=== PATIENT | male | born 1930 | race Caucasian/White ===

== ENCOUNTER 2017-09-09 09:40 | Inpatient (IN) | payer OTHER ==
[2017-09-09 10:47] VITALS: BMI 17.2
[2017-09-09] MEDS ORDERED: SODIUM CHLORIDE 500 ML IV STA ×2 (11:18→12:37)
--- NOTE | 2017-09-09 11:39 | PDOC ---
History of Present Illness - General Chief Complaint: Altered Mental Status Stated Complaint: Altered Mental Status Time Seen by Provider: 09/09/17 10:00 History Source: Patient, Spouse - History of Present Illness Timing/Duration: other (last night) Associated Symptoms: reports: chest pain, cough, fever/chills. denies: headaches, nausea/vomiting, shortness of breath, syncope Past History - Past Medical History Allergies/Adverse Reactions: Allergies Allergy/AdvReac Type Severity Reaction Status Date / Time No Known Allergies Allergy Verified 09/09/17 10:47 COPD: No HTN: Yes - Surgical History Cardiac Surgery: Yes (quadruple bypass) - Suicide/Smoking/Psychosocial Hx Smoking History: Never smoked Have you smoked in the past 12 months: No Information on smoking cessation initiated: No Drug/Substance Use Hx: No Substance Use Type: None Review of Systems - Review of Systems Constitutional: Yes: Fever Respiratory: Yes: Cough. No: Shortness of Breath, Wheezing Cardiac (ROS): Yes: Chest Pain *Physical Exam - Vital Signs Last Vital Signs Temp Pulse Resp BP Pulse Ox 97.7 F 90 18 138/76 97 09/09/17 09:40 09/09/17 09:40 09/09/17 09:40 09/09/17 09:40 09/09/17 09:40 - Physical Exam General Appearance: Yes: Appropriately Dressed. No: Apparent Distress HEENT: positive: EOMI, Other (dry MM). negative: Scleral Icterus (R), Scleral Icterus (L) Neck: positive: Supple. negative: Lymphadenopathy (R), Lymphadenopathy (L) Respiratory/Chest: positive: Lungs Clear, Normal Breath Sounds. negative: Respiratory Distress Cardiovascular: positive: Regular Rate, S1, S2 Gastrointestinal/Abdominal: positive: Soft. negative: Tender Extremity: positive: Normal Inspection Integumentary: positive: Dry, Warm Neurologic: positive: Alert, Normal Mood/Affect (oriented x1 (baseline per , hx of dementia)) ED Treatment Course - LABORATORY CBC & Chemistry Diagram: 09/09/17 11:50 09/09/17 12:28 - RADIOLOGY Radiology Studies Ordered: Category Date Time Status CHEST X-RAY PORTABLE* [RAD] Stat Radiology 09/09/17 10:59 Taken Medical Decision Making - Medical Decision Making 09/09/17 11:36 87-year-old male history of jxr-zpgvfhq-tpaocteix diabetic, hypertension, dementia per , here with productive cough with pleuritic chest pain and possibly confusion since last night. Had a low-grade fever for 100.9 this a.m. as per . Able to give some history and only states he has cough with chest pain. Denies sob, body aches, nausea, vomiting, headache, neck pain, abd pain, change to BM or dysuria See exam Fever w/ cough R/o PNA vs influenza Stable w/ dry MM, exam otherwise unremarkable -IVF -CXR -ekg -labs and flu -dispo pending 09/09/17 12:41 Patient flu positive. Will give IV fluids and Tamiflu. Also has a troponin of 0.1 with T-wave inversions in 11, 111 and aVF, no old to compare. Patient does report chest pain but only in setting of cough. 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 Patient placed on monitor. Will contact Dr. Lee and get cards rec 09/09/17 12:[address] Lee wants patient admitted to . States patient currently does not have any drilling plant operator. Will discuss case with covering cards 09/09/17 13:[address] Lange who is covering for Dr. Fritz, states no cardiac recommendations at this time. Will see patient in house *DC/Admit/Observation/Transfer Diagnosis at time of Disposition: Influenza A, Elevated troponin - Discharge Dispostion Condition at time of disposition: Fair Admit: Yes - Referrals Referrals: Wyatt Lee MD [Primary Care Provider] - - Patient Instructions - Post Discharge Activity
[2017-09-09 12:30] LABS: N-TERMINAL BNP 8765.45 pg/ml (5-450)
[2017-09-09] MEDS ORDERED: OSELTAMIVIR PHOSPHATE 75 MG CAPSULE PO ONE (12:37)
[2017-09-09 12:40] LABS: BASO % 0.3 % (0-2.0); HEMATOCRIT 43.2 % (35.4-49); MCH 29.5 pg (25.7-33.7); MCHC 32.5 g/dl (32.0-35.9); MEAN PLT VOLUME 8.7 fl (7.5-11.1); MONO % 5.8 % (3.8-10.2); NEUT % 90.9 % (42.8-82.8); PLATELET COUNT 206 K/MM3 (134-434); RBC 4.75 M/mm3 (4.00-5.60); RDW 13.7 % (11.9-15.9); WHITE BLOOD COUNT 18.5 K/mm3 (4.0-10.0)
[2017-09-09 13:00] LABS: ALBUMIN 3.5 g/dl (3.4-5.0); ALK PHOS 139 U/L (45-117); ANION GAP 13 (8-16); BILIRUBIN,TOTAL 1.7 mg/dL (0.2-1.0); BLOOD UREA NITROGEN 24 mg/dL (7-18); CALCIUM 8.9 mg/dL (8.5-10.1); CHLORIDE 101 mmol/L (98-107); CO2 24 mmol/L (21-32); GLUCOSE,RANDOM 191 mg/dL (74-106); SODIUM 138 mmol/L (136-145); TOT PROT 7.6 g/dl (6.4-8.2)
[2017-09-09] MEDS ORDERED: OSELTAMIVIR PHOSPHATE 75 MG CAPSULE ONE (13:20)
[2017-09-09 14:36] LABS: URINE APPEARANCE CLEAR; URINE BILIRUBIN NEGATIVE (NEGATIVE); URINE BLOOD 1+ (NEGATIVE); URINE COLOR DKYELLOW; URINE GLUCOSE (UA) NEGATIVE (NEGATIVE); URINE KETONE 1+ (NEGATIVE); URINE LEUK ESTERASE NEGATIVE (NEGATIVE); URINE NITRITE NEGATIVE (NEGATIVE); URINE UROBILINOGEN 4.0 E.U/dl mg/dL (0.2-1.0)
[2017-09-09 15:11] LABS: URINE PROTEIN 2+ (NEGATIVE)
[2017-09-09 15:17] LABS: CREATININE 1.4 mg/dL (0.7-1.3)
[2017-09-09 15:18] LABS: POTASSIUM 4.1 mmol/L (3.5-5.1); SGOT/AST 36 U/L (15-37)
[2017-09-09 15:29] LABS: SGPT/ALT 26 U/L (12-78)
[2017-09-09 15:31] LABS: EPI CELLS RARE /HPF (FEW); URINE MUCUS RARE
[2017-09-09] MEDS: ATORVASTATIN CA 10 MG TABLET (FP) PO SCH (23:00)
--- NOTE | 2017-09-10 01:48 | CON.CARD ---
Consult Consult Specialty:: cardiology Reason for Consultation:: shorrness of breath; hx CABG - History of Present Illness History of Present Illness: 87-year-old male (b. [place]), with PMhistory of dlk-poeevpy-sxllcvtlj diabetes, CABG ( reports pt having the procedure ?1998; hx multiple MIs), s/ p coronary angiogram 2016 ([place]; per , was told he might need "a pacemaker"), hypertension, dementia (hx primarily given by ), now presents with productive cough with pleuritic chest pain and possibly confusion since last night. Had a low-grade fever for 100.9 this a.m. as per . Able to give some history and only states he has cough with chest pain. 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 Cardio/Vascular: Yes: CAD, HTN, [place] Psych: Yes: Other - Past Surgical History Past Surgical History: Yes: CABG Additional Surgical History: coronary angiogram 2016; reportedly did not require stent or other PCI - Smoking History Smoking history: Never smoked Have you smoked in the past 12 months: No - Social History Usual Living Arrangement: With Spouse Home Medications - Allergies Allergies/Adverse Reactions: Allergies Allergy/AdvReac Type Severity Reaction Status Date / Time No Known Allergies Allergy Verified 09/09/17 10:47 - Home Medications Home Medications: Ambulatory Orders Amlodipine Besylate [Norvasc -] 2.5 mg PO DAILY 09/09/17 Clopidogrel Bisulfate [Clopidogrel] 75 mg PO DAILY 09/09/17 Digoxin [Lanoxin -] 0.125 mg PO DAILY 09/09/17 Isosorbide Mononitrate [Imdur -] 30 mg PO DAILY 09/09/17 Metformin HCl 500 mg PO BID 09/09/17 Metoprolol Tartrate 25 mg PO DAILY 09/09/17 Spironolactone 25 mg PO DAILY 09/09/17 Family Disease History - Family Disease History Family History: Denies Review of Systems - Review of Systems Constitutional: reports: Weakness Eyes: reports: Blurred Vision HENT: reports: Hearing Loss Neck: reports: No Symptoms Cardiovascular: reports: Shortness of Breath Respiratory: reports: Cough, SOB Gastrointestinal: reports: No Symptoms Genitourinary: reports: No Symptoms Musculoskeletal: reports: Muscle Weakness Neurological: reports: Weakness Psychiatric: reports: Other - Risk Factors Known Risk Factors: Yes: Age, Gender, Hypertension, Physical Inactivity, Prior [place] /Emb Stroke, Other (CABG; CHF) Vital Signs: Vital Signs Temperature 97.7 F 09/09/17 09:40 Pulse Rate 90 09/09/17 09:40 Respiratory Rate 18 09/09/17 09:40 Blood Pressure 138/76 09/09/17 09:40 O2 Sat by Pulse Oximetry (%) 97 09/09/17 09:40 Constitutional: Yes: Thin, Other (says a few words, then lapses back into sleep) Eyes: Yes: Conjunctiva Clear HENT: Yes: WNL Neck: Yes: Decreased ROM Respiratory: Yes: Diminished, SOB, Tachypnea Gastrointestinal: Yes: Soft Renal/: No: Anuria Cardiovascular: Yes: Regular Rate and Rhythm JVD: No Carotid Bruit: No Heart Sounds: Yes: S1, S2, S4 Murmur: Yes: Systolic Murmur, Grade 2 Musculoskeletal: Yes: Muscle Weakness Extremities: Yes: Cool Edema: No Peripheral Pulses WNL: No Peripheral Pulses: 1+ Left Doralis Pedis, 1+ Right Dorsalis Pedis Integumentary: Yes: WNL Neurological: Yes: Weakness Psychiatric: Yes: Other - Other Data Labs, Other Data: CBC, BMP 09/09/17 11:50 09/09/17 12:28 Troponin, BNP 09/09/17 09/09/17 09/09/17 11:24 11:50 20:30 Troponin I 0.17 H 0.34 H D B-Natriuretic Peptide 8765.45 H Troponin, BNP 09/09/17 09/09/17 09/09/17 11:24 11:50 20:30 Troponin I 0.17 H 0.34 H D B-Natriuretic Peptide 8765.45 H Echo: Pending Imaging - Results Chest X-ray: Image Reviewed (no acute infiltrate) EKG: Image Reviewed (NSR) Problem List - Problems (1) Congestive heart disease Assessment/Plan: F/u ECHO. BUN/Cr, electrolytes, daily weight, Is ans Os. Code(s): I50.9 - HEART FAILURE, UNSPECIFIED (2) Coronary artery disease Assessment/Plan: s/p CABG ?1998. s/p coronary angiogram 2017 F/u [facility]NI serially. Code(s): I25.10 - ATHSCL HEART DISEASE OF [place] CORONARY ARTERY W/O ANG PCTRS (3) Influenza A Assessment/Plan: f/u with ID. Code(s): J10.1 - FLU DUE TO OTH IDENT INFLUENZA VIRUS W OTH RESP MANIFEST (4) Sepsis Code(s): A41.9 - SEPSIS, UNSPECIFIED ORGANISM (5) Renal insufficiency Code(s): N28.9 - DISORDER OF KIDNEY AND URETER, UNSPECIFIED (6) Leukocytosis Code(s): D72.829 - ELEVATED WHITE BLOOD CELL COUNT, UNSPECIFIED (7) Hypercholesteremia Assessment/Plan: on atorvastatin. Code(s): E78.00 - PURE HYPERCHOLESTEROLEMIA, UNSPECIFIED (8) Shortness of breath Code(s): R06.02 - SHORTNESS OF BREATH (9) Dementia Code(s): F03.90 - UNSPECIFIED DEMENTIA WITHOUT BEHAVIORAL DISTURBANCE
[2017-09-10] MEDS ORDERED: ACETAMINOPHEN 325 MG TABLET (FP) ONE (07:01)
[2017-09-10] MEDS: ACETAMINOPHEN 325 MG TABLET (FP) PO PRN ×2 (07:04→18:13)
[2017-09-10 07:28] LABS: ALBUMIN 3.3 g/dl (3.4-5.0); BLOOD UREA NITROGEN 25 mg/dL (7-18); CHLORIDE 102 mmol/L (98-107); POTASSIUM 3.9 mmol/L (3.5-5.1); SODIUM 139 mmol/L (136-145)
[2017-09-10 07:33] LABS: ALK PHOS 136 U/L (45-117); ANION GAP 12 (8-16); BILIRUBIN,TOTAL 1.8 mg/dL (0.2-1.0); CHOLESTEROL 161 mg/dL (50-200); CO2 25 mmol/L (21-32); GLUCOSE,RANDOM 149 mg/dL (74-106); SGOT/AST 42 U/L (15-37); SGPT/ALT 26 U/L (12-78); TOT PROT 7.2 g/dl (6.4-8.2); TRIGLYCERIDES 75 mg/dL (35-160)
[2017-09-10 07:44] LABS: HEMATOCRIT 45.4 % (35.4-49); HEMOGLOBIN 14.9 GM/dL (11.7-16.9); MCHC 32.8 g/dl (32.0-35.9); MEAN CELL VOLUME 91.6 fl (80-96); MEAN PLT VOLUME 8.9 fl (7.5-11.1); PLATELET COUNT 176 K/MM3 (134-434); RBC 4.96 M/mm3 (4.00-5.60); RDW 13.7 % (11.9-15.9); WHITE BLOOD COUNT 17.3 K/mm3 (4.0-10.0)
--- NOTE | 2017-09-10 08:04 | EKG ---
Test Reason : Blood Pressure : / mmHG Vent. Rate : 092 BPM Atrial Rate : 092 BPM P-R Int : 234 ms QRS Dur : 136 ms QT Int : 392 ms P-R-T Axes : 000 100 -67 degrees QTc Int : 484 ms SINUS RHYTHM WITH 1ST DEGREE A-V BLOCK RIGHTWARD AXIS NON-SPECIFIC INTRA-VENTRICULAR CONDUCTION BLOCK CANNOT RULE OUT SEPTAL INFARCT , AGE UNDETERMINED T WAVE ABNORMALITY, CONSIDER INFERIOR ISCHEMIA ABNORMAL ECG NO PREVIOUS ECGS AVAILABLE Confirmed by BECK BRADY MD ([id number]) on 09/10/2017 8:04:27 AM Referred By: Confirmed By:BECK BRADY MD
[2017-09-10 08:11] LABS: HDL CHOLESTEROL 64 mg/dL (40-60); LDL CHOLESTEROL (ONLY SJRH) 92 mg/dL (5-100)
[2017-09-10] MEDS ORDERED: METOPROLOL TARTRATE 25 MG TABLET (FP) PO SCH (10:00)
--- NOTE | 2017-09-10 10:04 | PN ---
Progress Note, Physician History of Present Illness: 87-year-old male (b. [place]), with PMhistory of tsz-fotrwhi-hzzmdxpdw diabetes, CABG ( reports pt having the procedure ?1998; hx multiple MIs), s/ p coronary angiogram 2016 ([place]; per , was told he might need "a pacemaker"), hypertension, dementia (hx primarily given by ), now presents with productive cough with pleuritic chest pain and possibly confusion since last night. Had a low-grade fever for 100.9 this a.m. as per . Able to give some history and only states he has cough with chest pain. Denies sob, body aches, nausea, vomiting, headache, neck pain, abd pain, change to BM or dysuria - Current Medication List Current Medications: Active Medications Acetaminophen (Tylenol -) 650 mg PO Q6H PRN PRN Reason: PAIN OR FEVER Last Admin: 09/10/17 07:04 Dose: 650 mg Amlodipine Besylate (Norvasc -) 2.5 mg PO DAILY [facility] Aspirin (Ecotrin -) 81 mg PO DAILY [facility] Atorvastatin Calcium (Lipitor -) 10 mg PO HS [facility] Last Admin: 09/09/17 23:00 Dose: 10 mg Clopidogrel Bisulfate (Plavix -) 75 mg PO DAILY [facility] Digoxin (Lanoxin -) 0.125 mg PO DAILY [facility] Isosorbide Mononitrate (Imdur -) 30 mg PO DAILY [facility] Metformin HCl (Glucophage -) 500 mg PO BID [facility] Metoprolol Tartrate (Lopressor -) 25 mg PO DAILY [facility] Oseltamivir Phosphate (Tamiflu -) 75 mg PO BID [facility] Stop: 09/15/17 09:59 - Objective Vital Signs: Vital Signs Temperature 97.7 F 09/09/17 09:40 Pulse Rate 103 H 09/10/17 09:45 Respiratory Rate 18 09/10/17 09:45 Blood Pressure 130/87 09/10/17 09:45 O2 Sat by Pulse Oximetry (%) 95 09/10/17 09:45 Eyes: Yes: WNL, Conjunctiva Clear, EOM Intact HENT: Yes: WNL, Atraumatic, Normocephalic Neck: Yes: WNL, Supple, Trachea Midline Cardiovascular: Yes: WNL, Regular Rate and Rhythm Respiratory: Yes: WNL, Regular, CTA Bilaterally Gastrointestinal: Yes: WNL, Normal Bowel Sounds Genitourinary: Yes: WNL Musculoskeletal: Yes: WNL Extremities: Yes: WNL Edema: No Integumentary: Yes: WNL Neurological: Yes: WNL, Alert, Oriented ...Motor Strength: WNL Psychiatric: Yes: WNL Labs: CBC, BMP 09/10/17 06:06 09/10/17 06:06 Assessment/Plan - Problems (1) Congestive heart disease Assessment/Plan: F/u ECHO. BUN/Cr, electrolytes, daily weight, Is ans Os. Code(s): I50.9 - HEART FAILURE, UNSPECIFIED (2) Coronary artery disease Assessment/Plan: s/p CABG ?1998. s/p coronary angiogram 2017 F/u [facility] serially. Code(s): I25.10 - ATHSCL HEART DISEASE OF [place] CORONARY ARTERY W/O ANG PCTRS (3) Influenza A Assessment/Plan: f/u with ID. Code(s): J10.1 - FLU DUE TO OTH IDENT INFLUENZA VIRUS W OTH RESP MANIFEST (4) Sepsis Code(s): A41.9 - SEPSIS, UNSPECIFIED ORGANISM (5) Renal insufficiency Code(s): N28.9 - DISORDER OF KIDNEY AND URETER, UNSPECIFIED (6) Leukocytosis Code(s): D72.829 - ELEVATED WHITE BLOOD CELL COUNT, UNSPECIFIED (7) Hypercholesteremia Assessment/Plan: on atorvastatin. Code(s): E78.00 - PURE HYPERCHOLESTEROLEMIA, UNSPECIFIED (8) Shortness of breath Code(s): R06.02 - SHORTNESS OF BREATH (9) Dementia Code(s): F03.90 - UNSPECIFIED DEMENTIA WITHOUT BEHAVIORAL DISTURBANCE
[2017-09-10] MEDS: ASPIRIN COATED 81 MG TABLET.EC PO SCH (10:35)
[2017-09-10] MEDS: ISOSORBIDE MONONITRATE 30 MG TAB.SR.24H (FP) PO SCH (10:41)
[2017-09-10] MEDS: DIGOXIN 0.125 MG TABLET (FP) PO SCH (10:41)
[2017-09-10] MEDS: amLODIPine BESYLATE 2.5 MG TABLET (FP) PO SCH (10:41)
[2017-09-10] MEDS: metFORMIN HCL 500 MG TABLET (FP) PO SCH ×2 (10:41→16:14)
[2017-09-10] MEDS: OSELTAMIVIR PHOSPHATE 75 MG CAPSULE PO SCH ×2 (10:42→21:14)
[2017-09-10] MEDS: CLOPIDOGREL BISULFATE 75 MG TABLET (FP) PO SCH (10:42)
--- NOTE | 2017-09-10 16:09 | CON.ID ---
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 Cardio/Vascular: Yes: CAD, HTN, [place] Psych: Yes: Other - Past Surgical History Past Surgical History: Yes: CABG Additional Surgical History: coronary angiogram 2016; reportedly did not require stent or other PCI - Smoking History Smoking history: Never smoked Have you smoked in the past 12 months: No - Social History Usual Living Arrangement: With Spouse ADL: Family Assistance Home Medications - Allergies Allergies/Adverse Reactions: Allergies Allergy/AdvReac Type Severity Reaction Status Date / Time No Known Allergies Allergy Verified 09/09/17 10:47 - Home Medications Home Medications: Ambulatory Orders Amlodipine Besylate [Norvasc -] 2.5 mg PO DAILY 09/09/17 Clopidogrel Bisulfate [Clopidogrel] 75 mg PO DAILY 09/09/17 Digoxin [Lanoxin -] 0.125 mg PO DAILY 09/09/17 Isosorbide Mononitrate [Imdur -] 30 mg PO DAILY 09/09/17 Metformin HCl 500 mg PO BID 09/09/17 Metoprolol Tartrate 25 mg PO DAILY 09/09/17 Spironolactone 25 mg PO DAILY 09/09/17 Family Disease History - Family Disease History Family History: Unable to Obtain Review of Systems - Review of Systems Constitutional: reports: Other (confusion). denies: Fever, Lethargy Eyes: reports: No Symptoms HENT: reports: No Symptoms Neck: reports: No Symptoms Cardiovascular: reports: No Symptoms (with cough), Chest Pain Respiratory: reports: Cough Gastrointestinal: reports: No Symptoms. denies: Abdominal Pain, Diarrhea, Nausea, Vomiting Genitourinary: reports: No Symptoms Musculoskeletal: reports: No Symptoms Physical Exam Vital Signs: Vital Signs Temperature 97.5 F L 09/10/17 14:10 Pulse Rate 84 09/10/17 14:10 Respiratory Rate 18 09/10/17 14:10 Blood Pressure 108/69 09/10/17 14:10 O2 Sat by Pulse Oximetry (%) 99 09/10/17 10:15 Constitutional: Yes: Thin, Other (agitated , does not wish to talk to me, permitted limited exam) Eyes: Yes: Conjunctiva Clear HENT: Yes: Atraumatic, Normocephalic Neck: Yes: Supple Cardiovascular: Yes: Regular Rate and Rhythm Respiratory: Yes: Rhonchi Gastrointestinal: Yes: Other (would not permit exam) Musculoskeletal: Yes: WNL Extremities: Yes: WNL Edema: No Psychiatric: Yes: Alert, Agitated Labs: CBC, BMP 09/10/17 06:06 09/10/17 06:06 UA negative Imaging - Results Chest X-ray: Report Reviewed, Image Reviewed Problem List - Problems (1) Influenza A Code(s): J10.1 - FLU DUE TO OTH IDENT INFLUENZA VIRUS W OTH RESP MANIFEST (2) Leukocytosis Code(s): D72.829 - ELEVATED WHITE BLOOD CELL COUNT, UNSPECIFIED (3) Elevated troponin Code(s): R74.8 - ABNORMAL LEVELS OF OTHER SERUM ENZYMES Assessment/Plan influenza A- continue tamiflu leukocytosis - blood cultures, rocephin, consider RUQ ultrasound CAD with positive troponins
[2017-09-10] MEDS ORDERED: cefTRIAXone 1 GM/50 ML BAG (PRE-DOCKED) IVPB SCH (16:45)
[2017-09-10] MEDS ORDERED: CEFTRIAXONE 1 G/50 ML PREMIX 50 ML IVPB SCH (16:45)
[2017-09-10] MEDS ORDERED: diphenhydrAMINE HCL 25 MG CAPSULE (FP) PO ONE (17:50)
[2017-09-10] MEDS: SODIUM CHLORIDE 1,000 ML IV SCH (18:21)
[2017-09-10] MEDS: CEFTRIAXONE 1 G/50 ML PREMIX 50 ML IVPB SCH (20:50)
[2017-09-10] MEDS ORDERED: PT OWN MED DRAWER 7, Y5N ONE (21:11)
[2017-09-10] MEDS: ATORVASTATIN CA 10 MG TABLET (FP) PO SCH (21:14)
--- NOTE | 2017-09-10 21:41 | HP ---
Admitting History and Physical - Primary Care Physician PCP: Ra Dodge - Admission Chief Complaint: chest pain, influenza History of Present Illness: 87-year-old male history of hei-ljypogb-vdspyvvso diabetic, hypertension, dementia per , here with productive cough with pleuritic chest pain and possibly confusion since last night. Had a low-grade fever for 100.9 this a.m. as per . Able to give some history and only states he has cough with chest pain. Denies sob, body aches, nausea, vomiting, headache, neck pain, abd pain, change to BM or dysuria Upon questioning ,she mentions that patient never takes influenza vaccine because he got flu like symptoms when he last took it years ago. 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 Cardiovascular: Yes: CAD, HTN, [place] Psych: Yes: Other - Past Surgical History Past Surgical History: Yes: CABG - Smoking History Smoking history: Never smoked Have you smoked in the past 12 months: No - Social History ADL: Family Assistance Home Medications - Allergies Allergies/Adverse Reactions: Allergies Allergy/AdvReac Type Severity Reaction Status Date / Time No Known Allergies Allergy Verified 09/09/17 10:47 - Home Medications Home Medications: Ambulatory Orders Amlodipine Besylate [Norvasc -] 2.5 mg PO DAILY 09/09/17 Clopidogrel Bisulfate [Clopidogrel] 75 mg PO DAILY 09/09/17 Digoxin [Lanoxin -] 0.125 mg PO DAILY 09/09/17 Isosorbide Mononitrate [Imdur -] 30 mg PO DAILY 09/09/17 Metformin HCl 500 mg PO BID 09/09/17 Metoprolol Tartrate 25 mg PO DAILY 09/09/17 Spironolactone 25 mg PO DAILY 09/09/17 Review of Systems - Review of Systems Constitutional: reports: Chills, Malaise, Weakness Eyes: reports: No Symptoms HENT: reports: No Symptoms Neck: reports: No Symptoms Cardiovascular: reports: Chest Pain Respiratory: reports: Cough Gastrointestinal: reports: No Symptoms Genitourinary: reports: No Symptoms Breasts: reports: No Symptoms Reported Musculoskeletal: reports: No Symptoms Integumentary: reports: No Symptoms Neurological: reports: No Symptoms Endocrine: reports: No Symptoms Hematology/Lymphatic: reports: No Symptoms Psychiatric: reports: No Symptoms Physical Examination Vital Signs: Vital Signs Temperature 97.3 F L 09/10/17 16:15 Pulse Rate 102 H 09/10/17 16:15 Respiratory Rate 20 09/10/17 16:15 Blood Pressure 147/75 09/10/17 16:15 O2 Sat by Pulse Oximetry (%) 96 09/10/17 15:00 Constitutional: Yes: Well Nourished, No Distress, Calm Cardiovascular: Yes: Regular Rate and Rhythm Respiratory: Yes: Regular Gastrointestinal: Yes: Normal Bowel Sounds, Soft Edema: No Peripheral Pulses WNL: Yes Neurological: Yes: Alert, Oriented Psychiatric: Yes: Alert, Oriented Labs: CBC, BMP 09/10/17 06:06 09/10/17 06:06 Imaging - Results Chest X-ray: Report Reviewed Problem List - Problems (1) Coronary artery disease Assessment/Plan: -seen by cardiology -statin -asa -plavix Code(s): I25.10 - ATHSCL HEART DISEASE OF [place] CORONARY ARTERY W/O ANG PCTRS (2) Dementia Assessment/Plan: -Psychiatry consult -behavioral disturbance at [place] Code(s): F03.90 - UNSPECIFIED DEMENTIA WITHOUT BEHAVIORAL DISTURBANCE (3) Elevated troponin Assessment/Plan: -increasing trend -repeat EKG -seen by Cardiology -tele monitor -Echo reviewed Code(s): R74.8 - ABNORMAL LEVELS OF OTHER SERUM ENZYMES (4) Influenza A Assessment/Plan: -droplet precaution -ID consult -Tamiflu -IVF Code(s): J10.1 - FLU DUE TO OTH IDENT INFLUENZA VIRUS W OTH RESP MANIFEST (5) Leukocytosis Assessment/Plan: -seen by ID -BCUC -IVF -IV abx Code(s): D72.829 - ELEVATED WHITE BLOOD CELL COUNT, UNSPECIFIED (6) Sepsis Assessment/Plan: -seen by ID -BC -IV abx -tylenol for fever >100.0F Code(s): A41.9 - SEPSIS, UNSPECIFIED ORGANISM Assessment/Plan see problem list
[2017-09-10] MEDS ORDERED: LORazepam 2 MG/ML SDV VIAL IVPUSH ONE (23:24)
[2017-09-11] MEDS: INSULIN SLIDING SCALE (NOVOLOG) 1 VIAL SQ SCH ×3 (06:08→17:02)
[2017-09-11] MEDS: SODIUM CHLORIDE 1,000 ML IV SCH (06:59)
--- NOTE | 2017-09-11 10:29 | PN ---
Progress Note, Physician Chief Complaint: Pt opens eyes ; moves limbs spontaneously; confused. History of Present Illness: 87-year-old male (b. [place]), with PM history of zuw-jlxjfcv-pghuwhifv diabetes, CABG ( reports pt having the procedure ?1998; hx multiple MIs), s/ p coronary angiogram 2016 ([place]; per , was told he might need "a pacemaker"), hypertension, dementia (hx primarily given by ), now presents with productive cough with pleuritic chest pain and possibly confusion since last night. Had a low-grade fever for 100.9 this a.m. as per . Able to give some history and only states he has cough with chest pain. Denies sob, body aches, nausea, vomiting, headache, neck pain, abd pain, change to BM or dysuria - Current Medication List Current Medications: Active Medications Acetaminophen (Tylenol -) 650 mg PO Q6H PRN PRN Reason: PAIN OR FEVER Last Admin: 09/10/17 18:13 Dose: 650 mg Amlodipine Besylate (Norvasc -) 2.5 mg PO DAILY [facility] Last Admin: 09/10/17 10:41 Dose: 2.5 mg Aspirin (Ecotrin -) 81 mg PO DAILY [facility] Last Admin: 09/10/17 10:35 Dose: 81 mg Atorvastatin Calcium (Lipitor -) 10 mg PO HS [facility] Last Admin: 09/10/17 21:14 Dose: 10 mg Clopidogrel Bisulfate (Plavix -) 75 mg PO DAILY [facility] Last Admin: 09/10/17 10:42 Dose: 75 mg Digoxin (Lanoxin -) 0.125 mg PO DAILY [facility] Last Admin: 09/10/17 10:41 Dose: 0.125 mg CEFTRIAXONE 1 G/50 ML PREMIX (Ceftriaxone 1 Gm-D5w Bag) 50 mls @ 100 mls/hr IVPB DAILY [facility] Last Admin: 09/10/17 20:50 Dose: 100 mls/hr Sodium Chloride (Normal Saline -) 1,000 mls @ 75 mls/hr IV ASDIR [facility] Last Admin: 09/11/17 06:59 Dose: 75 mls/hr Insulin Aspart (Novolog Vial Sliding Scale -) 1 vial SQ TIDAC [facility] PRN Reason: Protocol Last Admin: 09/11/17 06:08 Dose: Not Given Isosorbide Mononitrate (Imdur -) 30 mg PO DAILY [facility] Last Admin: 09/10/17 10:41 Dose: 30 mg Metoprolol Succinate (Toprol Xl -) 25 mg PO DAILY [facility] Oseltamivir Phosphate (Tamiflu -) 75 mg PO BID [facility] Stop: 09/15/17 09:59 Last Admin: 09/10/17 21:14 Dose: 75 mg - Objective Vital Signs: Vital Signs Temperature 97.9 F 09/11/17 05:53 Pulse Rate 97 H 09/11/17 05:53 Respiratory Rate 20 09/11/17 05:53 Blood Pressure 130/65 09/11/17 05:53 O2 Sat by Pulse Oximetry (%) 96 09/10/17 21:00 Constitutional: Yes: Anxious, Thin Eyes: Yes: WNL HENT: Yes: WNL Neck: Yes: WNL Cardiovascular: Yes: S1 (split), S2 Respiratory: Yes: Regular Gastrointestinal: Yes: Soft ...Rectal Exam: Yes: Deferred Genitourinary: No: Anuria Breast(s): Yes: WNL Musculoskeletal: Yes: Muscle Weakness Extremities: Yes: Cool Edema: No Peripheral Pulses WNL: Yes Integumentary: Yes: WNL Neurological: Yes: Confusion, Weakness Psychiatric: Yes: Other (dementia) Labs: CBC, BMP 09/10/17 06:06 09/10/17 06:06 Abnormal Lab Results 09/10/17 06:06 BUN 25 H Random Glucose 149 H D Total Bilirubin 1.8 H AST 42 H Alkaline Phosphatase 136 H Troponin I 0.33 H Albumin 3.3 L HDL Cholesterol 64 H Digoxin 0.7046 L - ....Imaging Ultrasound: Report Reviewed (gallstones; no signs of acute cholecystitis) Other: Image Reviewed (telemetry: NSR) Problem List - Problems (1) Congestive heart disease Assessment/Plan: ECHO: normal LVEF BUN/Cr, electrolytes, daily weight, Is ands Os. Code(s): I50.9 - HEART FAILURE, UNSPECIFIED (2) Coronary artery disease Assessment/Plan: s/p CABG ?1998. s/p coronary angiogram 2016 TNI 0.17-->0.33; CKBM relative index is low. Likely elevated from demand stress from sepsis. No acute STT changes on EKG ECHO: normal LVEF. Code(s): I25.10 - ATHSCL HEART DISEASE OF [place] CORONARY ARTERY W/O ANG PCTRS (3) Influenza A Assessment/Plan: f/u with ID. Code(s): J10.1 - FLU DUE TO OTH IDENT INFLUENZA VIRUS W OTH RESP MANIFEST (4) Sepsis Code(s): A41.9 - SEPSIS, UNSPECIFIED ORGANISM (5) Renal insufficiency Code(s): N28.9 - DISORDER OF KIDNEY AND URETER, UNSPECIFIED (6) Leukocytosis Code(s): D72.829 - ELEVATED WHITE BLOOD CELL COUNT, UNSPECIFIED (7) Hypercholesteremia Assessment/Plan: on atorvastatin; increase to 20 mg daily (LDL 92 mg/dL). Code(s): E78.00 - PURE HYPERCHOLESTEROLEMIA, UNSPECIFIED (8) Shortness of breath Code(s): R06.02 - SHORTNESS OF BREATH (9) Dementia Code(s): F03.90 - UNSPECIFIED DEMENTIA WITHOUT BEHAVIORAL DISTURBANCE
--- NOTE | 2017-09-11 10:32 | EKG ---
Test Reason : Blood Pressure : / mmHG Vent. Rate : 092 BPM Atrial Rate : 092 BPM P-R Int : 000 ms QRS Dur : 132 ms QT Int : 388 ms P-R-T Axes : 000 101 167 degrees QTc Int : 479 ms SINUS RHYTHM WITH PREMATURE ATRIAL COMPLEXES IN A PATTERN OF BIGEMINY RIGHT BUNDLE BRANCH BLOCK T WAVE ABNORMALITY, CONSIDER INFERIOR ISCHEMIA ABNORMAL ECG WHEN COMPARED WITH ECG OF 09-SEP-2017 10:08, PREMATURE ATRIAL COMPLEXES ARE NOW PRESENT AK INTERVAL HAS DECREASED RIGHT BUNDLE BRANCH BLOCK HAS REPLACED NON-SPECIFIC INTRA-VENTRICULAR CONDUCTION BLOCK MINIMAL CRITERIA FOR SEPTAL INFARCT ARE NO LONGER PRESENT Confirmed by FIOR SEGUNDO MD ([id number]) on 09/11/2017 10:31:46 AM Referred By: Confirmed By:FIOR SEGUNDO MD
[2017-09-11] MEDS ORDERED: PT OWN MED DRAWER 7, Y5N ONE (10:43)
[2017-09-11] MEDS: CEFTRIAXONE 1 G/50 ML PREMIX 50 ML IVPB SCH (10:48)
[2017-09-11] MEDS: OSELTAMIVIR PHOSPHATE 75 MG CAPSULE PO SCH ×2 (10:53→21:29)
[2017-09-11] MEDS: amLODIPine BESYLATE 2.5 MG TABLET (FP) PO SCH (10:53)
[2017-09-11] MEDS: DIGOXIN 0.125 MG TABLET (FP) PO SCH (10:53)
[2017-09-11] MEDS: CLOPIDOGREL BISULFATE 75 MG TABLET (FP) PO SCH (10:53)
[2017-09-11] MEDS: metoPROLOL SUCCINATE 25 MG TAB.SR.24H (FP) PO SCH (10:53)
[2017-09-11] MEDS: ISOSORBIDE MONONITRATE 30 MG TAB.SR.24H (FP) PO SCH (10:53)
[2017-09-11] MEDS: ASPIRIN COATED 81 MG TABLET.EC PO SCH (10:53)
--- NOTE | 2017-09-11 11:57 | CON.PSY ---
Psychiatry Consult Chief Complaint: Patient seen for Psych eval. Spoke to patients daughterr and . 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 Symptoms: reports: Inability to Control Temper - Previous Psychiatric Treatment Outpatient: None Inpatient: None - Previous Substance Abuse Treatment Outpatient: None Inpatient: None - Current Medications Current Medications: Active Medications Acetaminophen (Tylenol -) 650 mg PO Q6H PRN PRN Reason: PAIN OR FEVER Last Admin: 09/10/17 18:13 Dose: 650 mg Amlodipine Besylate (Norvasc -) 2.5 mg PO DAILY [facility] Last Admin: 09/11/17 10:53 Dose: Not Given Aspirin (Ecotrin -) 81 mg PO DAILY [facility] Last Admin: 09/11/17 10:53 Dose: Not Given Atorvastatin Calcium (Lipitor -) 20 mg PO HS [facility] Clopidogrel Bisulfate (Plavix -) 75 mg PO DAILY [facility] Last Admin: 09/11/17 10:53 Dose: Not Given Digoxin (Lanoxin -) 0.125 mg PO DAILY [facility] Last Admin: 09/11/17 10:53 Dose: Not Given CEFTRIAXONE 1 G/50 ML PREMIX (Ceftriaxone 1 Gm-D5w Bag) 50 mls @ 100 mls/hr IVPB DAILY [facility] Last Admin: 09/11/17 10:48 Dose: 100 mls/hr Sodium Chloride (Normal Saline -) 1,000 mls @ 75 mls/hr IV ASDIR [facility] Last Admin: 09/11/17 06:59 Dose: 75 mls/hr Insulin Aspart (Novolog Vial Sliding Scale -) 1 vial SQ TIDAC [facility] PRN Reason: Protocol Last Admin: 09/11/17 10:53 Dose: Not Given Isosorbide Mononitrate (Imdur -) 30 mg PO DAILY [facility] Last Admin: 09/11/17 10:53 Dose: Not Given Metoprolol Succinate (Toprol Xl -) 25 mg PO DAILY [facility] Last Admin: 09/11/17 10:53 Dose: Not Given Oseltamivir Phosphate (Tamiflu -) 75 mg PO BID [facility] Stop: 09/15/17 09:59 Last Admin: 09/11/17 10:53 Dose: Not Given - Allergies Allergies: Allergies Allergy/AdvReac Type Severity Reaction Status Date / Time No Known Allergies Allergy Verified 09/09/17 10:47 - Current Living Status Usual Living Arrangement: With Spouse - Current Mental Status Evaluation Appearance: Disheveled Attitude: Guarded - Affect Affect: Constrictive Appropriateness: Not Appropriate - Mood Mood: Irritable - Speech/Language Expressive: Delayed - Psychomotor Activity Psychomotor Activity: Hyperactive - Thought Process Thought Process: [place] - Thought Content Hallucinations: Absent Delusions: Absent - Self Perception Self Perception: Depersonalization - Cognition Attention: Diminished Memory, Immediate Recall: Impaired Memory, Short Term: 0/3 Memory, Remote with Promptin/3 - Concentration Serial Sevens Intact: No Simple Calculations Intact: No - Abstraction Proverb Interpretation: [place] Judgement: Severely Impaired - Insight Insight: Impaired - Impulse Control Impulse Control: Moderately Impaired - Suicidal Ideation Suicidal Ideation: No - Homicidal Ideation Homicidal Ideation: No Assessment/Plan 1) Staret Zyprexa 5mg po hs.
[2017-09-11] MEDS: METOPROLOL TARTRATE 5 MG/5 ML VIAL IVPUSH SCH ×3 (12:38→21:22)
--- NOTE | 2017-09-11 13:29 | PN ---
Progress Note, Physician Chief Complaint: agitated last night was anxious got ativan and benadryl today in morning when i saw him he was sleepy not able to take oral meds, tried to feed him egg but was still in his mouth isolation bc of flu - Current Medication List Current Medications: Active Medications Acetaminophen (Tylenol -) 650 mg PO Q6H PRN PRN Reason: PAIN OR FEVER Last Admin: 09/10/17 18:13 Dose: 650 mg Amlodipine Besylate (Norvasc -) 2.5 mg PO DAILY [facility] Last Admin: 09/11/17 10:53 Dose: Not Given Aspirin (Ecotrin -) 81 mg PO DAILY [facility] Last Admin: 09/11/17 10:53 Dose: Not Given Atorvastatin Calcium (Lipitor -) 20 mg PO HS [facility] Clopidogrel Bisulfate (Plavix -) 75 mg PO DAILY [facility] Last Admin: 09/11/17 10:53 Dose: Not Given Digoxin (Lanoxin -) 0.125 mg PO DAILY [facility] Last Admin: 09/11/17 10:53 Dose: Not Given CEFTRIAXONE 1 G/50 ML PREMIX (Ceftriaxone 1 Gm-D5w Bag) 50 mls @ 100 mls/hr IVPB DAILY [facility] Last Admin: 09/11/17 10:48 Dose: 100 mls/hr Sodium Chloride (Normal Saline -) 1,000 mls @ 75 mls/hr IV ASDIR [facility] Last Admin: 09/11/17 06:59 Dose: 75 mls/hr Insulin Aspart (Novolog Vial Sliding Scale -) 1 vial SQ TIDAC [facility] PRN Reason: Protocol Last Admin: 09/11/17 10:53 Dose: Not Given Isosorbide Mononitrate (Imdur -) 30 mg PO DAILY [facility] Last Admin: 09/11/17 10:53 Dose: Not Given Metoprolol Succinate (Toprol Xl -) 25 mg PO DAILY [facility] Last Admin: 09/11/17 10:53 Dose: Not Given Metoprolol Tartrate (Lopressor Injection -) 2.5 mg IVPUSH Q6H-IV [facility] Last Admin: 09/11/17 12:38 Dose: 2.5 mg Olanzapine (Zyprexa -) 5 mg PO HS [facility] Oseltamivir Phosphate (Tamiflu -) 75 mg PO BID [facility] Stop: 09/15/17 09:59 Last Admin: 09/11/17 10:53 Dose: Not Given - Objective Vital Signs: Vital Signs Temperature 98.6 F 09/11/17 10:00 Pulse Rate 101 H 09/11/17 12:38 Respiratory Rate 20 09/11/17 10:00 Blood Pressure 136/79 09/11/17 12:38 O2 Sat by Pulse Oximetry (%) 96 09/10/17 21:00 Constitutional: Yes: Calm Cardiovascular: Yes: Regular Rate and Rhythm, S1, S2 Respiratory: Yes: CTA Bilaterally Gastrointestinal: Yes: Normal Bowel Sounds, Soft Edema: No Neurological: Yes: Other (patient does wake up when call his name and asked if he is ok then closes his eye) Labs: CBC, BMP 09/10/17 06:06 09/10/17 06:06 Problem List - Problems (1) Dementia Assessment/Plan: seen by psych started on zyprexa Code(s): F03.90 - UNSPECIFIED DEMENTIA WITHOUT BEHAVIORAL DISTURBANCE (2) Influenza A Assessment/Plan: isolation tamiflu Code(s): J10.1 - FLU DUE TO OTH IDENT INFLUENZA VIRUS W OTH RESP MANIFEST (3) Congestive heart disease Assessment/Plan: echo normal LVEF Code(s): I50.9 - HEART FAILURE, UNSPECIFIED (4) Coronary artery disease Assessment/Plan: asa,lipitor and BB iv BB prn if cannot take oral meds bc he is tired and sleepy Code(s): I25.10 - ATHSCL HEART DISEASE OF [place] CORONARY ARTERY W/O ANG PCTRS (5) Leukocytosis Assessment/Plan: iv rocephin blood cultures pending RUQ sono shows contracted GB with multiple gall stones Code(s): D72.829 - ELEVATED WHITE BLOOD CELL COUNT, UNSPECIFIED (6) Elevated troponin Assessment/Plan: trend troponins cardio on board echo done BB ,statin and aspirn Code(s): R74.8 - ABNORMAL LEVELS OF OTHER SERUM ENZYMES Assessment/Plan avoid benzodiazepines
[2017-09-11] MEDS: ACETAMINOPHEN 325 MG TABLET (FP) PO PRN (14:15)
--- NOTE | 2017-09-11 19:18 | PN ---
Progress Note, Physician History of Present Illness: Confused No acute distress Temp spike noted WBC elevated - Current Medication List Current Medications: Active Medications Acetaminophen (Tylenol -) 650 mg PO Q6H PRN PRN Reason: PAIN OR FEVER Last Admin: 09/11/17 14:15 Dose: 650 mg Amlodipine Besylate (Norvasc -) 2.5 mg PO DAILY [facility] Last Admin: 09/11/17 10:53 Dose: Not Given Aspirin (Ecotrin -) 81 mg PO DAILY [facility] Last Admin: 09/11/17 10:53 Dose: Not Given Atorvastatin Calcium (Lipitor -) 20 mg PO HS [facility] Clopidogrel Bisulfate (Plavix -) 75 mg PO DAILY [facility] Last Admin: 09/11/17 10:53 Dose: Not Given Digoxin (Lanoxin -) 0.125 mg PO DAILY [facility] Last Admin: 09/11/17 10:53 Dose: Not Given CEFTRIAXONE 1 G/50 ML PREMIX (Ceftriaxone 1 Gm-D5w Bag) 50 mls @ 100 mls/hr IVPB DAILY [facility] Last Admin: 09/11/17 10:48 Dose: 100 mls/hr Sodium Chloride (Normal Saline -) 1,000 mls @ 75 mls/hr IV ASDIR [facility] Last Admin: 09/11/17 06:59 Dose: 75 mls/hr Insulin Aspart (Novolog Vial Sliding Scale -) 1 vial SQ TIDAC [facility] PRN Reason: Protocol Last Admin: 09/11/17 17:02 Dose: Not Given Isosorbide Mononitrate (Imdur -) 30 mg PO DAILY [facility] Last Admin: 09/11/17 10:53 Dose: Not Given Metoprolol Succinate (Toprol Xl -) 25 mg PO DAILY [facility] Last Admin: 09/11/17 10:53 Dose: Not Given Metoprolol Tartrate (Lopressor Injection -) 2.5 mg IVPUSH Q6H-IV [facility] Last Admin: 09/11/17 14:45 Dose: 2.5 mg Olanzapine (Zyprexa -) 5 mg PO HS [facility] Oseltamivir Phosphate (Tamiflu -) 75 mg PO BID [facility] Stop: 09/15/17 09:59 Last Admin: 09/11/17 10:53 Dose: Not Given - Objective Vital Signs: Vital Signs Temperature 98.4 F 09/11/17 18:07 Pulse Rate 78 09/11/17 18:07 Respiratory Rate 18 09/11/17 18:07 Blood Pressure 106/71 09/11/17 18:07 O2 Sat by Pulse Oximetry (%) 97 09/11/17 09:00 Constitutional: Yes: No Distress, Cachectic Eyes: Yes: Conjunctiva Clear Cardiovascular: Yes: Regular Rate and Rhythm, S1, S2 Respiratory: Yes: Rhonchi Gastrointestinal: Yes: Normal Bowel Sounds, Soft Labs: CBC, BMP 09/10/17 06:06 09/10/17 06:06 Assessment/Plan Acute influenza Fever/ leukocytosis OBS Continue Tamiflu/ ceftriaxone Await c/s
[2017-09-11] MEDS: ATORVASTATIN CA 20 MG TABLET (FP) PO SCH (21:29)
[2017-09-11] MEDS: OLANZapine 5 MG TABLET PO SCH (21:29)
[2017-09-11] MEDS ORDERED: LORazepam 2 MG/ML SDV VIAL IVPUSH ONE (23:15)
[2017-09-12] MEDS: METOPROLOL TARTRATE 5 MG/5 ML VIAL IVPUSH SCH ×4 (02:20→21:18)
[2017-09-12] MEDS: INSULIN SLIDING SCALE (NOVOLOG) 1 VIAL SQ SCH ×3 (06:17→18:17)
[2017-09-12] MEDS: amLODIPine BESYLATE 2.5 MG TABLET (FP) PO SCH (11:53)
[2017-09-12] MEDS: metoPROLOL SUCCINATE 25 MG TAB.SR.24H (FP) PO SCH (11:53)
[2017-09-12] MEDS: ASPIRIN COATED 81 MG TABLET.EC PO SCH (11:53)
[2017-09-12] MEDS: DIGOXIN 0.125 MG TABLET (FP) PO SCH (11:53)
[2017-09-12] MEDS: ISOSORBIDE MONONITRATE 30 MG TAB.SR.24H (FP) PO SCH (11:53)
[2017-09-12] MEDS: CLOPIDOGREL BISULFATE 75 MG TABLET (FP) PO SCH (11:53)
[2017-09-12] MEDS: CEFTRIAXONE 1 G/50 ML PREMIX 50 ML IVPB SCH (11:54)
[2017-09-12] MEDS: SODIUM CHLORIDE 1,000 ML IV SCH ×2 (11:54→18:17)
[2017-09-12] MEDS: OSELTAMIVIR PHOSPHATE 75 MG CAPSULE PO SCH ×2 (11:56→21:19)
--- NOTE | 2017-09-12 14:17 | PN ---
Progress Note, Physician - Current Medication List Current Medications: Active Medications Acetaminophen (Tylenol -) 650 mg PO Q6H PRN PRN Reason: PAIN OR FEVER Last Admin: 09/11/17 14:15 Dose: 650 mg Amlodipine Besylate (Norvasc -) 2.5 mg PO DAILY [facility] Last Admin: 09/12/17 11:53 Dose: 2.5 mg Aspirin (Ecotrin -) 81 mg PO DAILY [facility] Last Admin: 09/12/17 11:53 Dose: 81 mg Atorvastatin Calcium (Lipitor -) 20 mg PO HS [facility] Last Admin: 09/11/17 21:29 Dose: 20 mg Clopidogrel Bisulfate (Plavix -) 75 mg PO DAILY [facility] Last Admin: 09/12/17 11:53 Dose: 75 mg Digoxin (Lanoxin -) 0.125 mg PO DAILY [facility] Last Admin: 09/12/17 11:53 Dose: 0.125 mg CEFTRIAXONE 1 G/50 ML PREMIX (Ceftriaxone 1 Gm-D5w Bag) 50 mls @ 100 mls/hr IVPB DAILY [facility] Last Admin: 09/12/17 11:54 Dose: 100 mls/hr Sodium Chloride (Normal Saline -) 1,000 mls @ 75 mls/hr IV ASDIR [facility] Last Admin: 09/12/17 11:54 Dose: 75 mls/hr Insulin Aspart (Novolog Vial Sliding Scale -) 1 vial SQ TIDAC [facility] PRN Reason: Protocol Last Admin: 09/12/17 11:59 Dose: Not Given Isosorbide Mononitrate (Imdur -) 30 mg PO DAILY [facility] Last Admin: 09/12/17 11:53 Dose: 30 mg Metoprolol Succinate (Toprol Xl -) 25 mg PO DAILY [facility] Last Admin: 09/12/17 11:53 Dose: 25 mg Metoprolol Tartrate (Lopressor Injection -) 2.5 mg IVPUSH Q6H-IV [facility] Last Admin: 09/12/17 09:00 Dose: 2.5 mg Olanzapine (Zyprexa -) 5 mg PO HS [facility] Last Admin: 09/11/17 21:29 Dose: 5 mg Oseltamivir Phosphate (Tamiflu -) 75 mg PO BID [facility] Stop: 09/15/17 09:59 Last Admin: 09/12/17 11:56 Dose: 75 mg - Objective Vital Signs: Vital Signs Temperature 98 F 09/12/17 10:00 Pulse Rate 99 H 09/12/17 11:53 Respiratory Rate 20 09/12/17 10:00 Blood Pressure 130/79 09/12/17 10:00 O2 Sat by Pulse Oximetry (%) 96 09/11/17 21:00 Labs: CBC, BMP 09/10/17 06:06 09/10/17 06:06 Problem List - Problems (1) Dementia Code(s): F03.90 - UNSPECIFIED DEMENTIA WITHOUT BEHAVIORAL DISTURBANCE (2) Influenza A Code(s): J10.1 - FLU DUE TO OTH IDENT INFLUENZA VIRUS W OTH RESP MANIFEST (3) Congestive heart disease Code(s): I50.9 - HEART FAILURE, UNSPECIFIED (4) Coronary artery disease Code(s): I25.10 - ATHSCL HEART DISEASE OF [place] CORONARY ARTERY W/O ANG PCTRS (5) Leukocytosis Code(s): D72.829 - ELEVATED WHITE BLOOD CELL COUNT, UNSPECIFIED (6) Elevated troponin Code(s): R74.8 - ABNORMAL LEVELS OF OTHER SERUM ENZYMES
--- NOTE | 2017-09-12 14:23 | PN ---
Progress Note, Physician Chief Complaint: patient is not talking much is sleepy fever spike noted cultures sent out as well on iv abx spoke to grand daughter and explained her detail - Current Medication List Current Medications: Active Medications Acetaminophen (Tylenol -) 650 mg PO Q6H PRN PRN Reason: PAIN OR FEVER Last Admin: 09/11/17 14:15 Dose: 650 mg Amlodipine Besylate (Norvasc -) 2.5 mg PO DAILY [facility] Last Admin: 09/12/17 11:53 Dose: 2.5 mg Aspirin (Ecotrin -) 81 mg PO DAILY [facility] Last Admin: 09/12/17 11:53 Dose: 81 mg Atorvastatin Calcium (Lipitor -) 20 mg PO HS [facility] Last Admin: 09/11/17 21:29 Dose: 20 mg Clopidogrel Bisulfate (Plavix -) 75 mg PO DAILY [facility] Last Admin: 09/12/17 11:53 Dose: 75 mg Digoxin (Lanoxin -) 0.125 mg PO DAILY [facility] Last Admin: 09/12/17 11:53 Dose: 0.125 mg CEFTRIAXONE 1 G/50 ML PREMIX (Ceftriaxone 1 Gm-D5w Bag) 50 mls @ 100 mls/hr IVPB DAILY [facility] Last Admin: 09/12/17 11:54 Dose: 100 mls/hr Sodium Chloride (Normal Saline -) 1,000 mls @ 75 mls/hr IV ASDIR [facility] Last Admin: 09/12/17 11:54 Dose: 75 mls/hr Insulin Aspart (Novolog Vial Sliding Scale -) 1 vial SQ TIDAC [facility] PRN Reason: Protocol Last Admin: 09/12/17 11:59 Dose: Not Given Isosorbide Mononitrate (Imdur -) 30 mg PO DAILY [facility] Last Admin: 09/12/17 11:53 Dose: 30 mg Metoprolol Succinate (Toprol Xl -) 25 mg PO DAILY [facility] Last Admin: 09/12/17 11:53 Dose: 25 mg Metoprolol Tartrate (Lopressor Injection -) 2.5 mg IVPUSH Q6H-IV [facility] Last Admin: 09/12/17 09:00 Dose: 2.5 mg Olanzapine (Zyprexa -) 5 mg PO HS [facility] Last Admin: 09/11/17 21:29 Dose: 5 mg Oseltamivir Phosphate (Tamiflu -) 75 mg PO BID [facility] Stop: 09/15/17 09:59 Last Admin: 01/26/18 11:56 Dose: 75 mg - Objective Vital Signs: Vital Signs Temperature 98 F 09/12/17 10:00 Pulse Rate 99 H 09/12/17 11:53 Respiratory Rate 20 09/12/17 10:00 Blood Pressure 130/79 09/12/17 10:00 O2 Sat by Pulse Oximetry (%) 96 09/11/17 21:00 Constitutional: Yes: Calm Cardiovascular: Yes: Regular Rate and Rhythm, S1, S2 Respiratory: Yes: Diminished Gastrointestinal: Yes: Soft Neurological: Yes: Lethargy (sleepy) Labs: CBC, BMP 09/10/17 06:06 09/10/17 06:06 Problem List - Problems (1) Leukocytosis Assessment/Plan: iv rocephin blood cultures pending RUQ sono shows contracted GB with multiple gall stones] Microbiology 09/11/17 06:15 Urine - Urine Clean Catch Urine Culture - Final NO GROWTH OBTAINED Code(s): D72.829 - ELEVATED WHITE BLOOD CELL COUNT, UNSPECIFIED (2) Dementia Assessment/Plan: seen by psych started on zyprexa Code(s): F03.90 - UNSPECIFIED DEMENTIA WITHOUT BEHAVIORAL DISTURBANCE (3) Influenza A Assessment/Plan: isolation tamiflu Code(s): J10.1 - FLU DUE TO OTH IDENT INFLUENZA VIRUS W OTH RESP MANIFEST (4) Congestive heart disease Assessment/Plan: echo normal LVEF Code(s): I50.9 - HEART FAILURE, UNSPECIFIED (5) Coronary artery disease Assessment/Plan: asa,lipitor and BB iv BB prn if cannot take oral meds bc he is tired and sleepy Code(s): I25.10 - ATHSCL HEART DISEASE OF [place] CORONARY ARTERY W/O ANG PCTRS (6) Elevated troponin Assessment/Plan: trend troponins cardio on board echo done BB ,statin and aspirn Code(s): R74.8 - ABNORMAL LEVELS OF OTHER SERUM ENZYMES (7) Poor fluid intake Assessment/Plan: jennifer rodriguez to see patient ent to examine back of mouth and asess his tongue ivf Code(s): R63.8 - OTHER SYMPTOMS AND SIGNS CONCERNING FOOD AND FLUID INTAKE
--- NOTE | 2017-09-12 16:08 | PN ---
Progress Note, Physician Chief Complaint: Pt opens eyes; talks nonsensically. His is at bedside, and worries his throat may be painful; she says his mouth has remained open much more in hospital than previously. History of Present Illness: Pt is an 87-year-old male (b. 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 Had a low-grade fever for 100.9 this a.m. as per . Able to give some history and only states he has cough with chest pain. Denies sob, body aches, nausea, vomiting, headache, neck pain, abd pain, change to BM or dysuria - Current Medication List Current Medications: Active Medications Acetaminophen (Tylenol -) 650 mg PO Q6H PRN PRN Reason: PAIN OR FEVER Last Admin: 09/11/17 14:15 Dose: 650 mg Amlodipine Besylate (Norvasc -) 2.5 mg PO DAILY [facility] Last Admin: 09/12/17 11:53 Dose: 2.5 mg Aspirin (Ecotrin -) 81 mg PO DAILY [facility] Last Admin: 09/12/17 11:53 Dose: 81 mg Atorvastatin Calcium (Lipitor -) 20 mg PO HS [facility] Last Admin: 09/11/17 21:29 Dose: 20 mg Clopidogrel Bisulfate (Plavix -) 75 mg PO DAILY [facility] Last Admin: 09/12/17 11:53 Dose: 75 mg Digoxin (Lanoxin -) 0.125 mg PO DAILY [facility] Last Admin: 09/12/17 11:53 Dose: 0.125 mg CEFTRIAXONE 1 G/50 ML PREMIX (Ceftriaxone 1 Gm-D5w Bag) 50 mls @ 100 mls/hr IVPB DAILY [facility] Last Admin: 09/12/17 11:54 Dose: 100 mls/hr Sodium Chloride (Normal Saline -) 1,000 mls @ 75 mls/hr IV ASDIR [facility] Last Admin: 09/12/17 11:54 Dose: 75 mls/hr Insulin Aspart (Novolog Vial Sliding Scale -) 1 vial SQ TIDAC [facility] PRN Reason: Protocol Last Admin: 09/12/17 11:59 Dose: Not Given Isosorbide Mononitrate (Imdur -) 30 mg PO DAILY [facility] Last Admin: 09/12/17 11:53 Dose: 30 mg Metoprolol Succinate (Toprol Xl -) 25 mg PO DAILY [facility] Last Admin: 09/12/17 11:53 Dose: 25 mg Metoprolol Tartrate (Lopressor Injection -) 2.5 mg IVPUSH Q6H-IV [facility] Last Admin: 09/12/17 09:00 Dose: 2.5 mg Olanzapine (Zyprexa -) 5 mg PO HS [facility] Last Admin: 09/11/17 21:29 Dose: 5 mg Oseltamivir Phosphate (Tamiflu -) 75 mg PO BID [facility] Stop: 09/15/17 09:59 Last Admin: 09/12/17 11:56 Dose: 75 mg - Objective Vital Signs: Vital Signs Temperature 98 F 09/12/17 10:00 Pulse Rate 93 H 09/12/17 15:26 Respiratory Rate 20 09/12/17 15:26 Blood Pressure 120/70 09/12/17 15:26 O2 Sat by Pulse Oximetry (%) 96 09/11/17 21:00 Constitutional: Yes: Anxious Eyes: Yes: WNL HENT: Yes: WNL Neck: Yes: WNL Cardiovascular: Yes: Regular Rate and Rhythm, S1, S2 (split) Respiratory: Yes: Regular Gastrointestinal: Yes: Soft Genitourinary: Yes: Anuria Musculoskeletal: Yes: Muscle Weakness Extremities: Yes: Cool Edema: No Peripheral Pulses WNL: Yes Integumentary: Yes: WNL Neurological: Yes: Confusion Psychiatric: Yes: Other (dementia) Labs: CBC, BMP 09/10/17 06:06 09/10/17 06:06 Abnormal Lab Results 09/12/17 06:53 CK-MB (CK-2) 5.812 H Troponin I 0.15 H D - ....Imaging Other: Image Reviewed Problem List - Problems (1) Congestive heart disease Assessment/Plan: BNP 8,765 initially. No JVD. ECHO: normal LVEF CXR: no acute pathology. BUN/Cr, electrolytes, daily weight, Is ands Os. Consider starting ACEI (improving renal function; HTN; DM; diastolic CHF). May not require digoxin (normal sinus rhythm; ?no hx AF; systolic LVEF is normal ). If need to continue, keep level 0.5-1.0 (presently 0.7). Unless pt has bronchial asthma, may use beta blockers if need for rate control; pt has CAD. Code(s): I50.9 - HEART FAILURE, UNSPECIFIED (2) Coronary artery disease Assessment/Plan: s/p CABG ?1998. s/p coronary angiogram 2016 (f/u results of study: ? coronary stent). TNI 0.17-->0.33-->0.15; CKBM relative index is low. TNI ikely elevated from demand stress from sepsis. No acute STT changes on EKG ECHO: normal LVEF. On ASA and clopidogrel. Code(s): I25.10 - ATHSCL HEART DISEASE OF [place] CORONARY ARTERY W/O ANG PCTRS (3) Influenza A Assessment/Plan: On Tamiflu. f/u with ID. Code(s): J10.1 - FLU DUE TO OTH IDENT INFLUENZA VIRUS W OTH RESP MANIFEST (4) Sepsis Assessment/Plan: Finishing course of IV antibiotics. Code(s): A41.9 - SEPSIS, UNSPECIFIED ORGANISM (5) Renal insufficiency Assessment/Plan: improving renal values. F/u Is and Os, BUn/Cr. Code(s): N28.9 - DISORDER OF KIDNEY AND URETER, UNSPECIFIED (6) Leukocytosis Code(s): D72.829 - ELEVATED WHITE BLOOD CELL COUNT, UNSPECIFIED (7) Hypercholesteremia Assessment/Plan: on atorvastatin; increased to 20 mg daily (LDL 92 mg/dL). Code(s): E78.00 - PURE HYPERCHOLESTEROLEMIA, UNSPECIFIED (8) Dementia Code(s): F03.90 - UNSPECIFIED DEMENTIA WITHOUT BEHAVIORAL DISTURBANCE
--- NOTE | 2017-09-12 17:22 | PN ---
Progress Note (short form) - Note Progress Note: remains confused but alert Vital Signs Period Temp Pulse Resp BP Sys/Moise Pulse Ox Last 24 Hr 98 F-98.5 F 78-99 18-20 106-145/68-85 96 cor-rrr lungs decreased bases at bases abd soft,nt ext no edema CBC, BMP 09/10/17 06:06 09/10/17 06:06 Microbiology 09/11/17 16:00 Blood - Peripheral Venous Blood Culture - Preliminary NO GROWTH OBTAINED AFTER 24 HOURS, INCUBATION TO CONTINUE FOR 4 DAYS. 09/11/17 16:00 Blood - Peripheral Venous Blood Culture - Preliminary NO GROWTH OBTAINED AFTER 24 HOURS, INCUBATION TO CONTINUE FOR 4 DAYS. 09/11/17 06:15 Urine - Urine Clean Catch Urine Culture - Final NO GROWTH OBTAINED 09/10/17 19:45 Blood - Peripheral Venous Blood Culture - Preliminary NO GROWTH OBTAINED AFTER 24 HOURS, INCUBATION TO CONTINUE FOR 4 DAYS. 09/10/17 19:55 Blood - Peripheral Venous Blood Culture - Preliminary NO GROWTH OBTAINED AFTER 24 HOURS, INCUBATION TO CONTINUE FOR 4 DAYS. 09/09/17 11:25 Nasopharyngeal Swab Influenza Types A,B Antigen (RUSSELL) - Final 09/09/17 11:25 Nasopharyngeal Swab - Final sonogram-contracted gb with stones a/p influenza a leukocytosis repeat cbc if cultures negative in am consider d/c ceftriaxone Problem List - Problems (1) Influenza A Code(s): J10.1 - FLU DUE TO OTH IDENT INFLUENZA VIRUS W OTH RESP MANIFEST (2) Leukocytosis Code(s): D72.829 - ELEVATED WHITE BLOOD CELL COUNT, UNSPECIFIED (3) Elevated troponin Code(s): R74.8 - ABNORMAL LEVELS OF OTHER SERUM ENZYMES
--- NOTE | 2017-09-12 18:30 | CON.ENT ---
Consult Consult Specialty:: ENT Reason for Consultation:: swelling of tongue - History of Present Illness Chief Complaint: none offered by pt History of Present Illness: 87-year-old male history of lxw-rxmycne-pvcenamiu diabetic, hypertension, dementia per , here with productive cough with pleuritic chest pain and possibly confusion since last night. Had a low-grade fever for 100.9 this a.m. as per . Able to give some history and only states he has cough with chest pain. Denies sob, body aches, nausea, vomiting, headache, neck pain, abd pain, change to BM or dysuria Upon questioning ,she mentions that patient never takes influenza vaccine because he got flu like symptoms when he last took it years ago. consultation requested for swelling of tongue pt unable to offer much history - History Source History Provided By: Medical Record Limitations to Obtaining History: Clinical Condition - Past Medical History [employer]: Yes: Dementia Cardio/Vascular: Yes: CAD, HTN, [place] Psych: Yes: Other - Past Surgical History Past Surgical History: Yes: CABG Additional Surgical History: coronary angiogram 2016; reportedly did not require stent or other PCI - Smoking History Smoking history: Never smoked Have you smoked in the past 12 months: No - Social History Usual Living Arrangement: With Spouse ADL: Family Assistance Home Medications - Allergies Allergies/Adverse Reactions: Allergies Allergy/AdvReac Type Severity Reaction Status Date / Time No Known Allergies Allergy Verified 09/09/17 10:47 - Home Medications Home Medications: Ambulatory Orders Amlodipine Besylate [Norvasc -] 2.5 mg PO DAILY 09/09/17 Clopidogrel Bisulfate [Clopidogrel] 75 mg PO DAILY 09/09/17 Digoxin [Lanoxin -] 0.125 mg PO DAILY 09/09/17 Isosorbide Mononitrate [Imdur -] 30 mg PO DAILY 09/09/17 Metformin HCl 500 mg PO BID 09/09/17 Metoprolol Tartrate 25 mg PO DAILY 09/09/17 Spironolactone 25 mg PO DAILY 09/09/17 Physical Exam-ENT Vital Signs: Vital Signs Temperature 98.9 F 09/12/17 18:11 Pulse Rate 117 H 09/12/17 18:18 Respiratory Rate 20 09/12/17 18:11 Blood Pressure 158/101 09/12/17 18:18 O2 Sat by Pulse Oximetry (%) 96 09/11/17 21:00 Constitutional: Yes: No Distress Head: Yes: WNL Face: Yes: WNL Eyes: Yes: WNL Nose: Yes: WNL Oral/Pharynx: Yes: Other Outer Ear: Yes: WNL Neck: Yes: WNL (lips normal, partial dentures. tongue mildly swollen, dry, mild erythema rigiht, no lesions mobile, thick mucus on palate (hard and soft), uvula unremarkable, oropharyngeal airway normal, voice clear, no stridor or respiratory distress, handling secretions well, no drooling) Imaging - Results Chest X-ray: Report Reviewed, Image Reviewed (no obvious infiltrate) Problem List - Problems (1) Influenza A Assessment/Plan: care as per medical team Code(s): J10.1 - FLU DUE TO OTH IDENT INFLUENZA VIRUS W OTH RESP MANIFEST (2) Mild tongue swelling Assessment/Plan: nonspecific, no lesion, handling secretions, airway is normal, no obstruction oral mucosa is dry, thick saliva on palate continue observation oral care including moisture and fluids as tolerated. Code(s): R22.0 - LOCALIZED SWELLING, MASS AND LUMP, HEAD
[2017-09-12] MEDS: OLANZapine 5 MG TABLET PO SCH (21:19)
[2017-09-12] MEDS: ATORVASTATIN CA 20 MG TABLET (FP) PO SCH (21:19)
[2017-09-13] MEDS: METOPROLOL TARTRATE 5 MG/5 ML VIAL IVPUSH SCH ×4 (02:43→22:04)
[2017-09-13] MEDS: INSULIN SLIDING SCALE (NOVOLOG) 1 VIAL SQ SCH ×3 (06:06→16:44)
[2017-09-13 07:44] LABS: BASO % 0.1 % (0-2.0); EOS % 0.1 % (0-4.5); HEMATOCRIT 39.9 % (35.4-49); HEMOGLOBIN 13.1 GM/dL (11.7-16.9); LYMPH % 8.2 % (8-40); MCHC 32.8 g/dl (32.0-35.9); MEAN CELL VOLUME 91.2 fl (80-96); MEAN PLT VOLUME 8.2 fl (7.5-11.1); MONO % 7.9 % (3.8-10.2); NEUT % 83.7 % (42.8-82.8); PLATELET COUNT 247 K/MM3 (134-434); RBC 4.38 M/mm3 (4.00-5.60); RDW 13.8 % (11.9-15.9); WHITE BLOOD COUNT 13.3 K/mm3 (4.0-10.0)
[2017-09-13 08:19] LABS: ALBUMIN 2.6 g/dl (3.4-5.0); ANION GAP 11 (8-16); BLOOD UREA NITROGEN 22 mg/dL (7-18); CALCIUM 8.1 mg/dL (8.5-10.1); CHLORIDE 107 mmol/L (98-107); CO2 24 mmol/L (21-32); GLUCOSE,RANDOM 132 mg/dL (74-106); POTASSIUM 3.5 mmol/L (3.5-5.1); SODIUM 142 mmol/L (136-145)
[2017-09-13 08:23] LABS: ALK PHOS 120 U/L (45-117); BILIRUBIN,TOTAL 1.4 mg/dL (0.2-1.0); CREATININE 0.8 mg/dL (0.7-1.3); SGOT/AST 35 U/L (15-37); SGPT/ALT 23 U/L (12-78); TOT PROT 5.9 g/dl (6.4-8.2)
[2017-09-13] MEDS: amLODIPine BESYLATE 2.5 MG TABLET (FP) PO SCH (08:59)
[2017-09-13] MEDS: metoPROLOL SUCCINATE 25 MG TAB.SR.24H (FP) PO SCH (08:59)
[2017-09-13] MEDS: CLOPIDOGREL BISULFATE 75 MG TABLET (FP) PO SCH (08:59)
[2017-09-13] MEDS: ISOSORBIDE MONONITRATE 30 MG TAB.SR.24H (FP) PO SCH (08:59)
[2017-09-13] MEDS: ASPIRIN COATED 81 MG TABLET.EC PO SCH (08:59)
[2017-09-13] MEDS: DIGOXIN 0.125 MG TABLET (FP) PO SCH (08:59)
[2017-09-13] MEDS: CEFTRIAXONE 1 G/50 ML PREMIX 50 ML IVPB SCH (08:59)
[2017-09-13] MEDS: OSELTAMIVIR PHOSPHATE 75 MG CAPSULE PO SCH ×2 (08:59→21:50)
--- NOTE | 2017-09-13 10:00 | PN ---
Progress Note, Physician - Current Medication List Current Medications: Active Medications Acetaminophen (Tylenol -) 650 mg PO Q6H PRN PRN Reason: PAIN OR FEVER Last Admin: 09/11/17 14:15 Dose: 650 mg Amlodipine Besylate (Norvasc -) 2.5 mg PO DAILY [facility] Last Admin: 09/13/17 08:59 Dose: 2.5 mg Aspirin (Ecotrin -) 81 mg PO DAILY [facility] Last Admin: 09/13/17 08:59 Dose: 81 mg Atorvastatin Calcium (Lipitor -) 20 mg PO HS [facility] Last Admin: 09/12/17 21:19 Dose: 20 mg Clopidogrel Bisulfate (Plavix -) 75 mg PO DAILY [facility] Last Admin: 09/13/17 08:59 Dose: 75 mg Digoxin (Lanoxin -) 0.125 mg PO DAILY [facility] Last Admin: 09/13/17 08:59 Dose: 0.125 mg CEFTRIAXONE 1 G/50 ML PREMIX (Ceftriaxone 1 Gm-D5w Bag) 50 mls @ 100 mls/hr IVPB DAILY [facility] Last Admin: 09/13/17 08:59 Dose: 100 mls/hr Sodium Chloride (Normal Saline -) 1,000 mls @ 75 mls/hr IV ASDIR [facility] Last Admin: 09/12/17 18:17 Dose: Not Given Insulin Aspart (Novolog Vial Sliding Scale -) 1 vial SQ TIDAC [facility] PRN Reason: Protocol Last Admin: 09/13/17 06:06 Dose: Not Given Isosorbide Mononitrate (Imdur -) 30 mg PO DAILY [facility] Last Admin: 09/13/17 08:59 Dose: 30 mg Metoprolol Succinate (Toprol Xl -) 25 mg PO DAILY [facility] Last Admin: 09/13/17 08:59 Dose: 25 mg Metoprolol Tartrate (Lopressor Injection -) 2.5 mg IVPUSH Q6H-IV [facility] Last Admin: 09/13/17 08:58 Dose: Not Given Olanzapine (Zyprexa -) 5 mg PO HS [facility] Last Admin: 09/12/17 21:19 Dose: 5 mg Oseltamivir Phosphate (Tamiflu -) 75 mg PO BID [facility] Stop: 09/15/17 09:59 Last Admin: 09/13/17 08:59 Dose: 75 mg - Objective Vital Signs: Vital Signs Temperature 97.7 F 09/13/17 05:27 Pulse Rate 102 H 01/27/18 08:59 Respiratory Rate 20 09/13/17 05:27 Blood Pressure 134/72 09/13/17 05:27 O2 Sat by Pulse Oximetry (%) 96 09/12/17 21:00 Labs: CBC, BMP 09/13/17 06:00 09/13/17 06:00 Assessment/Plan - Problems (1) Leukocytosis Assessment/Plan: improving iv rocephin blood cultures pending RUQ sono shows contracted GB with multiple gall stones] Microbiology 09/11/17 06:15 Urine - Urine Clean Catch Urine Culture - Final NO GROWTH OBTAINED Code(s): D72.829 - ELEVATED WHITE BLOOD CELL COUNT, UNSPECIFIED (2) Dementia Assessment/Plan: seen by psych started on zyprexa Code(s): F03.90 - UNSPECIFIED DEMENTIA WITHOUT BEHAVIORAL DISTURBANCE (3) Influenza A Assessment/Plan: isolation tamiflu Code(s): J10.1 - FLU DUE TO OTH IDENT INFLUENZA VIRUS W OTH RESP MANIFEST (4) Congestive heart disease Assessment/Plan: echo normal LVEF Code(s): I50.9 - HEART FAILURE, UNSPECIFIED (5) Coronary artery disease Assessment/Plan: asa,lipitor and BB iv BB prn if cannot take oral meds bc he is tired and sleepy Code(s): I25.10 - ATHSCL HEART DISEASE OF [place] CORONARY ARTERY W/O ANG PCTRS (6) Elevated troponin Assessment/Plan: trend troponins cardio on board echo done BB ,statin and aspirn Code(s): R74.8 - ABNORMAL LEVELS OF OTHER SERUM ENZYMES (7) Poor fluid intake Assessment/Plan: jennifer rodriguez to see patient ent to examine back of mouth and asess his tongue ivf Code(s): R63.8 - OTHER SYMPTOMS AND SIGNS CONCERNING FOOD AND FLUID INTAKE
--- NOTE | 2017-09-13 10:52 | PN ---
Progress Note, Physician History of Present Illness: seen and examined today in nad. awake and alert. no new complaints. - Current Medication List Current Medications: Active Medications Acetaminophen (Tylenol -) 650 mg PO Q6H PRN PRN Reason: PAIN OR FEVER Last Admin: 09/11/17 14:15 Dose: 650 mg Amlodipine Besylate (Norvasc -) 2.5 mg PO DAILY [facility] Last Admin: 09/13/17 08:59 Dose: 2.5 mg Aspirin (Ecotrin -) 81 mg PO DAILY [facility] Last Admin: 09/13/17 08:59 Dose: 81 mg Atorvastatin Calcium (Lipitor -) 20 mg PO HS [facility] Last Admin: 09/12/17 21:19 Dose: 20 mg Clopidogrel Bisulfate (Plavix -) 75 mg PO DAILY [facility] Last Admin: 09/13/17 08:59 Dose: 75 mg Digoxin (Lanoxin -) 0.125 mg PO DAILY [facility] Last Admin: 09/13/17 08:59 Dose: 0.125 mg CEFTRIAXONE 1 G/50 ML PREMIX (Ceftriaxone 1 Gm-D5w Bag) 50 mls @ 100 mls/hr IVPB DAILY [facility] Last Admin: 09/13/17 08:59 Dose: 100 mls/hr Sodium Chloride (Normal Saline -) 1,000 mls @ 75 mls/hr IV ASDIR [facility] Last Admin: 09/12/17 18:17 Dose: Not Given Insulin Aspart (Novolog Vial Sliding Scale -) 1 vial SQ TIDAC [facility] PRN Reason: Protocol Last Admin: 09/13/17 06:06 Dose: Not Given Isosorbide Mononitrate (Imdur -) 30 mg PO DAILY [facility] Last Admin: 09/13/17 08:59 Dose: 30 mg Metoprolol Succinate (Toprol Xl -) 25 mg PO DAILY [facility] Last Admin: 09/13/17 08:59 Dose: 25 mg Metoprolol Tartrate (Lopressor Injection -) 2.5 mg IVPUSH Q6H-IV [facility] Last Admin: 09/13/17 08:58 Dose: Not Given Olanzapine (Zyprexa -) 5 mg PO HS [facility] Last Admin: 09/12/17 21:19 Dose: 5 mg Oseltamivir Phosphate (Tamiflu -) 75 mg PO BID [facility] Stop: 09/15/17 09:59 Last Admin: 09/13/17 08:59 Dose: 75 mg - Objective Vital Signs: Vital Signs Temperature 97.7 F 09/13/17 05:27 Pulse Rate 102 H 09/13/17 08:59 Respiratory Rate 20 09/13/17 05:27 Blood Pressure 134/72 09/13/17 05:27 O2 Sat by Pulse Oximetry (%) 96 09/12/17 21:00 Constitutional: Yes: No Distress, Calm Eyes: Yes: Conjunctiva Clear, EOM Intact, PERRL HENT: Yes: Atraumatic, Normocephalic Neck: Yes: Supple, Trachea Midline Cardiovascular: Yes: Pulse Irregular, S1, S2. No: Regular Rate and Rhythm, Bradycardia, Tachycardia, Bruit, JVD, Gallop, Murmur, Rub, S3, S4, Varicosities Respiratory: Yes: Regular, Diminished. No: Rales, Rhonchi, Wheezes Gastrointestinal: Yes: Normal Bowel Sounds, Soft. No: Distention, Tenderness Edema: No Peripheral Pulses WNL: Yes Peripheral Pulses: Left Doralis Pedis: 2+, Right Dorsalis Pedis: 2+ Neurological: Yes: Alert, Oriented Psychiatric: Yes: Alert, Oriented Labs: CBC, BMP 09/13/17 06:00 09/13/17 06:00 - ....Imaging Chest X-ray: Report Reviewed, Image Reviewed EKG: Report Reviewed, Image Reviewed Other: Report Reviewed, Image Reviewed (tele-nsr 1st AVB, PVCs, Possible Pafib) Assessment/Plan Influenza -cont tamiflu Arrhythmia-possible Pafib on tele, VS NSR with 1st deg AVB and APCs -cont tele monitoring to further clarify -hold off on full AC for now, Unclear if AFib or not and pt is on ASA and Plavix , advanced age, dementia/confusion thus significant bleeding risk Congestive heart disease -clinically euvolemic/intravascularly depleted ECHO: normal LVEF BUN/Cr, electrolytes, daily weight, Is ands Os. Hold off on diuresis at this point Consider starting ACEI (improving renal function; HTN; DM; diastolic CHF). May not require digoxin (normal sinus rhythm; ?no hx AF; systolic LVEF is normal ). If need to continue, keep level 0.5-1.0 (presently 0.7). Cont metoprolol Coronary artery disease s/p CABG ?1998. s/p coronary angiogram 2016 (f/u results of study: ? coronary stent). TNI 0.17-->0.33-->0.15; CKBM relative index is low. TNI ikely elevated from demand stress from sepsis. No acute STT changes on EKG ECHO: normal LVEF. On ASA and clopidogrel.
--- NOTE | 2017-09-13 12:03 | EKG ---
Test Reason : Blood Pressure : / mmHG Vent. Rate : 097 BPM Atrial Rate : 097 BPM P-R Int : 178 ms QRS Dur : 150 ms QT Int : 408 ms P-R-T Axes : 060 100 -74 degrees QTc Int : 518 ms SINUS RHYTHM WITH PREMATURE ATRIAL COMPLEXES WITH ABERRANT CONDUCTION RIGHTWARD AXIS NON-SPECIFIC INTRA-VENTRICULAR CONDUCTION BLOCK ABNORMAL ECG Confirmed by MD GILDARDO, PILAR ([id number]) on 09/13/2017 12:03:23 PM Referred By: Silva JIMÉNEZ Confirmed By:PILAR EWING MD
--- NOTE | 2017-09-13 14:49 | PN ---
Progress Note, Physician History of Present Illness: Confused No acute distress Low grade temps WBC improved - Current Medication List Current Medications: Active Medications Acetaminophen (Tylenol -) 650 mg PO Q6H PRN PRN Reason: PAIN OR FEVER Last Admin: 09/11/17 14:15 Dose: 650 mg Amlodipine Besylate (Norvasc -) 2.5 mg PO DAILY [facility] Last Admin: 09/13/17 08:59 Dose: 2.5 mg Aspirin (Ecotrin -) 81 mg PO DAILY [facility] Last Admin: 09/13/17 08:59 Dose: 81 mg Atorvastatin Calcium (Lipitor -) 20 mg PO HS [facility] Last Admin: 09/12/17 21:19 Dose: 20 mg Clopidogrel Bisulfate (Plavix -) 75 mg PO DAILY [facility] Last Admin: 09/13/17 08:59 Dose: 75 mg Digoxin (Lanoxin -) 0.125 mg PO DAILY [facility] Last Admin: 09/13/17 08:59 Dose: 0.125 mg CEFTRIAXONE 1 G/50 ML PREMIX (Ceftriaxone 1 Gm-D5w Bag) 50 mls @ 100 mls/hr IVPB DAILY [facility] Last Admin: 09/13/17 08:59 Dose: 100 mls/hr Sodium Chloride (Normal Saline -) 1,000 mls @ 75 mls/hr IV ASDIR [facility] Last Admin: 09/12/17 18:17 Dose: Not Given Insulin Aspart (Novolog Vial Sliding Scale -) 1 vial SQ TIDAC [facility] PRN Reason: Protocol Last Admin: 09/13/17 11:40 Dose: Not Given Isosorbide Mononitrate (Imdur -) 30 mg PO DAILY [facility] Last Admin: 09/13/17 08:59 Dose: 30 mg Metoprolol Succinate (Toprol Xl -) 25 mg PO DAILY [facility] Last Admin: 09/13/17 08:59 Dose: 25 mg Metoprolol Tartrate (Lopressor Injection -) 2.5 mg IVPUSH Q6H-IV [facility] Last Admin: 09/13/17 14:13 Dose: Not Given Olanzapine (Zyprexa -) 5 mg PO HS [facility] Last Admin: 09/12/17 21:19 Dose: 5 mg Oseltamivir Phosphate (Tamiflu -) 75 mg PO BID [facility] Stop: 09/15/17 09:59 Last Admin: 09/13/17 08:59 Dose: 75 mg - Objective Vital Signs: Vital Signs Temperature 99.8 F H 09/13/17 13:00 Pulse Rate 102 H 09/13/17 13:00 Respiratory Rate 18 09/13/17 13:00 Blood Pressure 108/71 09/13/17 13:00 O2 Sat by Pulse Oximetry (%) 94 L 09/13/17 09:00 Constitutional: Yes: No Distress Cardiovascular: Yes: Regular Rate and Rhythm, S1, S2 Respiratory: Yes: Diminished Gastrointestinal: Yes: Normal Bowel Sounds, Soft Edema: No Labs: CBC, BMP 09/13/17 06:00 09/13/17 06:00 Assessment/Plan Acute influenza Fever/ leukocytosis - improved OBS Continue Tamiflu/ ceftriaxone
[2017-09-13] MEDS: SODIUM CHLORIDE 1,000 ML IV SCH (18:00)
[2017-09-13] MEDS ORDERED: LORazepam 2 MG/ML SDV VIAL IVPUSH ONE (21:31)
[2017-09-13] MEDS ORDERED: PT OWN MED DRAWER 7, Y5N ONE (21:48)
[2017-09-13] MEDS: OLANZapine 5 MG TABLET PO SCH (21:50)
[2017-09-13] MEDS: ATORVASTATIN CA 20 MG TABLET (FP) PO SCH (21:50)
[2017-09-14] MEDS: SODIUM CHLORIDE 1,000 ML IV SCH ×2 (03:34→22:24)
[2017-09-14] MEDS: METOPROLOL TARTRATE 5 MG/5 ML VIAL IVPUSH SCH ×4 (03:36→22:23)
[2017-09-14] MEDS: INSULIN SLIDING SCALE (NOVOLOG) 1 VIAL SQ SCH ×3 (06:19→16:39)
[2017-09-14] MEDS: CEFTRIAXONE 1 G/50 ML PREMIX 50 ML IVPB SCH (09:43)
--- NOTE | 2017-09-14 10:16 | PN ---
Progress Note, Physician History of Present Illness: seen and examined today in nad. confused in barbara vest. no reported new complaints. - Current Medication List Current Medications: Active Medications Acetaminophen (Tylenol -) 650 mg PO Q6H PRN PRN Reason: PAIN OR FEVER Last Admin: 09/11/17 14:15 Dose: 650 mg Amlodipine Besylate (Norvasc -) 2.5 mg PO DAILY [facility] Last Admin: 09/13/17 08:59 Dose: 2.5 mg Aspirin (Ecotrin -) 81 mg PO DAILY [facility] Last Admin: 09/13/17 08:59 Dose: 81 mg Atorvastatin Calcium (Lipitor -) 20 mg PO HS [facility] Last Admin: 09/13/17 21:50 Dose: 20 mg Clopidogrel Bisulfate (Plavix -) 75 mg PO DAILY [facility] Last Admin: 09/13/17 08:59 Dose: 75 mg Digoxin (Lanoxin -) 0.125 mg PO DAILY [facility] Last Admin: 09/13/17 08:59 Dose: 0.125 mg CEFTRIAXONE 1 G/50 ML PREMIX (Ceftriaxone 1 Gm-D5w Bag) 50 mls @ 100 mls/hr IVPB DAILY [facility] Last Admin: 09/14/17 09:43 Dose: 100 mls/hr Sodium Chloride (Normal Saline -) 1,000 mls @ 75 mls/hr IV ASDIR [facility] Last Admin: 09/14/17 03:34 Dose: 75 mls/hr Insulin Aspart (Novolog Vial Sliding Scale -) 1 vial SQ TIDAC [facility] PRN Reason: Protocol Last Admin: 09/14/17 06:19 Dose: Not Given Isosorbide Mononitrate (Imdur -) 30 mg PO DAILY [facility] Last Admin: 09/13/17 08:59 Dose: 30 mg Metoprolol Succinate (Toprol Xl -) 25 mg PO DAILY [facility] Last Admin: 09/13/17 08:59 Dose: 25 mg Metoprolol Tartrate (Lopressor Injection -) 2.5 mg IVPUSH Q6H-IV [facility] Last Admin: 09/14/17 09:43 Dose: 2.5 mg Olanzapine (Zyprexa -) 5 mg PO HS [facility] Last Admin: 09/13/17 21:50 Dose: 5 mg Oseltamivir Phosphate (Tamiflu -) 75 mg PO BID [facility] Stop: 09/15/17 09:59 Last Admin: 09/13/17 21:50 Dose: 75 mg - Objective Vital Signs: Vital Signs Temperature 98.9 F 09/14/17 06:22 Pulse Rate 99 H 09/14/17 09:43 Respiratory Rate 16 09/14/17 06:22 Blood Pressure 128/69 09/14/17 09:43 O2 Sat by Pulse Oximetry (%) 88 L 09/13/17 21:00 Constitutional: Yes: No Distress, Calm Eyes: Yes: Conjunctiva Clear HENT: Yes: Atraumatic, Normocephalic Cardiovascular: Yes: Pulse Irregular, S1, S2. No: Bradycardia, Tachycardia, Bruit, JVD, Gallop, Murmur, Rub, S3, S4, Varicosities Respiratory: Yes: Regular. No: Diminished, Rales, Rhonchi, Wheezes Gastrointestinal: Yes: Normal Bowel Sounds, Soft. No: Distention, Tenderness Edema: No Peripheral Pulses WNL: Yes Neurological: Yes: Alert Psychiatric: Yes: Alert Labs: CBC, BMP 09/13/17 06:00 09/13/17 06:00 - ....Imaging Chest X-ray: Report Reviewed, Image Reviewed EKG: Report Reviewed, Image Reviewed Other: Report Reviewed, Image Reviewed (tele-NSR, possible PAFib, PVCs, NSVT 6 beats) Assessment/Plan Influenza -cont tamiflu Arrhythmia-possible Pafib on tele, VS NSR with 1st deg AVB and APCs -EKG yesterday showed NSR -tele again appears to be Pafib with controlled HR -will repeat EKG today and daily to confirm -cont tele monitoring -hold off on full AC for now, Uncertain if actually PAFib or not and pt is on ASA and Plavix, advanced age, dementia/confusion thus significant bleeding risk Congestive heart disease -clinically euvolemic/intravascularly depleted ECHO: normal LVEF BUN/Cr, electrolytes, daily weight, Is ands Os. Hold off on diuresis at this point Consider starting ACEI (improving renal function; HTN; DM; diastolic CHF). May not require digoxin (normal sinus rhythm; ?no hx AF; systolic LVEF is normal ). If need to continue, keep level 0.5-1.0 (presently 0.7). Cont metoprolol Coronary artery disease s/p CABG ?1998. s/p coronary angiogram 2016 (f/u results of study: ? coronary stent). TNI 0.17-->0.33-->0.15; CKBM relative index is low. TNI ikely elevated from demand stress from sepsis. No acute STT changes on EKG ECHO: normal LVEF. On ASA and clopidogrel.
--- NOTE | 2017-09-14 10:19 | PN ---
Progress Note, Physician - Current Medication List Current Medications: Active Medications Acetaminophen (Tylenol -) 650 mg PO Q6H PRN PRN Reason: PAIN OR FEVER Last Admin: 09/11/17 14:15 Dose: 650 mg Amlodipine Besylate (Norvasc -) 2.5 mg PO DAILY [facility] Last Admin: 09/13/17 08:59 Dose: 2.5 mg Aspirin (Ecotrin -) 81 mg PO DAILY [facility] Last Admin: 09/13/17 08:59 Dose: 81 mg Atorvastatin Calcium (Lipitor -) 20 mg PO HS [facility] Last Admin: 09/13/17 21:50 Dose: 20 mg Clopidogrel Bisulfate (Plavix -) 75 mg PO DAILY [facility] Last Admin: 09/13/17 08:59 Dose: 75 mg Digoxin (Lanoxin -) 0.125 mg PO DAILY [facility] Last Admin: 09/13/17 08:59 Dose: 0.125 mg CEFTRIAXONE 1 G/50 ML PREMIX (Ceftriaxone 1 Gm-D5w Bag) 50 mls @ 100 mls/hr IVPB DAILY [facility] Last Admin: 09/14/17 09:43 Dose: 100 mls/hr Sodium Chloride (Normal Saline -) 1,000 mls @ 75 mls/hr IV ASDIR [facility] Last Admin: 09/14/17 03:34 Dose: 75 mls/hr Insulin Aspart (Novolog Vial Sliding Scale -) 1 vial SQ TIDAC [facility] PRN Reason: Protocol Last Admin: 09/14/17 06:19 Dose: Not Given Isosorbide Mononitrate (Imdur -) 30 mg PO DAILY [facility] Last Admin: 09/13/17 08:59 Dose: 30 mg Metoprolol Succinate (Toprol Xl -) 25 mg PO DAILY [facility] Last Admin: 09/13/17 08:59 Dose: 25 mg Metoprolol Tartrate (Lopressor Injection -) 2.5 mg IVPUSH Q6H-IV [facility] Last Admin: 09/14/17 09:43 Dose: 2.5 mg Olanzapine (Zyprexa -) 5 mg PO HS [facility] Last Admin: 09/13/17 21:50 Dose: 5 mg Oseltamivir Phosphate (Tamiflu -) 75 mg PO BID [facility] Stop: 09/15/17 09:59 Last Admin: 09/13/17 21:50 Dose: 75 mg - Objective Vital Signs: Vital Signs Temperature 98.9 F 09/14/17 06:22 Pulse Rate 99 H 09/14/17 09:43 Respiratory Rate 16 09/14/17 06:22 Blood Pressure 128/69 09/14/17 09:43 O2 Sat by Pulse Oximetry (%) 88 L 09/13/17 21:00 Cardiovascular: Yes: S1, S2 Respiratory: Yes: Regular, CTA Bilaterally Gastrointestinal: Yes: Normal Bowel Sounds, Soft Neurological: Yes: Lethargy, Weakness Labs: CBC, BMP 09/13/17 06:00 09/13/17 06:00 Assessment/Plan - Problems (1) Leukocytosis Assessment/Plan: improving iv rocephin blood cultures pending RUQ sono shows contracted GB with multiple gall stones] Microbiology 09/11/17 06:15 Urine - Urine Clean Catch Urine Culture - Final NO GROWTH OBTAINED Code(s): D72.829 - ELEVATED WHITE BLOOD CELL COUNT, UNSPECIFIED (2) Dementia Assessment/Plan: seen by psych started on zyprexa ct of head nad Code(s): F03.90 - UNSPECIFIED DEMENTIA WITHOUT BEHAVIORAL DISTURBANCE (3) Influenza A Assessment/Plan: isolation tamiflu Code(s): J10.1 - FLU DUE TO OTH IDENT INFLUENZA VIRUS W OTH RESP MANIFEST (4) Congestive heart disease Assessment/Plan: echo normal LVEF Code(s): I50.9 - HEART FAILURE, UNSPECIFIED (5) Coronary artery disease Assessment/Plan: asa,lipitor and BB iv BB prn if cannot take oral meds bc he is tired and sleepy Code(s): I25.10 - ATHSCL HEART DISEASE OF [place] CORONARY ARTERY W/O ANG PCTRS (6) Elevated troponin Assessment/Plan: trend troponins cardio on board echo done BB ,statin and aspirn Code(s): R74.8 - ABNORMAL LEVELS OF OTHER SERUM ENZYMES (7) Poor fluid intake Assessment/Plan: jennifer rodriguez to see patient ent to examine back of mouth and asess his tongue ivf Code(s): R63.8 - OTHER SYMPTOMS AND SIGNS CONCERNING FOOD AND FLUID INTAKE
[2017-09-14] MEDS: metoPROLOL SUCCINATE 25 MG TAB.SR.24H (FP) PO SCH (10:32)
[2017-09-14] MEDS: ASPIRIN COATED 81 MG TABLET.EC PO SCH (11:00)
[2017-09-14] MEDS: DIGOXIN 0.125 MG TABLET (FP) PO SCH (11:00)
[2017-09-14] MEDS: ISOSORBIDE MONONITRATE 30 MG TAB.SR.24H (FP) PO SCH (11:00)
--- NOTE | 2017-09-14 11:36 | EKG ---
Test Reason : Blood Pressure : / mmHG Vent. Rate : 103 BPM Atrial Rate : 300 BPM P-R Int : 000 ms QRS Dur : 138 ms QT Int : 384 ms P-R-T Axes : -85 102 -67 degrees QTc Int : 503 ms NORMAL SINUS RHYTHM WITH 1ST DEGREE A-V BLOCK RIGHTWARD AXIS NON-SPECIFIC INTRA-VENTRICULAR CONDUCTION BLOCK T WAVE ABNORMALITY, CONSIDER INFERIOR ISCHEMIA ABNORMAL ECG Confirmed by MD GILDARDO, PILAR ([id number]) on 09/14/2017 11:35:47 AM Referred By: Confirmed By:PILAR EWING MD
[2017-09-14] MEDS: CLOPIDOGREL BISULFATE 75 MG TABLET (FP) PO SCH (11:59)
[2017-09-14] MEDS: amLODIPine BESYLATE 2.5 MG TABLET (FP) PO SCH (11:59)
[2017-09-14] MEDS: OSELTAMIVIR PHOSPHATE 75 MG CAPSULE PO SCH ×2 (12:00→22:25)
[2017-09-14] MEDS ORDERED: PT OWN MED DRAWER 7, Y5N ONE (22:07)
[2017-09-14] MEDS: OLANZapine 5 MG TABLET PO SCH (22:25)
[2017-09-14] MEDS: ATORVASTATIN CA 20 MG TABLET (FP) PO SCH (22:25)
[2017-09-15] MEDS: METOPROLOL TARTRATE 5 MG/5 ML VIAL IVPUSH SCH ×4 (02:44→21:22)
[2017-09-15] MEDS: INSULIN SLIDING SCALE (NOVOLOG) 1 VIAL SQ SCH ×3 (07:01→16:24)
[2017-09-15 07:09] LABS: HEMATOCRIT 41.8 % (35.4-49); MCH 30.2 pg (25.7-33.7); MCHC 33.5 g/dl (32.0-35.9); MEAN CELL VOLUME 90.2 fl (80-96); MEAN PLT VOLUME 8.1 fl (7.5-11.1); PLATELET COUNT 347 K/MM3 (134-434); RBC 4.64 M/mm3 (4.00-5.60); RDW 13.8 % (11.9-15.9); WHITE BLOOD COUNT 11.1 K/mm3 (4.0-10.0)
[2017-09-15 07:44] LABS: ALBUMIN 2.6 g/dl (3.4-5.0); ANION GAP 13 (8-16); BILIRUBIN,TOTAL 1.3 mg/dL (0.2-1.0); BLOOD UREA NITROGEN 18 mg/dL (7-18); CALCIUM 8.8 mg/dL (8.5-10.1); CHLORIDE 108 mmol/L (98-107); CO2 24 mmol/L (21-32); CREATININE 0.8 mg/dL (0.7-1.3); GLUCOSE,RANDOM 108 mg/dL (74-106); POTASSIUM 3.3 mmol/L (3.5-5.1); SGOT/AST 41 U/L (15-37); SGPT/ALT 27 U/L (12-78); SODIUM 145 mmol/L (136-145); TOT PROT 6.5 g/dl (6.4-8.2)
[2017-09-15 07:45] LABS: ALK PHOS 121 U/L (45-117)
--- NOTE | 2017-09-15 08:04 | PN ---
Progress Note, Physician - Current Medication List Current Medications: Active Medications Acetaminophen (Tylenol -) 650 mg PO Q6H PRN PRN Reason: PAIN OR FEVER Last Admin: 09/11/17 14:15 Dose: 650 mg Amlodipine Besylate (Norvasc -) 2.5 mg PO DAILY [facility] Last Admin: 09/14/17 11:59 Dose: Not Given Aspirin (Ecotrin -) 81 mg PO DAILY [facility] Last Admin: 09/14/17 11:00 Dose: Not Given Atorvastatin Calcium (Lipitor -) 20 mg PO HS [facility] Last Admin: 09/14/17 22:25 Dose: 20 mg Clopidogrel Bisulfate (Plavix -) 75 mg PO DAILY [facility] Last Admin: 09/14/17 11:59 Dose: Not Given Digoxin (Lanoxin -) 0.125 mg PO DAILY [facility] Last Admin: 09/14/17 11:00 Dose: Not Given CEFTRIAXONE 1 G/50 ML PREMIX (Ceftriaxone 1 Gm-D5w Bag) 50 mls @ 100 mls/hr IVPB DAILY [facility] Last Admin: 09/14/17 09:43 Dose: 100 mls/hr Sodium Chloride (Normal Saline -) 1,000 mls @ 75 mls/hr IV ASDIR [facility] Last Admin: 09/14/17 22:24 Dose: 75 mls/hr Insulin Aspart (Novolog Vial Sliding Scale -) 1 vial SQ TIDAC [facility] PRN Reason: Protocol Last Admin: 09/15/17 07:01 Dose: Not Given Isosorbide Mononitrate (Imdur -) 30 mg PO DAILY [facility] Last Admin: 09/14/17 11:00 Dose: Not Given Metoprolol Succinate (Toprol Xl -) 25 mg PO DAILY [facility] Last Admin: 09/14/17 10:32 Dose: Not Given Metoprolol Tartrate (Lopressor Injection -) 2.5 mg IVPUSH Q6H-IV [facility] Last Admin: 09/15/17 02:44 Dose: 2.5 mg Olanzapine (Zyprexa -) 5 mg PO HS [facility] Last Admin: 09/14/17 22:25 Dose: 5 mg Oseltamivir Phosphate (Tamiflu -) 75 mg PO BID [facility] Stop: 09/15/17 09:59 Last Admin: 09/14/17 22:25 Dose: 75 mg - Objective Vital Signs: Vital Signs Temperature 97.3 F L 09/15/17 06:00 Pulse Rate 93 H 09/15/17 06:00 Respiratory Rate 18 09/15/17 06:00 Blood Pressure 129/80 09/15/17 06:00 O2 Sat by Pulse Oximetry (%) 92 L 09/14/17 21:00 Cardiovascular: Yes: S1, S2 Respiratory: Yes: Regular, CTA Bilaterally Gastrointestinal: Yes: Normal Bowel Sounds, Soft Edema: No Neurological: Yes: Alert, Confusion Labs: CBC, BMP 09/15/17 05:59 Assessment/Plan - Problems (1) Leukocytosis Assessment/Plan: improving iv rocephin blood cultures pending RUQ sono shows contracted GB with multiple gall stones] Microbiology 09/11/17 06:15 Urine - Urine Clean Catch Urine Culture - Final NO GROWTH OBTAINED Code(s): D72.829 - ELEVATED WHITE BLOOD CELL COUNT, UNSPECIFIED (2) Dementia Assessment/Plan: seen by psych started on zyprexa ct of head nad Code(s): F03.90 - UNSPECIFIED DEMENTIA WITHOUT BEHAVIORAL DISTURBANCE (3) Influenza A Assessment/Plan: isolation tamiflu Code(s): J10.1 - FLU DUE TO OTH IDENT INFLUENZA VIRUS W OTH RESP MANIFEST (4) Congestive heart disease Assessment/Plan: echo normal LVEF Code(s): I50.9 - HEART FAILURE, UNSPECIFIED (5) Coronary artery disease Assessment/Plan: asa,lipitor and BB iv BB prn if cannot take oral meds bc he is tired and sleepy Code(s): I25.10 - ATHSCL HEART DISEASE OF [place] CORONARY ARTERY W/O ANG PCTRS (6) Elevated troponin Assessment/Plan: trend troponins cardio on board echo done BB ,statin and aspirn Code(s): R74.8 - ABNORMAL LEVELS OF OTHER SERUM ENZYMES (7) Poor fluid intake Assessment/Plan: jennifer rodriguez to see patient ent noted dc ivf Code(s): R63.8 - OTHER SYMPTOMS AND SIGNS CONCERNING FOOD AND FLUID INTAKE PHYSICAL THERAPY
[2017-09-15 08:56] LABS: ANISOCYTOSIS 0; MACROCYTOSIS 0; PLATELET ESTIMATE NORMAL
[2017-09-15] MEDS: CEFTRIAXONE 1 G/50 ML PREMIX 50 ML IVPB SCH (10:49)
[2017-09-15] MEDS: amLODIPine BESYLATE 2.5 MG TABLET (FP) PO SCH (10:51)
[2017-09-15] MEDS: DIGOXIN 0.125 MG TABLET (FP) PO SCH (10:51)
[2017-09-15] MEDS: POTASSIUM CHLORIDE TABS 20 MEQ TABLET.ER (FP) PO SCH (10:51)
[2017-09-15] MEDS: ISOSORBIDE MONONITRATE 30 MG TAB.SR.24H (FP) PO SCH (10:51)
[2017-09-15] MEDS: ASPIRIN COATED 81 MG TABLET.EC PO SCH (10:52)
[2017-09-15] MEDS: metoPROLOL SUCCINATE 25 MG TAB.SR.24H (FP) PO SCH (10:52)
[2017-09-15] MEDS: CLOPIDOGREL BISULFATE 75 MG TABLET (FP) PO SCH (10:54)
--- NOTE | 2017-09-15 11:54 | PN ---
Progress Note, Physician History of Present Illness: 87-year-old male (b. [place]), with PMhistory of [id number] diabetes, CABG ( reports pt having the procedure ?1998; hx multiple MIs), s/ p coronary angiogram 2016 ([place]; per , was told he might need "a pacemaker"), hypertension, dementia (hx primarily given by ), now presents with productive cough with pleuritic chest pain and possibly confusion since last night. Had a low-grade fever for 100.9 this a.m. as per . Able to give some history and only states he has cough with chest pain. Denies sob, body aches, nausea, vomiting, headache, neck pain, abd pain, change to BM or dysuria - Current Medication List Current Medications: Active Medications Acetaminophen (Tylenol -) 650 mg PO Q6H PRN PRN Reason: PAIN OR FEVER Last Admin: 09/11/17 14:15 Dose: 650 mg Amlodipine Besylate (Norvasc -) 2.5 mg PO DAILY [facility] Last Admin: 09/15/17 10:51 Dose: 2.5 mg Aspirin (Ecotrin -) 81 mg PO DAILY [facility] Last Admin: 09/15/17 10:52 Dose: 81 mg Atorvastatin Calcium (Lipitor -) 20 mg PO HS [facility] Last Admin: 09/14/17 22:25 Dose: 20 mg Clopidogrel Bisulfate (Plavix -) 75 mg PO DAILY [facility] Last Admin: 09/14/17 11:59 Dose: Not Given Digoxin (Lanoxin -) 0.125 mg PO DAILY [facility] Last Admin: 09/15/17 10:51 Dose: 0.125 mg CEFTRIAXONE 1 G/50 ML PREMIX (Ceftriaxone 1 Gm-D5w Bag) 50 mls @ 100 mls/hr IVPB DAILY [facility] Last Admin: 09/15/17 10:49 Dose: 100 mls/hr Insulin Aspart (Novolog Vial Sliding Scale -) 1 vial SQ TIDAC [facility] PRN Reason: Protocol Last Admin: 09/15/17 07:01 Dose: Not Given Isosorbide Mononitrate (Imdur -) 30 mg PO DAILY [facility] Last Admin: 09/15/17 10:51 Dose: 30 mg Metoprolol Succinate (Toprol Xl -) 25 mg PO DAILY [facility] Last Admin: 09/15/17 10:52 Dose: 25 mg Metoprolol Tartrate (Lopressor Injection -) 2.5 mg IVPUSH Q6H-IV [facility] Last Admin: 09/15/17 09:30 Dose: 2.5 mg Olanzapine (Zyprexa -) 5 mg PO HS [facility] Last Admin: 09/14/17 22:25 Dose: 5 mg Potassium Chloride (K-Dur -) 20 meq PO DAILY [facility] Last Admin: 09/15/17 10:51 Dose: 20 meq - Objective Vital Signs: Vital Signs Temperature 98.5 F 09/15/17 10:00 Pulse Rate 10 L 09/15/17 10:51 Respiratory Rate 18 09/15/17 10:00 Blood Pressure 156/79 09/15/17 10:00 O2 Sat by Pulse Oximetry (%) 95 09/15/17 09:00 Eyes: Yes: WNL, Conjunctiva Clear, EOM Intact HENT: Yes: WNL, Atraumatic, Normocephalic Neck: Yes: WNL, Supple, Trachea Midline Cardiovascular: Yes: WNL, Regular Rate and Rhythm Respiratory: Yes: WNL, Regular, CTA Bilaterally Gastrointestinal: Yes: WNL, Normal Bowel Sounds Genitourinary: Yes: WNL Musculoskeletal: Yes: WNL Extremities: Yes: WNL Edema: No Integumentary: Yes: WNL Neurological: Yes: WNL, Alert, Oriented ...Motor Strength: WNL Psychiatric: Yes: WNL Labs: CBC, BMP 09/15/17 05:59 09/15/17 05:59 Assessment/Plan Influenza -cont tamiflu Arrhythmia-possible Pafib on tele, VS NSR with 1st deg AVB and APCs -EKG yesterday showed NSR -tele again appears to be Pafib with controlled HR -will repeat EKG today and daily to confirm -cont tele monitoring -hold off on full AC for now, Uncertain if actually PAFib or not and pt is on ASA and Plavix, advanced age, dementia/confusion thus significant bleeding risk Congestive heart disease -clinically euvolemic/intravascularly depleted ECHO: normal LVEF BUN/Cr, electrolytes, daily weight, Is ands Os. Hold off on diuresis at this point Consider starting ACEI (improving renal function; HTN; DM; diastolic CHF). May not require digoxin (normal sinus rhythm; ?no hx AF; systolic LVEF is normal ). If need to continue, keep level 0.5-1.0 (presently 0.7). Cont metoprolol Coronary artery disease s/p CABG ?1998. s/p coronary angiogram 2016 (f/u results of study: ? coronary stent). TNI 0.17-->0.33-->0.15; CKBM relative index is low. TNI ikely elevated from demand stress from sepsis. No acute STT changes on EKG ECHO: normal LVEF. On ASA and clopidogrel.
--- NOTE | 2017-09-15 14:11 | PN ---
Progress Note (short form) - Note Progress Note: remains confused but alert afebrile wearing a barbara vest ate better today Vital Signs Period Temp Pulse Resp BP Sys/Moise Pulse Ox Last 24 Hr 97.3 F-98.5 F 10-100 120-156/65-85 92-95 cor-rrr lungs clear abd soft,nt ext no edema CBC, BMP 09/15/17 05:59 09/15/17 05:59 Microbiology 09/10/17 19:45 Blood - Peripheral Venous Blood Culture - Preliminary NO GROWTH OBTAINED AFTER 96 HOURS, INCUBATION TO CONTINUE FOR 1 DAYS. 09/10/17 19:55 Blood - Peripheral Venous Blood Culture - Preliminary NO GROWTH OBTAINED AFTER 96 HOURS, INCUBATION TO CONTINUE FOR 1 DAYS. 09/11/17 16:00 Blood - Peripheral Venous Blood Culture - Preliminary NO GROWTH OBTAINED AFTER 72 HOURS, INCUBATION TO CONTINUE FOR 2 DAYS. 09/11/17 16:00 Blood - Peripheral Venous Blood Culture - Preliminary NO GROWTH OBTAINED AFTER 72 HOURS, INCUBATION TO CONTINUE FOR 2 DAYS. 09/11/17 06:15 Urine - Urine Clean Catch Urine Culture - Final NO GROWTH OBTAINED 09/09/17 11:25 Nasopharyngeal Swab Influenza Types A,B Antigen (RUSSELL) - Final 09/09/17 11:25 Nasopharyngeal Swab - Final a/p influenza a- s/p tamiflu leukocytosis resolved positive troponins PAF dementia d/c rocephin Problem List - Problems (1) Influenza A Code(s): J10.1 - FLU DUE TO OTH IDENT INFLUENZA VIRUS W OTH RESP MANIFEST (2) Leukocytosis Code(s): D72.829 - ELEVATED WHITE BLOOD CELL COUNT, UNSPECIFIED (3) Elevated troponin Code(s): R74.8 - ABNORMAL LEVELS OF OTHER SERUM ENZYMES
--- NOTE | 2017-09-15 16:17 | CONSULT ---
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 Cardiovascular: Yes: CAD, HTN, MA Psych: Yes: Other - Past Surgical History Past Surgical History: Yes: CABG - Smoking History Smoking history: Never smoked Have you smoked in the past 12 months: No - Social History ADL: Family Assistance History - Admission Reason For Visit: ELEVATED TROPONIN LEVELS - Hearing Hearing: Normal Speech Evaluation - Communication Primary Language: SERBIAN Communication: Yes: Simple Responses, Language Barrier Oral Expression Ability: Yes: Moderate Impairment - Speech Production Apraxia: No Able to Make Needs Known: Yes: Moderately Impaired Intelligibility: Yes: Moderately Impaired - Speech Characteristics Voice Loudness: Limited Variation Voice Pitch: Yes: Limited Variation Voice Phonatory-based Quality: Yes: Strident Speech Pattern: Impaired Speech Clarity: < 75% Voice, Other Observations: Yes: Mouth Breathing Voice Comment: No true speech. Vocalizations observed with speech-like intonation - Language/Auditory Comprehension Observation: Able to respond to yes/no queries: No, Yes/No Confusion: No, Comprehends Conversational Speech: No, Benefits from Slow Speech: No, Benefits from Repetiton: No, Benefits from Increased Volume of Speech: No - Language/Verbal Expression Able to Respond to Simple Queries: Yes: Moderately Impaired Able to Communicate Wants and Needs: Yes: Moderately Impaired Functional Communication Status: Yes: Moderately Impaired Aware of Errors: No Attempts to Correct Errors: No Use of Gestures: No Written Expression: Not examined Oral Expression: No speech sample Reading Comprehension: Not examined Calculations: Not examined Attention: Yes: Moderate Impairment - Memory/Perception intermission coordinator Memory: Yes: Moderately Impaired Short Term Memory: Yes: Moderately Impaired - Swallow Evaluation/Bedside Assessment Current Nutritional Intake: Dysphagia Pureed, Thin Liquids Oral Secretions: Yes: Dryness, Tongue Coated Tracheostomy Present: No Patient on Ventilator: No Dentition: Yes: Adequate, Missing Teeth Facial Symmetry at Rest: Symmetrical Facial Symmetry on Retraction: Symmetrical Facial Movement: Involuntary Facial Comment: WFL for sppech and swallowing purposes. Against Resistance Opening: Normal Against Resistance Closing: Normal Lips, Comment: WFL for sppech and swallowing purposes. Limited unable to follow Lingual Movement: Unable to Perform Lingual Comment: Imformal observation WFL for sppech and swallowing purposes. Soft Palate Description: Normal Color Hard Palate Description: Normal Color Gag Reflex: Weak Bite Reflex: Present Velopharyngeal Movement: Reduced Elevation Laryngeal Elevation: WFL Laryngeal Movement: Able to Palpate, Labored,delay initiation Needs Assistance: Yes Rate of Intake: Slow/Holding Bolus Size: Small Labial Seal: WFL Chewing: Impaired Oral Prep Time: Increased A-P Transit: Impaired Timing of Swallow: Delayed Odynophagia: Oral, Pharyngeal Coughing/Throat Clear: Yes Change in Voice: No Other Findings/Remarks: 87 yo male seen by IRRIGATION DISTRICT MANAGER for swallow eval to r/o dysphagia. Pt is vocal (not verbal), A&Ox1 understands primary language ([place]). MHX includes non- insulin dependent diabetic, HTN dementia. Admitted to [facility] for AMS, shest pain , possible influenza. Current diet: pureed, thin, currently taking less than 25% of meal. Pt family member present for this session. Pt has a productive cough with audible breath sounds. Pt given po trials of puree with total assistance revealed reduced acceptance, poor bolus formation and transport, delayed pharyngeal swallows (2-4 seconds). Occasional cough observed when vocalizing with bolus in his mouth. Pt given po trials of thin and thicken liquids with total assistance via cup and by spoon revealed reduced acceptance, poor bolus formation and transport, delayed pharyngeal swallows (2-4 seconds). Occasional cough observed when vocalizing with thin liquids in his mouth. No aspiration-like behaviors with thicken liquids. Recommendations - Speech Evaluation, Impression/Plan Impression: Pt presents with moderate kiara-pharyngeal dysphagia for pureed solids and positive s/s of aspiration with thin liquids. Woods Laborer Goals: tolerate the least restrictive diet without s/s of aspiration Short Term Goals: tolerate pureed/nectar w/o s/s of aspiration - Dysphagia Impressions/Plan Swallowing Skills: Impaired Dysphagia Impressions: Moderate Impairment, Risk of Aspiration, Suspect Aspiration *Silent aspiration: cannot be R/O at bedside Dysphagia Treatment Plan: Small Bites, Safe Rate, 1/2 tsp. at a time, Elevate HOB during feed Dysphagia Evaluation Summary: Downgrade diet diabetic pureed solids and honey thicken liquids as tolerated. Offer small meals throughout the day instead of 3 large meals. Observed standard aspiration precautions. IRRIGATION DISTRICT MANAGER to follow up for intake and aspiration-behaviors. Recommendations: Modified Barium Swallow (Consider if pt is richard.) - Recommendations Diet Consistency: Dysphagia Pureed Medication Administration: Crushed with applesauce Liquids: Honey Thick (may be given by spoon.) Supplement: Glucerna (consider if intake does not improve.)
[2017-09-15] MEDS: OLANZapine 5 MG TABLET PO SCH (21:22)
[2017-09-15] MEDS: ATORVASTATIN CA 20 MG TABLET (FP) PO SCH (21:23)
[2017-09-16] MEDS: METOPROLOL TARTRATE 5 MG/5 ML VIAL IVPUSH SCH ×3 (03:10→16:35)
[2017-09-16] MEDS: INSULIN SLIDING SCALE (NOVOLOG) 1 VIAL SQ SCH ×3 (06:25→18:49)
--- NOTE | 2017-09-16 06:30 | PN ---
Progress Note (short form) - Note Progress Note: addendum diagnosis: Severe Malnutrition with intermediate illness, consuming < 75% of meals, weight loss, temporal wasting over 1 month
[2017-09-16 08:19] LABS: CHLORIDE 108 mmol/L (98-107); POTASSIUM 3.5 mmol/L (3.5-5.1); SODIUM 146 mmol/L (136-145)
[2017-09-16 08:27] LABS: ANION GAP 13 (8-16); BLOOD UREA NITROGEN 17 mg/dL (7-18); CALCIUM 8.4 mg/dL (8.5-10.1); CO2 25 mmol/L (21-32); CREATININE 0.7 mg/dL (0.7-1.3); GLUCOSE,RANDOM 149 mg/dL (74-106)
--- NOTE | 2017-09-16 09:14 | CONS ---
DATE OF CONSULTATION: 09/16/2017 PHYSICAL MEDICINE REHABILITATION CONSULTATION REFERRING PHYSICIAN: Ra Valadez MD HISTORY OF PRESENT ILLNESS: The patient is an 87-year-old male with a past medical history of dementia, coronary artery disease, coronary artery bypass graft, hypertension, who was admitted with chest pain, confusion. Patient was found to have elevated troponin and was tested positive for influenza. Patients admitting chest x-ray was normal, but he had leukocytosis with WBCs of 18.5, hemoglobin was normal at 14.0, and platelet count 206. He had slight elevation BUN at 24 and creatinine at 1.4, elevated BNP 8765, albumin was borderline low at 3.5 and has decreased on last blood work to 2.6. Otherwise, most recent chemistries showed improvement in WBCs, although they are still elevated at 11.1, hemoglobin 14.0, platelet count 347. Chemistries showed a low sodium of 3.3, but improvement of BUN to 18, creatinine 0.8. Patient remains confused. He did undergo ultrasound which showed multiple gallstones in the abdomen, but no acute cholecystitis. CT of the head showed moderate atrophy, but no acute intracranial pathology. The patient himself was not able to give any real history at this point and remains confused. He has not been able to get any therapy. He has lost a lot of weight and is eating less than 75% apparently of his meals. Patient again is now seen in rehabilitation evaluation. REVIEW OF PAST MEDICAL AND SURGICAL HISTORY: Dementia, hypertension, coronary artery disease, NC, coronary artery bypass graft. SOCIAL HISTORY: Is unavailable. He apparently presented with family, has a and daughter. Apparently his dementia is affecting his ability to relate with family at times. Premorbid status is not available, and there are no prior admissions. REVIEW OF SYSTEMS: Impossible due to patients mental status. PHYSICAL EXAMINATION: General: On examination, patient does mumble, but he is very hard to understand. He will follow some visual commands, but generally is very confused. HEENT: He is normocephalic and atraumatic. His extraocular muscles appear intact. He blinks to threat. No facial weakness. Poor dentition. Neck: Supple. Extremities: Without any pitting edema or calf tenderness. He has his left wrist wrapped with gauze, possibly over his IV site. Skin: Without any areas of breakdown or rash noted. Neuromuscular: He is awake, but very difficult to understand. Again, following some visual commands and tactile commands. Cranial nerves 3 through 12 are grossly intact. Difficult to test vision, but he does track and blink to threat. He has what appears to be at least antigravity movement in all 4 limbs, but difficult to track resistance. He withdraws to pinprick in the upper and lower extremities. Symmetric reflexes, downgoing toes. Unable to stand or ambulate him. OVERALL IMPRESSION: 1. Deficits mobility and activities of daily living. 2. Altered mental status, dementia with apparent aggressive behavior. 3. Congestive heart failure. 4. Influenza A. 5. Acute kidney injury, prerenal azotemia, improved. 6. Hypoalbuminemia with weight loss. 7. History of coronary artery disease. 8. Elevated troponin levels. 9. Poor oral fluid intake. 10. Multiple gallstones without evidence of acute cholecystitis. 11. Elevated risk for deep venous thrombosis due to immobility. 12. Elevated risk for pressure ulcers due to immobility. PLANS AND SUGGESTIONS: 1. When patients mental status improves, physical therapy. 2. Daily range of motion by nursing. 3. Patient is on Plavix. No further DVT prophylaxis needed. 4. Skin precautions, monitor healed sacrum for breakdown or erythema. Turn frequently. 5. Bowel regimen, monitor for constipation. 6. Monitor potassium level. 7. Nutritional support. Will need inpatient rehabilitation versus long-term care. Thank you for this referral. NOEL HUDSON M.D. [id number]
--- NOTE | 2017-09-16 10:16 | PN ---
Progress Note, Physician - Current Medication List Current Medications: Active Medications Acetaminophen (Tylenol -) 650 mg PO Q6H PRN PRN Reason: PAIN OR FEVER Last Admin: 09/11/17 14:15 Dose: 650 mg Amlodipine Besylate (Norvasc -) 2.5 mg PO DAILY [facility] Last Admin: 09/15/17 10:51 Dose: 2.5 mg Aspirin (Ecotrin -) 81 mg PO DAILY [facility] Last Admin: 09/15/17 10:52 Dose: 81 mg Atorvastatin Calcium (Lipitor -) 20 mg PO HS [facility] Last Admin: 09/15/17 21:23 Dose: 20 mg Clopidogrel Bisulfate (Plavix -) 75 mg PO DAILY [facility] Last Admin: 09/15/17 10:54 Dose: 75 mg Digoxin (Lanoxin -) 0.125 mg PO DAILY [facility] Last Admin: 09/15/17 10:51 Dose: 0.125 mg Insulin Aspart (Novolog Vial Sliding Scale -) 1 vial SQ TIDAC [facility] PRN Reason: Protocol Last Admin: 09/16/17 06:25 Dose: Not Given Isosorbide Mononitrate (Imdur -) 30 mg PO DAILY [facility] Last Admin: 09/15/17 10:51 Dose: 30 mg Metoprolol Succinate (Toprol Xl -) 25 mg PO DAILY [facility] Last Admin: 09/15/17 10:52 Dose: 25 mg Metoprolol Tartrate (Lopressor Injection -) 2.5 mg IVPUSH Q6H-IV [facility] Last Admin: 09/16/17 03:10 Dose: 2.5 mg Olanzapine (Zyprexa -) 5 mg PO HS [facility] Last Admin: 09/15/17 21:22 Dose: 5 mg Potassium Chloride (K-Dur -) 20 meq PO DAILY [facility] Last Admin: 09/15/17 10:51 Dose: 20 meq - Objective Vital Signs: Vital Signs Temperature 97.7 F 09/16/17 06:23 Pulse Rate 97 H 09/16/17 06:23 Respiratory Rate 18 09/16/17 06:23 Blood Pressure 148/80 09/16/17 06:23 O2 Sat by Pulse Oximetry (%) 96 09/15/17 21:00 Cardiovascular: Yes: S1, S2 Respiratory: Yes: Regular, CTA Bilaterally Gastrointestinal: Yes: Normal Bowel Sounds, Soft Labs: CBC, BMP 09/15/17 05:59 09/16/17 06:30 Assessment/Plan - Problems (1) Leukocytosis Assessment/Plan: improving off iv rocephin blood cultures neg RUQ sono shows contracted GB with multiple gall stones] Microbiology 09/11/17 06:15 Urine - Urine Clean Catch Urine Culture - Final NO GROWTH OBTAINED Code(s): D72.829 - ELEVATED WHITE BLOOD CELL COUNT, UNSPECIFIED (2) Dementia Assessment/Plan: seen by psych started on zyprexa ct of head nad Code(s): F03.90 - UNSPECIFIED DEMENTIA WITHOUT BEHAVIORAL DISTURBANCE (3) Influenza A Assessment/Plan: isolation tamiflu Code(s): J10.1 - FLU DUE TO OTH IDENT INFLUENZA VIRUS W OTH RESP MANIFEST (4) Congestive heart disease Assessment/Plan: echo normal LVEF Code(s): I50.9 - HEART FAILURE, UNSPECIFIED (5) Coronary artery disease Assessment/Plan: asa,lipitor and BB Code(s): I25.10 - ATHSCL HEART DISEASE OF [place] CORONARY ARTERY W/O ANG PCTRS (6) Elevated troponin Assessment/Plan: Laboratory Tests 09/12/17 09/13/17 06:53 06:00 Troponin I 0.15 H D 0.09 H D trend troponins cardio on board echo nl lv BB ,statin and aspirn Code(s): R74.8 - ABNORMAL LEVELS OF OTHER SERUM ENZYMES (7) Poor fluid intake Assessment/Plan: jennifer rodriguez to see patient ent noted dc ivf Code(s): R63.8 - OTHER SYMPTOMS AND SIGNS CONCERNING FOOD AND FLUID INTAKE PHYSICAL THERAPY--NF
[2017-09-16] MEDS: ISOSORBIDE MONONITRATE 30 MG TAB.SR.24H (FP) PO SCH (10:24)
[2017-09-16] MEDS: CLOPIDOGREL BISULFATE 75 MG TABLET (FP) PO SCH (10:24)
[2017-09-16] MEDS: amLODIPine BESYLATE 2.5 MG TABLET (FP) PO SCH (10:24)
[2017-09-16] MEDS: POTASSIUM CHLORIDE TABS 20 MEQ TABLET.ER (FP) PO SCH (10:24)
[2017-09-16] MEDS: ASPIRIN COATED 81 MG TABLET.EC PO SCH (10:24)
[2017-09-16] MEDS: DIGOXIN 0.125 MG TABLET (FP) PO SCH (10:24)
--- NOTE | 2017-09-16 12:44 | PN ---
Progress Note, RESIDENT PHYSICIAN - Note Progress Note: Alert today, speaking in [place]. Dysarthria with open mouth posture and oral dryness. Impaired bilabial close,oral holding, speaking with food in oral cavity. Pt needs repeat verbal cues to close his mouth and swallow. Swallow is infrequent, quite delayed, with weak rate of elevation and excursion. Risk of aspiration, Suspected intermittently. Selected Entries 09/15/17 09/15/17 09/15/17 02:00 06:00 10:00 Breakfast Supper Temperature 97.4 F L 97.3 F L 98.5 F 09/15/17 09/15/17 09/15/17 14:39 18:00 22:49 Breakfast Supper 25% Temperature 97.8 F 97.7 F 97.9 F 09/16/17 09/16/17 09/16/17 02:18 06:23 09:48 Breakfast 0 Supper Temperature 98.2 F 97.7 F 09/16/17 10:19 Breakfast Supper Temperature 97.6 F Laboratory Tests 09/13/17 09/15/17 06:00 05:59 WBC 13.3 H 11.1 H REC: Dys puree/honey thick liquid on tsp only with chin tuck. TELL pt to not talk and to swallow with each bite. Monitor PO tolerance. d/c Glucerna, Trial Magic cup/Ensure Pudding. MBS, as indicated.
[2017-09-16] MEDS ORDERED: METOPROLOL TARTRATE 25 MG TABLET (FP) PO ONE (16:03)
[2017-09-16] MEDS ORDERED: METOPROLOL TARTRATE 5 MG/5 ML VIAL IVPUSH PRN (16:06)
--- NOTE | 2017-09-16 16:11 | PN ---
Progress Note, Physician Chief Complaint: Pt remains confused, agitated; dod not follow verbal requests. History of Present Illness: Pt is an 87-year-old male (b. [place]), with PM history of non-insulin- dependent diabetes, CABG ( reports pt having the procedure ?1998; hx multiple MIs), s/p coronary angiogram 2016 ([place]; per , was told he might need "a pacemaker"), hypertension, dementia (hx primarily given by ), now presents with productive cough with pleuritic chest pain and possibly confusion since last night. Had a low-grade fever for 100.9 this a.m. as per . Able to give some history and only states he has cough with chest pain. Denies sob, body aches, nausea, vomiting, headache, neck pain, abd pain, change to BM or dysuria - Current Medication List Current Medications: Active Medications Acetaminophen (Tylenol -) 650 mg PO Q6H PRN PRN Reason: PAIN OR FEVER Last Admin: 09/11/17 14:15 Dose: 650 mg Amlodipine Besylate (Norvasc -) 2.5 mg PO DAILY [facility] Last Admin: 09/16/17 10:24 Dose: 2.5 mg Aspirin (Ecotrin -) 81 mg PO DAILY [facility] Last Admin: 09/16/17 10:24 Dose: 81 mg Atorvastatin Calcium (Lipitor -) 20 mg PO HS [facility] Last Admin: 09/15/17 21:23 Dose: 20 mg Clopidogrel Bisulfate (Plavix -) 75 mg PO DAILY [facility] Last Admin: 09/16/17 10:24 Dose: 75 mg Digoxin (Lanoxin -) 0.125 mg PO DAILY [facility] Last Admin: 09/16/17 10:24 Dose: 0.125 mg Insulin Aspart (Novolog Vial Sliding Scale -) 1 vial SQ TIDAC [facility] PRN Reason: Protocol Last Admin: 09/16/17 13:10 Dose: Not Given Isosorbide Mononitrate (Imdur -) 30 mg PO DAILY [facility] Last Admin: 09/16/17 10:24 Dose: 30 mg Metoprolol Succinate (Toprol Xl -) 25 mg PO DAILY [facility] Last Admin: 09/15/17 10:52 Dose: 25 mg Metoprolol Tartrate (Lopressor Injection -) 2.5 mg IVPUSH Q6H-IV [facility] Last Admin: 09/16/17 09:00 Dose: 2.5 mg Olanzapine (Zyprexa -) 5 mg PO HS [facility] Last Admin: 09/15/17 21:22 Dose: 5 mg Potassium Chloride (K-Dur -) 20 meq PO DAILY [facility] Last Admin: 09/16/17 10:24 Dose: 20 meq - Objective Vital Signs: Vital Signs Temperature 98.0 F 09/16/17 14:00 Pulse Rate 102 H 09/16/17 14:00 Respiratory Rate 18 09/16/17 14:00 Blood Pressure 138/80 09/16/17 14:00 O2 Sat by Pulse Oximetry (%) 96 09/16/17 09:00 Constitutional: Yes: Anxious Eyes: Yes: WNL HENT: Yes: WNL Neck: Yes: WNL Cardiovascular: Yes: Tachycardia, S1 (split), S2, S4 Respiratory: Yes: Regular Gastrointestinal: Yes: Soft Genitourinary: No: Anuria Musculoskeletal: Yes: Muscle Weakness Extremities: Yes: Cool Edema: No Peripheral Pulses WNL: Yes Integumentary: Yes: WNL Neurological: Yes: Confusion, Weakness Psychiatric: Yes: Other (dementia) Labs: CBC, BMP 09/15/17 05:59 09/16/17 06:30 - ....Imaging Other: Image Reviewed (telemetryi: NSR; several brief runs of PSVT) Problem List - Problems (1) Congestive heart disease Assessment/Plan: BNP 8,765 initially. No JVD. ECHO: normal LVEF CXR: no acute pathology. BUN/Cr, electrolytes, daily weight, Is ands Os. Consider starting ACEI (improving renal function; HTN; DM; diastolic CHF). Change metoprolol succinate to tartrate for ability to crushl; use IV if pt refuses PO. May not require digoxin (normal sinus rhythm; ?no hx AF; systolic LVEF is normal ). If need to continue, keep level 0.5-1.0 (presently 0.5). Code(s): I50.9 - HEART FAILURE, UNSPECIFIED (2) Coronary artery disease Assessment/Plan: s/p CABG ?1998. s/p coronary angiogram 2016 (f/u results of study: ? coronary stent). TNI 0.17-->0.33-->0.15; CKBM relative index is low. TNI ikely elevated from demand stress from sepsis. No acute STT changes on EKG ECHO: normal LVEF. On ASA and clopidogrel. On metoprolol for BP and HR control; CAD. Code(s): I25.10 - ATHSCL HEART DISEASE OF [place] CORONARY ARTERY W/O ANG PCTRS (3) Influenza A Assessment/Plan: s/p Tamiflu. Code(s): J10.1 - FLU DUE TO OTH IDENT INFLUENZA VIRUS W OTH RESP MANIFEST (4) Sepsis Assessment/Plan: s/p antibiotics.. Code(s): A41.9 - SEPSIS, UNSPECIFIED ORGANISM (5) Renal insufficiency Assessment/Plan: improved; maintain hydration. Code(s): N28.9 - DISORDER OF KIDNEY AND URETER, UNSPECIFIED (6) Leukocytosis Assessment/Plan: improving; off antibioitics. Code(s): D72.829 - ELEVATED WHITE BLOOD CELL COUNT, UNSPECIFIED (7) Hypercholesteremia Assessment/Plan: on atorvastatin; increased to 20 mg daily (LDL 92 mg/dL). Code(s): E78.00 - PURE HYPERCHOLESTEROLEMIA, UNSPECIFIED (8) Dementia Code(s): F03.90 - UNSPECIFIED DEMENTIA WITHOUT BEHAVIORAL DISTURBANCE (9) PSVT (paroxysmal supraventricular tachycardia) Assessment/Plan: change to metoprolol tartrate (to be able to crush medication) 12.5 mg bid. IV metoprolol prn. Keep K 4-4.5, Mg 2-2.3. Code(s): I47.1 - SUPRAVENTRICULAR TACHYCARDIA (10) Hypomagnesemia Assessment/Plan: replete; keep level 2-2.3; keep K+ 4-4.5. Code(s): E83.42 - HYPOMAGNESEMIA
[2017-09-16] MEDS: metoPROLOL SUCCINATE 25 MG TAB.SR.24H (FP) PO SCH (16:34)
[2017-09-16 17:13] LABS: MAGNESIUM 1.7 mg/dL (1.8-2.4)
[2017-09-16] MEDS ORDERED: MAGNESIUM SULFATE IN WATER 2 GM/50 ML IVPB IVPB ONE (19:00)
[2017-09-16 21:30] LABS: MAGNESIUM 1.8 mg/dL (1.8-2.4)
[2017-09-16] MEDS: ATORVASTATIN CA 20 MG TABLET (FP) PO SCH (23:22)
[2017-09-16] MEDS: METOPROLOL TARTRATE 25 MG TABLET (FP) PO SCH (23:22)
[2017-09-16] MEDS: OLANZapine 5 MG TABLET PO SCH (23:23)
[2017-09-17] MEDS: INSULIN SLIDING SCALE (NOVOLOG) 1 VIAL SQ SCH ×3 (06:19→16:55)
--- NOTE | 2017-09-17 07:34 | DS ---
Physical Examination Vital Signs: Vital Signs Temperature 97.7 F 09/17/17 06:00 Pulse Rate 97 H 09/17/17 06:00 Respiratory Rate 20 09/17/17 06:00 Blood Pressure 140/70 09/17/17 06:00 O2 Sat by Pulse Oximetry (%) 94 L 09/16/17 21:00 Labs: CBC, BMP 09/15/17 05:59 09/16/17 06:30 Discharge Summary Reason For Visit: ELEVATED TROPONIN LEVELS Current Active Problems Congestive heart disease (Acute) Coronary artery disease (Acute) Dementia (Acute) Elevated troponin (Acute) Hypercholesteremia (Acute) Hypomagnesemia (Acute) Influenza A (Acute) Leukocytosis (Acute) Mild tongue swelling (Acute) PSVT (paroxysmal supraventricular tachycardia) (Acute) Poor fluid intake (Acute) Renal insufficiency (Acute) Sepsis (Acute) Condition: Fair - Instructions Referrals: Wyatt Lee MD [Primary Care Provider] - Disposition: [facility]ACILITY - Home Medications Comprehensive Discharge Medication List: Ambulatory Orders Amlodipine Besylate [Norvasc -] 2.5 mg PO DAILY 09/09/17 Clopidogrel Bisulfate [Clopidogrel] 75 mg PO DAILY 09/09/17 Digoxin [Lanoxin -] 0.125 mg PO DAILY 09/09/17 Isosorbide Mononitrate [Imdur -] 30 mg PO DAILY 09/09/17 Acetaminophen [Tylenol .Regular Strength -] 650 mg PO Q6H PRN tablet 09/17/17 Aspirin Coated [Ecotrin -] 81 mg PO DAILY tablet.ec 09/17/17 Insulin Sliding Scale [Novolog Vial Sliding Scale -] 1 vial SQ TIDAC units Metoprolol Tartrate [Lopressor -] 12.5 mg PO BID tablet 09/17/17 Olanzapine [Zyprexa -] 5 mg PO HS tablet 09/17/17 Potassium Chloride [K-Dur -] 20 meq PO DAILY tablet.er 09/17/17
--- NOTE | 2017-09-17 08:48 | PN ---
Progress Note, Physician History of Present Illness: not eating well holding food in his mouth - Current Medication List Current Medications: Active Medications Acetaminophen (Tylenol -) 650 mg PO Q6H PRN PRN Reason: PAIN OR FEVER Last Admin: 09/11/17 14:15 Dose: 650 mg Amlodipine Besylate (Norvasc -) 2.5 mg PO DAILY [facility] Last Admin: 09/16/17 10:24 Dose: 2.5 mg Aspirin (Ecotrin -) 81 mg PO DAILY [facility] Last Admin: 09/16/17 10:24 Dose: 81 mg Atorvastatin Calcium (Lipitor -) 20 mg PO HS [facility] Last Admin: 09/16/17 23:22 Dose: Not Given Clopidogrel Bisulfate (Plavix -) 75 mg PO DAILY [facility] Last Admin: 09/16/17 10:24 Dose: 75 mg Digoxin (Lanoxin -) 0.125 mg PO DAILY [facility] Last Admin: 09/16/17 10:24 Dose: 0.125 mg Insulin Aspart (Novolog Vial Sliding Scale -) 1 vial SQ TIDAC [facility] PRN Reason: Protocol Last Admin: 09/17/17 06:19 Dose: Not Given Isosorbide Mononitrate (Imdur -) 30 mg PO DAILY [facility] Last Admin: 09/16/17 10:24 Dose: 30 mg Metoprolol Tartrate (Lopressor -) 12.5 mg PO BID [facility] Last Admin: 09/16/17 23:22 Dose: Not Given Metoprolol Tartrate (Lopressor Injection -) 2.5 mg IVPUSH Q6H PRN PRN Reason: HYPERTENSION Olanzapine (Zyprexa -) 5 mg PO [facility] Last Admin: 09/16/17 23:23 Dose: Not Given Potassium Chloride (K-Dur -) 20 meq PO DAILY [facility] Last Admin: 09/16/17 10:24 Dose: 20 meq - Objective Vital Signs: Vital Signs Temperature 97.7 F 09/17/17 06:00 Pulse Rate 97 H 09/17/17 06:00 Respiratory Rate 20 09/17/17 06:00 Blood Pressure 140/70 09/17/17 06:00 O2 Sat by Pulse Oximetry (%) 94 L 09/16/17 21:00 Cardiovascular: Yes: S1, S2 Respiratory: Yes: Regular, CTA Bilaterally Gastrointestinal: Yes: Normal Bowel Sounds, Soft. No: Tenderness Labs: CBC, BMP 09/15/17 05:59 09/16/17 06:30 Assessment/Plan - Problems (1) Leukocytosis Assessment/Plan: improving off iv rocephin blood cultures neg RUQ sono shows contracted GB with multiple gall stones] Microbiology 09/11/17 06:15 Urine - Urine Clean Catch Urine Culture - Final NO GROWTH OBTAINED Code(s): D72.829 - ELEVATED WHITE BLOOD CELL COUNT, UNSPECIFIED (2) Dementia Assessment/Plan: seen by psych started on zyprexa ct of head nad Code(s): F03.90 - UNSPECIFIED DEMENTIA WITHOUT BEHAVIORAL DISTURBANCE (3) Influenza A Assessment/Plan: isolation tamiflu Code(s): J10.1 - FLU DUE TO OTH IDENT INFLUENZA VIRUS W OTH RESP MANIFEST (4) Congestive heart disease Assessment/Plan: echo normal LVEF Code(s): I50.9 - HEART FAILURE, UNSPECIFIED (5) Coronary artery disease Assessment/Plan: asa,lipitor and BB Code(s): I25.10 - ATHSCL HEART DISEASE OF [place] CORONARY ARTERY W/O ANG PCTRS (6) Elevated troponin Assessment/Plan: Laboratory Tests 09/12/17 09/13/17 06:53 06:00 Troponin I 0.15 H D 0.09 H D trend troponins cardio on board echo nl lv BB ,statin and aspirn Code(s): R74.8 - ABNORMAL LEVELS OF OTHER SERUM ENZYMES (7) Poor fluid intake Assessment/Plan: jennifer rodriguez to see patient ent noted dc ivf gi consult for peg Code(s): R63.8 - OTHER SYMPTOMS AND SIGNS CONCERNING FOOD AND FLUID INTAKE PHYSICAL THERAPY--NF
--- NOTE | 2017-09-17 09:31 | CON.GI ---
Consult Consult Specialty:: GI Reason for Consultation:: failure to thrive - History of Present Illness History of Present Illness: Plavix Chart reviewed. Events noted. An 87 yom with poor PO intake, Alzheimer's dementia, requires alternative means of receiving adequate nutrition, hydration, medications. On ASA and Plavix. Mild leukocytosis appears to be improving. Electrolytes imbalance. - History Source History Provided By: Medical Record - Past Medical History [employer] HE[employer]: Yes: Dementia Cardio/Vascular: Yes: CAD, HTN, SD Psych: Yes: Other - Past Surgical History Past Surgical History: Yes: CABG Additional Surgical History: coronary angiogram 2016; reportedly did not require stent or other PCI - Smoking History Smoking history: Never smoked Have you smoked in the past 12 months: No - Social History Usual Living Arrangement: With Spouse ADL: Family Assistance Home Medications - Allergies Allergies/Adverse Reactions: Allergies Allergy/AdvReac Type Severity Reaction Status Date / Time No Known Allergies Allergy Verified 09/09/17 10:47 - Home Medications Home Medications: Ambulatory Orders Amlodipine Besylate [Norvasc -] 2.5 mg PO DAILY 09/09/17 Clopidogrel Bisulfate [Clopidogrel] 75 mg PO DAILY 09/09/17 Digoxin [Lanoxin -] 0.125 mg PO DAILY 09/09/17 Isosorbide Mononitrate [Imdur -] 30 mg PO DAILY 09/09/17 Acetaminophen [Tylenol .Regular Strength -] 650 mg PO Q6H PRN tablet 09/17/17 Aspirin Coated [Ecotrin -] 81 mg PO DAILY tablet.ec 09/17/17 Insulin Sliding Scale [Novolog Vial Sliding Scale -] 1 vial SQ TIDAC units Metoprolol Tartrate [Lopressor -] 12.5 mg PO BID tablet 09/17/17 Olanzapine [Zyprexa -] 5 mg PO HS tablet 09/17/17 Potassium Chloride [K-Dur -] 20 meq PO DAILY tablet.er 09/17/17 Family Disease History - Family Disease History Family History: Unremarkable (non-contributory) Review of Systems Findings/Remarks: As per H&P Physical Exam-GI Vital Signs: Vital Signs Temperature 97.7 F 09/17/17 09:15 Pulse Rate 94 H 09/17/17 09:15 Respiratory Rate 20 09/17/17 09:15 Blood Pressure 138/78 09/17/17 09:15 O2 Sat by Pulse Oximetry (%) 94 L 09/16/17 21:00 Constitutional: Yes: No Distress, Cachectic, Pallor, Thin Cardiovascular: Yes: Pulse Irregular. No: Bradycardia, Tachycardia Respiratory: Yes: Regular Gastrointestinal Inspection: Yes: Scars. No: Distention ...Palpate: Yes: Soft. No: Firm/Rigid, Guarding, Mass, Tenderness, Tenderness, Rebound ...Percussion: No: Fluid Wave Neurological: Yes: Confusion Labs: CBC, BMP 09/15/17 05:59 09/16/17 06:30 CBCD WBC 11.1 K/mm3 (4.0-10.0) H 09/15/17 05:59 RBC 4.64 M/mm3 (4.00-5.60) 09/15/17 05:59 Hgb 14.0 GM/dL (11.7-16.9) 09/15/17 05:59 Hct 41.8 % (35.4-49) 09/15/17 05:59 MCV 90.2 fl (80-96) 09/15/17 05:59 MCHC 33.5 g/dl (32.0-35.9) 09/15/17 05:59 RDW 13.8 % (11.9-15.9) 09/15/17 05:59 Plt Count 347 K/MM3 (134-434) D 09/15/17 05:59 MPV 8.1 fl (7.5-11.1) 09/15/17 05:59 CMP Sodium 146 mmol/L (136-145) H 09/16/17 06:30 Potassium 3.5 mmol/L (3.5-5.1) 09/16/17 06:30 Chloride 108 mmol/L (98-107) H 09/16/17 06:30 Carbon Dioxide 25 mmol/L (21-32) 09/16/17 06:30 Anion Gap 13 (8-16) 09/16/17 06:30 BUN 17 mg/dL (7-18) 09/16/17 06:30 Creatinine 0.7 mg/dL (0.7-1.3) 09/16/17 06:30 Creat Clearance w eGFR > 60 (>60) 09/15/17 05:59 Calcium 8.4 mg/dL (8.5-10.1) L 09/16/17 06:30 Total Bilirubin 1.3 mg/dL (0.2-1.0) H 09/15/17 05:59 AST 41 U/L (15-37) H 09/15/17 05:59 ALT 27 U/L (12-78) 09/15/17 05:59 Alkaline Phosphatase 121 U/L (45-117) H 09/15/17 05:59 Total Protein 6.5 g/dl (6.4-8.2) 09/15/17 05:59 Albumin 2.6 g/dl (3.4-5.0) L 09/15/17 05:59 Imaging - Results Ultrasound: Report Reviewed (09/11/17) Problem List - Problems (1) Dementia Code(s): F03.90 - UNSPECIFIED DEMENTIA WITHOUT BEHAVIORAL DISTURBANCE (2) Poor fluid intake Code(s): R63.8 - OTHER SYMPTOMS AND SIGNS CONCERNING FOOD AND FLUID INTAKE Assessment/Plan Hold Plavix if possible OK to continue ASA if indicated Correct electrolytes Plan for PEG early next week (clopidogrel)
[2017-09-17 09:40] LABS: URINE APPEARANCE CLEAR; URINE BILIRUBIN NEGATIVE (NEGATIVE); URINE BLOOD 1+ (NEGATIVE); URINE COLOR YELLOW; URINE GLUCOSE (UA) NEGATIVE (NEGATIVE); URINE KETONE 1+ (NEGATIVE); URINE LEUK ESTERASE NEGATIVE (NEGATIVE); URINE NITRITE NEGATIVE (NEGATIVE)
[2017-09-17 09:45] LABS: URINE PROTEIN 1+ (NEGATIVE)
[2017-09-17 09:46] LABS: BASO % 0.1 % (0-2.0); EOS % 0.5 % (0-4.5); HEMATOCRIT 40.8 % (35.4-49); HEMOGLOBIN 13.2 GM/dL (11.7-16.9); LYMPH % 6.7 % (8-40); MCHC 32.3 g/dl (32.0-35.9); MEAN CELL VOLUME 89.7 fl (80-96); MEAN PLT VOLUME 7.3 fl (7.5-11.1); MONO % 6.2 % (3.8-10.2); NEUT % 86.5 % (42.8-82.8); PLATELET COUNT 392 K/MM3 (134-434); RBC 4.54 M/mm3 (4.00-5.60); WHITE BLOOD COUNT 11.3 K/mm3 (4.0-10.0)
[2017-09-17 09:46] LABS: EPI CELLS RARE /HPF (FEW); URINE MUCUS RARE
[2017-09-17 10:09] LABS: CALCIUM 8.6 mg/dL (8.5-10.1); CHLORIDE 108 mmol/L (98-107); POTASSIUM 3.3 mmol/L (3.5-5.1); SODIUM 146 mmol/L (136-145)
[2017-09-17 10:15] LABS: ALBUMIN 2.5 g/dl (3.4-5.0); ALK PHOS 124 U/L (45-117); ANION GAP 10 (8-16); BILIRUBIN,TOTAL 0.9 mg/dL (0.2-1.0); BLOOD UREA NITROGEN 16 mg/dL (7-18); CO2 28 mmol/L (21-32); CREATININE 0.7 mg/dL (0.7-1.3); GLUCOSE,RANDOM 176 mg/dL (74-106); SGOT/AST 31 U/L (15-37); SGPT/ALT 23 U/L (12-78); TOT PROT 6.5 g/dl (6.4-8.2)
--- NOTE | 2017-09-17 10:43 | PN ---
Progress Note, Physician History of Present Illness: 87-year-old male (b. [place]), with PMhistory of lri-whrwaoo-ycalvvhys diabetes, CABG ( reports pt having the procedure ?1998; hx multiple MIs), s/ p coronary angiogram 2016 ([place]; per , was told he might need "a pacemaker"), hypertension, dementia (hx primarily given by ), now presents with productive cough with pleuritic chest pain and possibly confusion since last night. Had a low-grade fever for 100.9 this a.m. as per . Able to give some history and only states he has cough with chest pain. Denies sob, body aches, nausea, vomiting, headache, neck pain, abd pain, change to BM or dysuria - Current Medication List Current Medications: Active Medications Acetaminophen (Tylenol -) 650 mg PO Q6H PRN PRN Reason: PAIN OR FEVER Last Admin: 09/11/17 14:15 Dose: 650 mg Amlodipine Besylate (Norvasc -) 2.5 mg PO DAILY [facility] Last Admin: 09/16/17 10:24 Dose: 2.5 mg Aspirin (Ecotrin -) 81 mg PO DAILY [facility] Last Admin: 09/16/17 10:24 Dose: 81 mg Atorvastatin Calcium (Lipitor -) 20 mg PO [facility] Last Admin: 09/16/17 23:22 Dose: Not Given Clopidogrel Bisulfate (Plavix -) 75 mg PO DAILY [facility] Last Admin: 09/16/17 10:24 Dose: 75 mg Digoxin (Lanoxin -) 0.125 mg PO DAILY [facility] Last Admin: 09/16/17 10:24 Dose: 0.125 mg Insulin Aspart (Novolog Vial Sliding Scale -) 1 vial SQ TIDAC [facility] PRN Reason: Protocol Last Admin: 09/17/17 06:19 Dose: Not Given Isosorbide Mononitrate (Imdur -) 30 mg PO DAILY [facility] Last Admin: 09/16/17 10:24 Dose: 30 mg Metoprolol Tartrate (Lopressor -) 12.5 mg PO BID [facility] Last Admin: 09/16/17 23:22 Dose: Not Given Metoprolol Tartrate (Lopressor Injection -) 2.5 mg IVPUSH Q6H PRN PRN Reason: HYPERTENSION Olanzapine (Zyprexa -) 5 mg PO [facility] Last Admin: 09/16/17 23:23 Dose: Not Given Potassium Chloride (K-Dur -) 20 meq PO DAILY [facility] Last Admin: 09/16/17 10:24 Dose: 20 meq - Objective Vital Signs: Vital Signs Temperature 97.7 F 09/17/17 09:15 Pulse Rate 94 H 09/17/17 09:15 Respiratory Rate 20 09/17/17 09:15 Blood Pressure 138/78 09/17/17 09:15 O2 Sat by Pulse Oximetry (%) 94 L 09/16/17 21:00 Eyes: Yes: WNL, Conjunctiva Clear, EOM Intact HENT: Yes: WNL, Atraumatic, Normocephalic Neck: Yes: WNL, Supple, Trachea Midline Cardiovascular: Yes: WNL, Regular Rate and Rhythm Respiratory: Yes: WNL, Regular, CTA Bilaterally Gastrointestinal: Yes: WNL, Normal Bowel Sounds Genitourinary: Yes: WNL Musculoskeletal: Yes: WNL Extremities: Yes: WNL Edema: No Integumentary: Yes: WNL ...Motor Strength: WNL Psychiatric: Yes: WNL Labs: CBC, BMP 09/17/17 09:20 09/17/17 09:20 Assessment/Plan (1) Congestive heart disease Assessment/Plan: BNP 8,765 initially. No JVD. ECHO: normal LVEF CXR: no acute pathology. BUN/Cr, electrolytes, daily weight, Is ands Os. Consider starting ACEI (improving renal function; HTN; DM; diastolic CHF). Change metoprolol succinate to tartrate for ability to crushl; use IV if pt refuses PO. May not require digoxin (normal sinus rhythm; ?no hx AF; systolic LVEF is normal ). If need to continue, keep level 0.5-1.0 (presently 0.5). Code(s): I50.9 - HEART FAILURE, UNSPECIFIED (2) Coronary artery disease Assessment/Plan: s/p CABG ?1998. s/p coronary angiogram 2016 (f/u results of study: ? coronary stent). TNI 0.17-->0.33-->0.15; CKBM relative index is low. TNI ikely elevated from demand stress from sepsis. No acute STT changes on EKG ECHO: normal LVEF. On ASA and clopidogrel. On metoprolol for BP and HR control; CAD. Code(s): I25.10 - ATHSCL HEART DISEASE OF [place] CORONARY ARTERY W/O ANG PCTRS (3) Influenza A Assessment/Plan: s/p Tamiflu. Code(s): J10.1 - FLU DUE TO OTH IDENT INFLUENZA VIRUS W OTH RESP MANIFEST (4) Sepsis Assessment/Plan: s/p antibiotics.. Code(s): A41.9 - SEPSIS, UNSPECIFIED ORGANISM (5) Renal insufficiency Assessment/Plan: improved; maintain hydration. Code(s): N28.9 - DISORDER OF KIDNEY AND URETER, UNSPECIFIED (6) Leukocytosis Assessment/Plan: improving; off antibioitics. Code(s): D72.829 - ELEVATED WHITE BLOOD CELL COUNT, UNSPECIFIED (7) Hypercholesteremia Assessment/Plan: on atorvastatin; increased to 20 mg daily (LDL 92 mg/dL). Code(s): E78.00 - PURE HYPERCHOLESTEROLEMIA, UNSPECIFIED (8) Dementia Code(s): F03.90 - UNSPECIFIED DEMENTIA WITHOUT BEHAVIORAL DISTURBANCE (9) PSVT (paroxysmal supraventricular tachycardia) Assessment/Plan: change to metoprolol tartrate (to be able to crush medication) 12.5 mg bid. IV metoprolol prn. Keep K 4-4.5, Mg 2-2.3. Code(s): I47.1 - SUPRAVENTRICULAR TACHYCARDIA (10) Hypomagnesemia Assessment/Plan: replete; keep level 2-2.3; keep K+ 4-4.5. Code(s): E83.42 - HYPOMAGNESEMIA
[2017-09-17] MEDS ORDERED: KCL 10 MEQ IVPB 10 MEQ/100 ML INFUS.BAG IVPB SCH (11:00)
[2017-09-17] MEDS: ASPIRIN COATED 81 MG TABLET.EC PO SCH (11:21)
[2017-09-17] MEDS: ISOSORBIDE MONONITRATE 30 MG TAB.SR.24H (FP) PO SCH (11:21)
[2017-09-17] MEDS: METOPROLOL TARTRATE 25 MG TABLET (FP) PO SCH ×2 (11:21→21:15)
[2017-09-17] MEDS: POTASSIUM CHLORIDE TABS 20 MEQ TABLET.ER (FP) PO SCH (11:21)
[2017-09-17] MEDS: DIGOXIN 0.125 MG TABLET (FP) PO SCH (11:22)
[2017-09-17] MEDS: amLODIPine BESYLATE 2.5 MG TABLET (FP) PO SCH (11:22)
[2017-09-17] MEDS: CLOPIDOGREL BISULFATE 75 MG TABLET (FP) PO SCH (12:31)
--- NOTE | 2017-09-17 14:20 | PN ---
Progress Note, MANAGER PRINT - Note Progress Note: Selected Entries 09/17/17 09/17/17 10:29 13:57 Breakfast 0 Lunch 0 Laboratory Tests 09/17/17 09:20 WBC 11.3 H Poor tolerance of PO trials. Poor kiara-pharyngeal transfer and weak swallow. Suction required intermittently. Consider NPO/Clinimix if not medically contraindicated. PEG is planned for next weak.
[2017-09-17] MEDS: POTASSIUM CHLORIDE 10 MEQ in SODIUM CHLORIDE 100 ML IVPB SCH ×2 (14:36→15:50)
[2017-09-17] MEDS: AMINO ACIDS 4.25%/D5W 1,000 ML IV SCH (17:55)
[2017-09-17] MEDS ORDERED: ACETAMINOPHEN 650 MG SUPP.RECT PR PRN (20:18)
[2017-09-17] MEDS: ATORVASTATIN CA 20 MG TABLET (FP) PO SCH (21:15)
[2017-09-17] MEDS: OLANZapine 5 MG TABLET PO SCH (21:15)
[2017-09-18] MEDS: INSULIN SLIDING SCALE (NOVOLOG) 1 VIAL SQ SCH ×3 (06:01→16:25)
--- NOTE | 2017-09-18 07:46 | PN ---
Progress Note, Physician History of Present Illness: not eating well holding food in his mouth cough when eating-aspiration risk-npo - Current Medication List Current Medications: Active Medications Acetaminophen (Tylenol Suppository -) 650 mg MS Q6H PRN PRN Reason: FEVER Last Admin: 09/17/17 20:34 Dose: 650 mg Amlodipine Besylate (Norvasc -) 2.5 mg PO DAILY [facility] Last Admin: 09/17/17 11:22 Dose: 2.5 mg Aspirin (Ecotrin -) 81 mg PO DAILY [facility] Last Admin: 09/17/17 11:21 Dose: 81 mg Atorvastatin Calcium (Lipitor -) 20 mg PO HS [facility] Last Admin: 09/17/17 21:15 Dose: Not Given Digoxin (Lanoxin -) 0.125 mg PO DAILY [facility] Last Admin: 09/17/17 11:22 Dose: 0.125 mg Amino Acids (Clinimix -) 1,000 mls @ 42 mls/hr IV Q24H [facility] Last Admin: 09/17/17 17:55 Dose: 42 mls/hr Insulin Aspart (Novolog Vial Sliding Scale -) 1 vial SQ TIDAC [facility] PRN Reason: Protocol Last Admin: 09/18/17 06:01 Dose: 2 units Isosorbide Mononitrate (Imdur -) 30 mg PO DAILY [facility] Last Admin: 09/17/17 11:21 Dose: 30 mg Metoprolol Tartrate (Lopressor -) 12.5 mg PO BID [facility] Last Admin: 09/17/17 21:15 Dose: Not Given Metoprolol Tartrate (Lopressor Injection -) 2.5 mg IVPUSH Q6H PRN PRN Reason: HYPERTENSION Last Admin: 09/17/17 21:32 Dose: 2.5 mg Olanzapine (Zyprexa -) 5 mg PO HS [facility] Last Admin: 09/17/17 21:15 Dose: Not Given Potassium Chloride (K-Dur -) 20 meq PO DAILY [facility] Last Admin: 09/17/17 11:21 Dose: 20 meq - Objective Vital Signs: Vital Signs Temperature 97.6 F 09/18/17 06:00 Pulse Rate 98 H 09/18/17 06:00 Respiratory Rate 22 09/18/17 06:00 Blood Pressure 121/61 09/18/17 06:00 O2 Sat by Pulse Oximetry (%) 92 L 09/17/17 21:00 Neck: Yes: Supple Cardiovascular: Yes: S1, S2 Respiratory: Yes: Rales (at the bases) Gastrointestinal: Yes: Normal Bowel Sounds, Soft Edema: No Labs: CBC, BMP 09/17/17 09:20 09/17/17 09:20 Assessment/Plan - Problems (1) Leukocytosis Assessment/Plan: improving off iv rocephin blood cultures neg RUQ sono shows contracted GB with multiple gall stones] Microbiology 09/11/17 06:15 Urine - Urine Clean Catch Urine Culture - Final NO GROWTH OBTAINED Code(s): D72.829 - ELEVATED WHITE BLOOD CELL COUNT, UNSPECIFIED (2) Dementia Assessment/Plan: seen by psych started on zyprexa ct of head nad Code(s): F03.90 - UNSPECIFIED DEMENTIA WITHOUT BEHAVIORAL DISTURBANCE (3) Influenza A Assessment/Plan: isolation tamiflu Code(s): J10.1 - FLU DUE TO OTH IDENT INFLUENZA VIRUS W OTH RESP MANIFEST (4) Congestive heart disease Assessment/Plan: echo normal LVEF Code(s): I50.9 - HEART FAILURE, UNSPECIFIED (5) Coronary artery disease Assessment/Plan: asa,lipitor and BB Code(s): I25.10 - ATHSCL HEART DISEASE OF [place] CORONARY ARTERY W/O ANG PCTRS (6) Elevated troponin Assessment/Plan: Laboratory Tests 09/12/17 09/13/17 06:53 06:00 Troponin I 0.15 H D 0.09 H D trend troponins cardio on board echo nl lv BB ,statin and aspirn Code(s): R74.8 - ABNORMAL LEVELS OF OTHER SERUM ENZYMES (7) Poor fluid intake Assessment/Plan: jennifer rodriguez to see patient ent noted dc ivf gi consult for peg Code(s): R63.8 - OTHER SYMPTOMS AND SIGNS CONCERNING FOOD AND FLUID INTAKE (7) Pneumonia Assessment/Plan: jennifer rodriguez follow up notaspiration risk npo--peg bc abx f/u cxr PHYSICAL THERAPY--NF
[2017-09-18 07:55] LABS: HEMATOCRIT 41.6 % (35.4-49); HEMOGLOBIN 13.6 GM/dL (11.7-16.9); MCH 29.6 pg (25.7-33.7); MCHC 32.6 g/dl (32.0-35.9); MEAN CELL VOLUME 90.7 fl (80-96); MEAN PLT VOLUME 7.7 fl (7.5-11.1); PLATELET COUNT 404 K/MM3 (134-434); RBC 4.59 M/mm3 (4.00-5.60); RDW 14.2 % (11.9-15.9)
--- NOTE | 2017-09-18 08:29 | PN ---
Progress Note, Physician Chief Complaint: Pt is calm; denies pain/ c/o thirst. History of Present Illness: Pt is an 87-year-old male (b. [place]), with PM history of non-insulin- dependent diabetes, CABG ( reports pt having the procedure ?1998; hx multiple MIs), s/p coronary angiogram 2016 ([place]; per , was told he might need "a pacemaker"), hypertension, dementia (hx primarily given by ), now presents with productive cough with pleuritic chest pain and possibly confusion since last night. Had a low-grade fever for 100.9 this a.m. as per . Able to give some history and only states he has cough with chest pain. Denies sob, body aches, nausea, vomiting, headache, neck pain, abd pain, change to BM or dysuria - Current Medication List Current Medications: Active Medications Acetaminophen (Tylenol Suppository -) 650 mg [place] Q6H PRN PRN Reason: FEVER Last Admin: 09/17/17 20:34 Dose: 650 mg Amlodipine Besylate (Norvasc -) 2.5 mg PO DAILY [facility] Last Admin: 09/17/17 11:22 Dose: 2.5 mg Aspirin (Ecotrin -) 81 mg PO DAILY [facility] Last Admin: 09/17/17 11:21 Dose: 81 mg Atorvastatin Calcium (Lipitor -) 20 mg PO HS [facility] Last Admin: 09/17/17 21:15 Dose: Not Given Digoxin (Lanoxin -) 0.125 mg PO DAILY [facility] Last Admin: 09/17/17 11:22 Dose: 0.125 mg Amino Acids (Clinimix -) 1,000 mls @ 42 mls/hr IV Q24H [facility] Last Admin: 09/17/17 17:55 Dose: 42 mls/hr CEFTRIAXONE 1 G/50 ML PREMIX (Ceftriaxone 1 Gm-D5w Bag) 50 mls @ 100 mls/hr IVPB DAILY [facility] Insulin Aspart (Novolog Vial Sliding Scale -) 1 vial SQ TIDAC [facility] PRN Reason: Protocol Last Admin: 09/18/17 06:01 Dose: 2 units Isosorbide Mononitrate (Imdur -) 30 mg PO DAILY [facility] Last Admin: 09/17/17 11:21 Dose: 30 mg Metoprolol Tartrate (Lopressor -) 12.5 mg PO BID [facility] Last Admin: 09/17/17 21:15 Dose: Not Given Metoprolol Tartrate (Lopressor Injection -) 2.5 mg IVPUSH Q6H PRN PRN Reason: HYPERTENSION Last Admin: 09/17/17 21:32 Dose: 2.5 mg Olanzapine (Zyprexa -) 5 mg PO HS [facility] Last Admin: 09/17/17 21:15 Dose: Not Given Potassium Chloride (K-Dur -) 20 meq PO DAILY [facility] Last Admin: 09/17/17 11:21 Dose: 20 meq - Objective Vital Signs: Vital Signs Temperature 97.6 F 09/18/17 06:00 Pulse Rate 98 H 09/18/17 06:00 Respiratory Rate 22 09/18/17 06:00 Blood Pressure 121/61 09/18/17 06:00 O2 Sat by Pulse Oximetry (%) 92 L 09/17/17 21:00 Constitutional: Yes: Anxious Eyes: Yes: WNL HENT: Yes: WNL Neck: Yes: WNL Cardiovascular: Yes: Pulse Irregular Respiratory: Yes: Diminished Gastrointestinal: Yes: Soft Genitourinary: No: Anuria Musculoskeletal: Yes: Muscle Weakness Extremities: Yes: Cool Edema: No Peripheral Pulses WNL: Yes Integumentary: Yes: WNL Neurological: Yes: Confusion Psychiatric: Yes: Other (dementia) - ....Imaging Chest X-ray: Image Reviewed (infiltrates; no obvious pleural effusion) Problem List - Problems (1) Congestive heart disease Assessment/Plan: BNP 8,765 initially. No JVD. ECHO: normal LVEF CXR: no acute pathology. BUN/Cr, electrolytes, daily weight, Is ands Os. Pt is now swallowing medications. Discontinued digoxin, PO metoprolol, amlodipine. Started IV metoprolol and IV enalapril. Code(s): I50.9 - HEART FAILURE, UNSPECIFIED (2) Coronary artery disease Assessment/Plan: s/p CABG ?1998. s/p coronary angiogram 2016 (f/u results of study: ? coronary stent). TNI 0.17-->0.33-->0.15; CKBM relative index is low. TNI ikely elevated from demand stress from sepsis. No acute STT changes on EKG ECHO: normal LVEF. On ASA and clopidogrel. On metoprolol for BP and HR control; CAD. Code(s): I25.10 - ATHSCL HEART DISEASE OF [place] CORONARY ARTERY W/O ANG PCTRS (3) Influenza A Assessment/Plan: s/p Tamiflu. Code(s): J10.1 - FLU DUE TO OTH IDENT INFLUENZA VIRUS W OTH RESP MANIFEST (4) Sepsis Assessment/Plan: s/p antibiotics.. Code(s): A41.9 - SEPSIS, UNSPECIFIED ORGANISM (5) Renal insufficiency Assessment/Plan: improved; maintain hydration. Code(s): N28.9 - DISORDER OF KIDNEY AND URETER, UNSPECIFIED (6) Leukocytosis Assessment/Plan: improving; off antibiotics. Code(s): D72.829 - ELEVATED WHITE BLOOD CELL COUNT, UNSPECIFIED (7) Hypercholesteremia Assessment/Plan: on atorvastatin; increased to 20 mg daily (LDL 92 mg/dL). Code(s): E78.00 - PURE HYPERCHOLESTEROLEMIA, UNSPECIFIED (8) Dementia Code(s): F03.90 - UNSPECIFIED DEMENTIA WITHOUT BEHAVIORAL DISTURBANCE (9) PSVT (paroxysmal supraventricular tachycardia) Code(s): I47.1 - SUPRAVENTRICULAR TACHYCARDIA (10) Hypomagnesemia Code(s): E83.42 - HYPOMAGNESEMIA
[2017-09-18 08:41] LABS: CHLORIDE 106 mmol/L (98-107); POTASSIUM 4.1 mmol/L (3.5-5.1); SODIUM 145 mmol/L (136-145)
[2017-09-18 08:47] LABS: ALBUMIN 2.5 g/dl (3.4-5.0); ALK PHOS 140 U/L (45-117); ANION GAP 9 (8-16); BILIRUBIN,TOTAL 0.9 mg/dL (0.2-1.0); BLOOD UREA NITROGEN 24 mg/dL (7-18); CALCIUM 8.8 mg/dL (8.5-10.1); CO2 30 mmol/L (21-32); CREATININE 0.9 mg/dL (0.7-1.3); GLUCOSE,RANDOM 214 mg/dL (74-106); SGOT/AST 29 U/L (15-37); SGPT/ALT 24 U/L (12-78)
[2017-09-18] MEDS: CEFTRIAXONE 1 G/50 ML PREMIX 50 ML IVPB SCH (09:00)
[2017-09-18] MEDS ORDERED: METOPROLOL TARTRATE 5 MG/5 ML VIAL IVPUSH PRN (09:05)
[2017-09-18] MEDS: POTASSIUM CHLORIDE TABS 20 MEQ TABLET.ER (FP) PO SCH (09:55)
[2017-09-18] MEDS: ASPIRIN COATED 81 MG TABLET.EC PO SCH (09:55)
[2017-09-18] MEDS: ISOSORBIDE MONONITRATE 30 MG TAB.SR.24H (FP) PO SCH (09:55)
--- NOTE | 2017-09-18 11:08 | PN ---
Progress Note, POWER DISTRIBUTION ENGINEER - Note Progress Note: CXR bilateral LL infiltrates. NPO. Prognosis is poor for functional prognosis. Selected Entries 09/17/17 09/17/17 09/17/17 02:00 06:00 09:15 Breakfast Supper Temperature 98 F 97.7 F 97.7 F 09/17/17 09/17/17 09/17/17 13:57 18:00 20:30 Breakfast Supper Temperature 98.1 F 100.5 F H 101.1 F H 09/17/17 09/17/17 09/17/17 21:34 22:25 22:35 Breakfast Supper NPO Temperature 100.4 F H 99.7 F H 09/18/17 09/18/17 09/18/17 01:12 06:00 10:27 Breakfast NPO Supper Temperature 97.7 F 97.6 F Laboratory Tests 09/17/17 09/18/17 09:20 06:55 WBC 11.3 H 31.0 H* D PEG being considered for next week. Pt is a full code. Consider palliative care.
[2017-09-18 13:20] LABS: PLATELET ESTIMATE ADEQUATE
[2017-09-18] MEDS: ENALAPRILAT DIHYDRATE 1.25 MG/1 ML VIAL IVPB SCH ×2 (16:03→21:53)
[2017-09-18] MEDS ORDERED: PT OWN MED DRAWER 7, Y5N ONE (16:06)
[2017-09-18] MEDS: AMINO ACIDS 4.25%/D5W 1,000 ML IV SCH (17:54)
[2017-09-18] MEDS: ATORVASTATIN CA 20 MG TABLET (FP) PO SCH (21:27)
[2017-09-18] MEDS: OLANZapine 5 MG TABLET PO SCH (21:27)
[2017-09-19] MEDS: ENALAPRILAT DIHYDRATE 1.25 MG/1 ML VIAL IVPB SCH ×4 (03:18→21:18)
[2017-09-19] MEDS: INSULIN SLIDING SCALE (NOVOLOG) 1 VIAL SQ SCH ×3 (06:11→16:52)
[2017-09-19] MEDS: CEFTRIAXONE 1 G/50 ML PREMIX 50 ML IVPB SCH (10:13)
--- NOTE | 2017-09-19 10:43 | PN ---
Progress Note, Physician Chief Complaint: bed railing elevated confused NPO - Current Medication List Current Medications: Active Medications Acetaminophen (Tylenol Suppository -) 650 mg [place] Q6H PRN PRN Reason: FEVER Last Admin: 09/17/17 20:34 Dose: 650 mg Aspirin (Ecotrin -) 81 mg PO DAILY [facility] Last Admin: 09/18/17 09:55 Dose: Not Given Atorvastatin Calcium (Lipitor -) 20 mg PO HS [facility] Last Admin: 09/18/17 21:27 Dose: Not Given Enalaprilat (Vasotec Injection -) 0.625 mg IVPB Q6H-IV [facility] Last Admin: 09/19/17 10:13 Dose: 0.625 mg Amino Acids (Clinimix -) 1,000 mls @ 42 mls/hr IV Q24H [facility] Last Admin: 09/18/17 17:54 Dose: 42 mls/hr CEFTRIAXONE 1 G/50 ML PREMIX (Ceftriaxone 1 Gm-D5w Bag) 50 mls @ 100 mls/hr IVPB DAILY [facility] Last Admin: 09/19/17 10:13 Dose: 100 mls/hr Insulin Aspart (Novolog Vial Sliding Scale -) 1 vial SQ TIDAC [facility] PRN Reason: Protocol Last Admin: 09/19/17 06:11 Dose: Not Given Isosorbide Mononitrate (Imdur -) 30 mg PO DAILY [facility] Last Admin: 09/18/17 09:55 Dose: Not Given Metoprolol Tartrate (Lopressor Injection -) 2.5 mg IVPUSH Q4H PRN PRN Reason: HYPERTENSION Olanzapine (Zyprexa -) 5 mg PO HS [facility] Last Admin: 09/18/17 21:27 Dose: Not Given Potassium Chloride (K-Dur -) 20 meq PO DAILY [facility] Last Admin: 09/18/17 09:55 Dose: Not Given - Objective Vital Signs: Vital Signs Temperature 98.1 F 09/19/17 06:00 Pulse Rate 90 09/19/17 06:00 Respiratory Rate 24 09/19/17 06:00 Blood Pressure 137/73 09/19/17 06:00 O2 Sat by Pulse Oximetry (%) 96 09/18/17 20:58 Constitutional: Yes: Calm Cardiovascular: Yes: Pulse Irregular, S1, S2 Respiratory: Yes: Diminished Gastrointestinal: Yes: Soft Edema: No Labs: CBC, BMP 09/18/17 06:55 09/18/17 06:55 Problem List - Problems (1) Poor fluid intake Assessment/Plan: jennifer rodriguez to see patient NPO Asa on hold for pEG on friday ent consult noted Code(s): R63.8 - OTHER SYMPTOMS AND SIGNS CONCERNING FOOD AND FLUID INTAKE (2) Leukocytosis Assessment/Plan: iv rocephin blood cultures pending RUQ sono shows contracted GB with multiple gall stones] Microbiology 09/11/17 06:15 Urine - Urine Clean Catch Urine Culture - Final NO GROWTH OBTAINED no growth on blood cultures Microbiology 09/18/17 09:05 Blood - Peripheral Venous Blood Culture - Preliminary NO GROWTH OBTAINED AFTER 24 HOURS, INCUBATION TO CONTINUE FOR 4 DAYS. 09/18/17 08:10 Blood - Peripheral Venous Blood Culture - Preliminary NO GROWTH OBTAINED AFTER 24 HOURS, INCUBATION TO CONTINUE FOR 4 DAYS. no fever inc in wbc count will repeat cbc today Code(s): D72.829 - ELEVATED WHITE BLOOD CELL COUNT, UNSPECIFIED (3) Dementia Assessment/Plan: seen by psych started on zyprexa Code(s): F03.90 - UNSPECIFIED DEMENTIA WITHOUT BEHAVIORAL DISTURBANCE (4) Influenza A Assessment/Plan: isolation tamiflu course completed Code(s): J10.1 - FLU DUE TO OTH IDENT INFLUENZA VIRUS W OTH RESP MANIFEST (5) Congestive heart disease Assessment/Plan: echo normal LVEF Code(s): I50.9 - HEART FAILURE, UNSPECIFIED (6) Coronary artery disease Assessment/Plan: not taking oral meds iv julisa awiting peg Code(s): I25.10 - ATHSCL HEART DISEASE OF [place] CORONARY ARTERY W/O ANG PCTRS (7) Elevated troponin Assessment/Plan: trend troponins cardio on board echo done BB ,statin and aspirn Code(s): R74.8 - ABNORMAL LEVELS OF OTHER SERUM ENZYMES
--- NOTE | 2017-09-19 11:05 | PN ---
Progress Note, Physician Chief Complaint: AWAKE, IN BED NO CHEST PAIN OR SOB - Current Medication List Current Medications: Active Medications Acetaminophen (Tylenol Suppository -) 650 mg [place] Q6H PRN PRN Reason: FEVER Last Admin: 09/17/17 20:34 Dose: 650 mg Atorvastatin Calcium (Lipitor -) 20 mg PO HS [facility] Last Admin: 09/18/17 21:27 Dose: Not Given Enalaprilat (Vasotec Injection -) 0.625 mg IVPB Q6H-IV [facility] Last Admin: 09/19/17 10:13 Dose: 0.625 mg Amino Acids (Clinimix -) 1,000 mls @ 42 mls/hr IV Q24H [facility] Last Admin: 09/18/17 17:54 Dose: 42 mls/hr CEFTRIAXONE 1 G/50 ML PREMIX (Ceftriaxone 1 Gm-D5w Bag) 50 mls @ 100 mls/hr IVPB DAILY [facility] Last Admin: 09/19/17 10:13 Dose: 100 mls/hr Insulin Aspart (Novolog Vial Sliding Scale -) 1 vial SQ TIDAC [facility] PRN Reason: Protocol Last Admin: 09/19/17 06:11 Dose: Not Given Isosorbide Mononitrate (Imdur -) 30 mg PO DAILY [facility] Last Admin: 09/18/17 09:55 Dose: Not Given Metoprolol Tartrate (Lopressor Injection -) 2.5 mg IVPUSH Q4H PRN PRN Reason: HYPERTENSION Olanzapine (Zyprexa -) 5 mg PO HS [facility] Last Admin: 09/18/17 21:27 Dose: Not Given Potassium Chloride (K-Dur -) 20 meq PO DAILY [facility] Last Admin: 09/18/17 09:55 Dose: Not Given - Objective Vital Signs: Vital Signs Temperature 98.1 F 09/19/17 06:00 Pulse Rate 90 09/19/17 06:00 Respiratory Rate 24 09/19/17 06:00 Blood Pressure 137/73 09/19/17 06:00 O2 Sat by Pulse Oximetry (%) 96 09/18/17 20:58 Constitutional: Yes: No Distress Eyes: Yes: WNL, Other Neck: Yes: WNL Cardiovascular: Yes: WNL Respiratory: Yes: Diminished, On Nasal O2 Gastrointestinal: Yes: WNL Genitourinary: Yes: WNL Musculoskeletal: Yes: WNL Extremities: Yes: WNL Edema: No Peripheral Pulses WNL: Yes Integumentary: Yes: WNL Wound/Incision: Yes: Clean/Dry Neurological: Yes: Pre-Existing Deficit ...Motor Strength: LLE, RLE Psychiatric: Yes: Other Labs: CBC, BMP 09/18/17 06:55 Problem List - Problems (1) Congestive heart disease Code(s): I50.9 - HEART FAILURE, UNSPECIFIED (2) Coronary artery disease Code(s): I25.10 - ATHSCL HEART DISEASE OF [place] CORONARY ARTERY W/O ANG PCTRS (3) Dementia Code(s): F03.90 - UNSPECIFIED DEMENTIA WITHOUT BEHAVIORAL DISTURBANCE (4) Elevated troponin Code(s): R74.8 - ABNORMAL LEVELS OF OTHER SERUM ENZYMES (5) Hypercholesteremia Code(s): E78.00 - PURE HYPERCHOLESTEROLEMIA, UNSPECIFIED (6) Hypomagnesemia Code(s): E83.42 - HYPOMAGNESEMIA (7) Influenza A Code(s): J10.1 - FLU DUE TO OTH IDENT INFLUENZA VIRUS W OTH RESP MANIFEST (8) Leukocytosis Code(s): D72.829 - ELEVATED WHITE BLOOD CELL COUNT, UNSPECIFIED (9) PSVT (paroxysmal supraventricular tachycardia) Code(s): I47.1 - SUPRAVENTRICULAR TACHYCARDIA (10) Poor fluid intake Code(s): R63.8 - OTHER SYMPTOMS AND SIGNS CONCERNING FOOD AND FLUID INTAKE (11) Renal insufficiency Code(s): N28.9 - DISORDER OF KIDNEY AND URETER, UNSPECIFIED Assessment/Plan ASPIRATION PNEUMONIA WITH LEUKOCYTOSIS GTUBE NEXT WEEK OFF OF PLAVIX GI FOLLOW UP IV ABX NEBS ADVANCED DIRECTIVE
[2017-09-19 11:19] LABS: BASO % 0.1 % (0-2.0); EOS % 0.5 % (0-4.5); HEMATOCRIT 38.8 % (35.4-49); HEMOGLOBIN 12.8 GM/dL (11.7-16.9); LYMPH % 7.6 % (8-40); MCH 29.5 pg (25.7-33.7); MCHC 32.9 g/dl (32.0-35.9); MEAN CELL VOLUME 89.8 fl (80-96); MEAN PLT VOLUME 7.4 fl (7.5-11.1); NEUT % 86.8 % (42.8-82.8); PLATELET COUNT 367 K/MM3 (134-434); RBC 4.32 M/mm3 (4.00-5.60); RDW 13.8 % (11.9-15.9); WHITE BLOOD COUNT 15.3 K/mm3 (4.0-10.0)
[2017-09-19] MEDS: ISOSORBIDE MONONITRATE 30 MG TAB.SR.24H (FP) PO SCH (12:09)
[2017-09-19] MEDS: POTASSIUM CHLORIDE TABS 20 MEQ TABLET.ER (FP) PO SCH (12:09)
--- NOTE | 2017-09-19 12:48 | PN ---
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 Pt remains NPO, due to high aspiration risk.
[2017-09-19] MEDS: ASPIRIN COATED 81 MG TABLET.EC PO SCH (13:49)
[2017-09-19] MEDS: AMINO ACIDS 4.25%/D5W 1,000 ML IV SCH (18:09)
[2017-09-19] MEDS: OLANZapine 5 MG TABLET PO SCH (21:19)
[2017-09-19] MEDS: ATORVASTATIN CA 20 MG TABLET (FP) PO SCH (21:19)
--- NOTE | 2017-09-20 01:35 | PN ---
Progress Note, Physician Chief Complaint: Pt with periods of confusion and agitation. History of Present Illness: Pt is an 87-year-old male (b. [place]), with PM history of non-insulin- dependent diabetes, CABG ( reports pt having the procedure ?1998; hx multiple MIs), s/p coronary angiogram 2016 ([place]; per , was told he might need "a pacemaker"), hypertension, dementia (hx primarily given by ), now presents with productive cough with pleuritic chest pain and possibly confusion since last night. Had a low-grade fever for 100.9 this a.m. as per . Able to give some history and only states he has cough with chest pain. Denies sob, body aches, nausea, vomiting, headache, neck pain, abd pain, change to BM or dysuria - Current Medication List Current Medications: Active Medications Acetaminophen (Tylenol Suppository -) 650 mg [place] Q6H PRN PRN Reason: FEVER Last Admin: 09/17/17 20:34 Dose: 650 mg Atorvastatin Calcium (Lipitor -) 20 mg PO HS [facility] Last Admin: 09/19/17 21:19 Dose: Not Given Enalaprilat (Vasotec Injection -) 0.625 mg IVPB Q6H-IV [facility] Last Admin: 09/19/17 21:18 Dose: 0.625 mg Amino Acids (Clinimix -) 1,000 mls @ 42 mls/hr IV Q24H [facility] Last Admin: 09/19/17 18:09 Dose: 42 mls/hr CEFTRIAXONE 1 G/50 ML PREMIX (Ceftriaxone 1 Gm-D5w Bag) 50 mls @ 100 mls/hr IVPB DAILY [facility] Last Admin: 09/19/17 10:13 Dose: 100 mls/hr Insulin Aspart (Novolog Vial Sliding Scale -) 1 vial SQ TIDAC [facility] PRN Reason: Protocol Last Admin: 09/19/17 16:52 Dose: Not Given Isosorbide Mononitrate (Imdur -) 30 mg PO DAILY [facility] Last Admin: 09/19/17 12:09 Dose: Not Given Metoprolol Tartrate (Lopressor Injection -) 2.5 mg IVPUSH Q4H PRN PRN Reason: HYPERTENSION Olanzapine (Zyprexa -) 5 mg PO HS [facility] Last Admin: 09/19/17 21:19 Dose: Not Given Potassium Chloride (K-Dur -) 20 meq PO DAILY [facility] Last Admin: 09/19/17 12:09 Dose: Not Given - Objective Vital Signs: Vital Signs Temperature 97.6 F 09/19/17 17:37 Pulse Rate 87 09/19/17 17:37 Respiratory Rate 20 09/19/17 17:37 Blood Pressure 136/71 09/19/17 17:37 O2 Sat by Pulse Oximetry (%) 92 L 09/19/17 09:00 Constitutional: Yes: Mild Distress, Thin Eyes: Yes: WNL HENT: Yes: WNL Neck: Yes: WNL Cardiovascular: Yes: Regular Rate and Rhythm, S1 (split) Respiratory: Yes: Regular Gastrointestinal: Yes: Soft Genitourinary: No: Anuria Musculoskeletal: Yes: Muscle Weakness Extremities: Yes: Cool Edema: No Peripheral Pulses WNL: Yes Neurological: Yes: Confusion, Weakness Psychiatric: Yes: Other (dementia) Labs: CBC, BMP 09/19/17 10:40 09/18/17 06:55 Problem List - Problems (1) Congestive heart disease Assessment/Plan: BNP 8,765 initially. No JVD. ECHO: normal LVEF CXR: no acute pathology. BUN/Cr, electrolytes, daily weight, Is ands Os. Pt is again not swallowing pills. Changed to IV metoprolol and enalapril. Code(s): I50.9 - HEART FAILURE, UNSPECIFIED (2) Coronary artery disease Assessment/Plan: s/p CABG ?1998. s/p coronary angiogram 2016 (f/u results of study: ? coronary stent). TNI 0.17-->0.33-->0.15; CKBM relative index is low. TNI ikely elevated from demand stress from sepsis. No acute STT changes on EKG ECHO: normal LVEF. On ASA and clopidogrel. On metoprolol for BP and HR control; CAD. Code(s): I25.10 - ATHSCL HEART DISEASE OF [place] CORONARY ARTERY W/O ANG PCTRS (3) Influenza A Assessment/Plan: s/p Tamiflu. Code(s): J10.1 - FLU DUE TO OTH IDENT INFLUENZA VIRUS W OTH RESP MANIFEST (4) Sepsis Assessment/Plan: s/p antibiotics.. Code(s): A41.9 - SEPSIS, UNSPECIFIED ORGANISM (5) Renal insufficiency Assessment/Plan: improved; maintain hydration. Code(s): N28.9 - DISORDER OF KIDNEY AND URETER, UNSPECIFIED (6) Leukocytosis Assessment/Plan: improving; off antibiotics. Code(s): D72.829 - ELEVATED WHITE BLOOD CELL COUNT, UNSPECIFIED (7) Hypercholesteremia Assessment/Plan: on atorvastatin; increased to 20 mg daily (LDL 92 mg/dL). Code(s): E78.00 - PURE HYPERCHOLESTEROLEMIA, UNSPECIFIED (8) Dementia Code(s): F03.90 - UNSPECIFIED DEMENTIA WITHOUT BEHAVIORAL DISTURBANCE (9) PSVT (paroxysmal supraventricular tachycardia) Assessment/Plan: IV metoprolol around the clock until able to swallow regularly. Keep K 4-4.5, Mg 2-2.3. Code(s): I47.1 - SUPRAVENTRICULAR TACHYCARDIA (10) Hypomagnesemia Assessment/Plan: replete; keep level 2-2.3; keep K+ 4-4.5. Code(s): E83.42 - HYPOMAGNESEMIA
[2017-09-20] MEDS: ENALAPRILAT DIHYDRATE 1.25 MG/1 ML VIAL IVPB SCH ×4 (04:07→22:30)
[2017-09-20] MEDS: INSULIN SLIDING SCALE (NOVOLOG) 1 VIAL SQ SCH ×3 (06:08→16:47)
[2017-09-20 08:14] LABS: HEMATOCRIT 42.7 % (35.4-49); MCH 29.6 pg (25.7-33.7); MCHC 32.8 g/dl (32.0-35.9); MEAN PLT VOLUME 7.9 fl (7.5-11.1); PLATELET COUNT 346 K/MM3 (134-434); RBC 4.75 M/mm3 (4.00-5.60); RDW 14.2 % (11.9-15.9); WHITE BLOOD COUNT 13.7 K/mm3 (4.0-10.0)
[2017-09-20 08:51] LABS: CHLORIDE 106 mmol/L (98-107); POTASSIUM 3.4 mmol/L (3.5-5.1); SODIUM 141 mmol/L (136-145)
--- NOTE | 2017-09-20 08:52 | PN ---
Progress Note, Physician Chief Complaint: Coverage for [employer] TELE: NSR, VPCs History of Present Illness: BP fairly well controlled on IV meds at this time - Current Medication List Current Medications: Active Medications Acetaminophen (Tylenol Suppository -) 650 mg [place] Q6H PRN PRN Reason: FEVER Last Admin: 09/17/17 20:34 Dose: 650 mg Atorvastatin Calcium (Lipitor -) 20 mg PO HS [facility] Last Admin: 09/19/17 21:19 Dose: Not Given Enalaprilat (Vasotec Injection -) 0.625 mg IVPB Q6H-IV [facility] Last Admin: 09/20/17 04:07 Dose: 0.625 mg Amino Acids (Clinimix -) 1,000 mls @ 42 mls/hr IV Q24H [facility] Last Admin: 09/19/17 18:09 Dose: 42 mls/hr CEFTRIAXONE 1 G/50 ML PREMIX (Ceftriaxone 1 Gm-D5w Bag) 50 mls @ 100 mls/hr IVPB DAILY [facility] Last Admin: 09/19/17 10:13 Dose: 100 mls/hr Insulin Aspart (Novolog Vial Sliding Scale -) 1 vial SQ TIDAC [facility] PRN Reason: Protocol Last Admin: 09/20/17 06:08 Dose: Not Given Isosorbide Mononitrate (Imdur -) 30 mg PO DAILY [facility] Last Admin: 09/19/17 12:09 Dose: Not Given Metoprolol Tartrate (Lopressor Injection -) 2.5 mg IVPUSH Q4H PRN PRN Reason: HYPERTENSION Olanzapine (Zyprexa -) 5 mg PO [facility] Last Admin: 09/19/17 21:19 Dose: Not Given Potassium Chloride (K-Dur -) 20 meq PO DAILY [facility] Last Admin: 09/19/17 12:09 Dose: Not Given - Objective Vital Signs: Vital Signs Temperature 97.5 F L 09/20/17 06:00 Pulse Rate 89 09/20/17 06:00 Respiratory Rate 20 09/20/17 06:00 Blood Pressure 151/84 09/20/17 06:00 O2 Sat by Pulse Oximetry (%) 94 L 09/19/17 21:00 Constitutional: Yes: No Distress Cardiovascular: Yes: Regular Rate and Rhythm Respiratory: Yes: Rhonchi Gastrointestinal: Yes: Soft Edema: No Neurological: Yes: Confusion Labs: CBC, BMP 09/20/17 06:45 Laboratory Tests 09/09/17 09/16/17 09/20/17 14:14 20:15 06:45 WBC 13.7 H Hgb 14.0 Plt Count 346 Sodium Potassium Carbon Dioxide Anion Gap BUN Creatinine Digoxin 0.6449 L C.trachomatis Ampl DNA Negative N. gonorrhoeae (AMALIA) Negative 09/20/17 06:45 WBC Hgb Plt Count Sodium Pending Potassium Pending Carbon Dioxide Pending Anion Gap Pending BUN Pending Creatinine Pending Digoxin C.trachomatis Ampl DNA N. gonorrhoeae (AMALIA) - ....Imaging Chest X-ray: Report Reviewed, Image Reviewed EKG: Image Reviewed Assessment/Plan Problems (1) Congestive heart disease Assessment/Plan: BNP 8,765 initially. No JVD. ECHO: normal LVEF CXR: no acute pathology. BUN/Cr, electrolytes, daily weight, Is ands Os. Pt is again not swallowing pills. Changed to IV metoprolol and enalapril. Would not diurese in setting of PNA and +Influenza Code(s): I50.9 - HEART FAILURE, UNSPECIFIED (2) Coronary artery disease Assessment/Plan: s/p CABG ?1998. s/p coronary angiogram 2016 (f/u results of study: ? coronary stent). TNI 0.17-->0.33-->0.15; CKBM relative index is low. TNI ikely elevated from demand stress from sepsis. No acute STT changes on EKG ECHO: normal LVEF. On metoprolol for BP and HR control; CAD. Resume ASA if no medical contraindications Code(s): I25.10 - ATHSCL HEART DISEASE OF [place] CORONARY ARTERY W/O ANG PCTRS (3) Influenza A Assessment/Plan: s/p Tamiflu. Code(s): J10.1 - FLU DUE TO OTH IDENT INFLUENZA VIRUS W OTH RESP MANIFEST (4) Sepsis and PNA Assessment/Plan: s/p antibiotics.. Code(s): A41.9 - SEPSIS, UNSPECIFIED ORGANISM (5) Renal insufficiency Assessment/Plan: improved; maintain hydration. Code(s): N28.9 - DISORDER OF KIDNEY AND URETER, UNSPECIFIED (6) Leukocytosis Assessment/Plan: secondary to PNA, flu Code(s): D72.829 - ELEVATED WHITE BLOOD CELL COUNT, UNSPECIFIED HYPERCHOLESTEROLEMIA, UNSPECIFIED (7) Dementia Code(s): F03.90 - UNSPECIFIED DEMENTIA WITHOUT BEHAVIORAL DISTURBANCE (8) PSVT (paroxysmal supraventricular tachycardia) Assessment/Plan: IV metoprolol around the clock until able to swallow regularly. Keep K 4-4.5, Mg 2-2.3. Code(s): I47.1 - SUPRAVENTRICULAR TACHYCARDIA
[2017-09-20 08:57] LABS: ANION GAP 12 (8-16); BLOOD UREA NITROGEN 24 mg/dL (7-18); CALCIUM 8.2 mg/dL (8.5-10.1); CO2 23 mmol/L (21-32); CREATININE 0.6 mg/dL (0.7-1.3); GLUCOSE,RANDOM 147 mg/dL (74-106)
[2017-09-20] MEDS: CEFTRIAXONE 1 G/50 ML PREMIX 50 ML IVPB SCH (10:03)
[2017-09-20] MEDS: POTASSIUM CHLORIDE TABS 20 MEQ TABLET.ER (FP) PO SCH (10:04)
[2017-09-20] MEDS: ISOSORBIDE MONONITRATE 30 MG TAB.SR.24H (FP) PO SCH (10:04)
--- NOTE | 2017-09-20 13:55 | PN ---
Progress Note, Physician Chief Complaint: AWAKE CONFUSED IN RESTRAINTS - Current Medication List Current Medications: Active Medications Acetaminophen (Tylenol Suppository -) 650 mg [place] Q6H PRN PRN Reason: FEVER Last Admin: 09/17/17 20:34 Dose: 650 mg Atorvastatin Calcium (Lipitor -) 20 mg PO HS [facility] Last Admin: 09/19/17 21:19 Dose: Not Given Enalaprilat (Vasotec Injection -) 0.625 mg IVPB Q6H-IV [facility] Last Admin: 09/20/17 10:03 Dose: 0.625 mg Amino Acids (Clinimix -) 1,000 mls @ 42 mls/hr IV Q24H [facility] Last Admin: 09/19/17 18:09 Dose: 42 mls/hr CEFTRIAXONE 1 G/50 ML PREMIX (Ceftriaxone 1 Gm-D5w Bag) 50 mls @ 100 mls/hr IVPB DAILY [facility] Last Admin: 09/20/17 10:03 Dose: 100 mls/hr Insulin Aspart (Novolog Vial Sliding Scale -) 1 vial SQ TIDAC [facility] PRN Reason: Protocol Last Admin: 09/20/17 11:23 Dose: Not Given Isosorbide Mononitrate (Imdur -) 30 mg PO DAILY [facility] Last Admin: 09/20/17 10:04 Dose: Not Given Metoprolol Tartrate (Lopressor Injection -) 2.5 mg IVPUSH Q4H PRN PRN Reason: HYPERTENSION Olanzapine (Zyprexa -) 5 mg PO HS [facility] Last Admin: 09/19/17 21:19 Dose: Not Given Potassium Chloride (K-Dur -) 20 meq PO DAILY [facility] Last Admin: 09/20/17 10:04 Dose: Not Given - Objective Vital Signs: Vital Signs Temperature 97.7 F 09/20/17 09:56 Pulse Rate 99 H 09/20/17 09:56 Respiratory Rate 19 09/20/17 09:56 Blood Pressure 153/65 09/20/17 09:56 O2 Sat by Pulse Oximetry (%) 96 09/20/17 09:56 Constitutional: Yes: No Distress Eyes: Yes: WNL HENT: Yes: WNL, Tonsillar Exudate Cardiovascular: Yes: WNL Respiratory: Yes: WNL Gastrointestinal: Yes: WNL Genitourinary: Yes: Incontinence Musculoskeletal: Yes: Muscle Weakness Extremities: Yes: WNL Edema: No Peripheral Pulses WNL: Yes Integumentary: Yes: WNL Wound/Incision: Yes: Clean/Dry Neurological: Yes: Confusion ...Motor Strength: LLE, RLE Psychiatric: Yes: Other Labs: CBC, BMP 09/20/17 06:45 09/20/17 06:45 Problem List - Problems (1) Congestive heart disease Code(s): I50.9 - HEART FAILURE, UNSPECIFIED (2) Coronary artery disease Code(s): I25.10 - ATHSCL HEART DISEASE OF [place] CORONARY ARTERY W/O ANG PCTRS (3) Dementia Code(s): F03.90 - UNSPECIFIED DEMENTIA WITHOUT BEHAVIORAL DISTURBANCE (4) Elevated troponin Code(s): R74.8 - ABNORMAL LEVELS OF OTHER SERUM ENZYMES (5) Hypercholesteremia Code(s): E78.00 - PURE HYPERCHOLESTEROLEMIA, UNSPECIFIED (6) Hypomagnesemia Code(s): E83.42 - HYPOMAGNESEMIA (7) Influenza A Code(s): J10.1 - FLU DUE TO OTH IDENT INFLUENZA VIRUS W OTH RESP MANIFEST (8) Leukocytosis Code(s): D72.829 - ELEVATED WHITE BLOOD CELL COUNT, UNSPECIFIED (9) PSVT (paroxysmal supraventricular tachycardia) Code(s): I47.1 - SUPRAVENTRICULAR TACHYCARDIA (10) Poor fluid intake Code(s): R63.8 - OTHER SYMPTOMS AND SIGNS CONCERNING FOOD AND FLUID INTAKE (11) Renal insufficiency Code(s): N28.9 - DISORDER OF KIDNEY AND URETER, UNSPECIFIED Assessment/Plan ASPIRATION PNEUMONIA WITH LEUKOCYTOSIS GTUBE NEXT WEEK OFF OF PLAVIX GI FOLLOW UP IV ABX NEBS ADVANCED DIRECTIVE
[2017-09-20] MEDS ORDERED: POTASSIUM CHLORIDE 10 MEQ in SODIUM CHLORIDE 100 ML IVPB SCH (15:00)
[2017-09-20] MEDS ORDERED: INSULIN (NOVOLOG) ASPART 100 UNITS/ML 10ML VIAL ONE (16:29)
[2017-09-20] MEDS: AMINO ACIDS 4.25%/D5W 1,000 ML IV SCH (17:49)
[2017-09-20] MEDS: OLANZapine 5 MG TABLET PO SCH (23:01)
[2017-09-20] MEDS: ATORVASTATIN CA 20 MG TABLET (FP) PO SCH (23:01)
[2017-09-21] MEDS: ENALAPRILAT DIHYDRATE 1.25 MG/1 ML VIAL IVPB SCH ×4 (03:40→22:05)
[2017-09-21] MEDS: INSULIN SLIDING SCALE (NOVOLOG) 1 VIAL SQ SCH ×3 (06:05→16:45)
[2017-09-21 08:24] LABS: ANION GAP 9 (8-16); BLOOD UREA NITROGEN 25 mg/dL (7-18); CHLORIDE 102 mmol/L (98-107); CO2 28 mmol/L (21-32); CREATININE 0.7 mg/dL (0.7-1.3); GLUCOSE,RANDOM 163 mg/dL (74-106); MAGNESIUM 1.8 mg/dL (1.8-2.4); POTASSIUM 3.5 mmol/L (3.5-5.1); SODIUM 139 mmol/L (136-145)
[2017-09-21 08:56] LABS: HEMATOCRIT 43.9 % (35.4-49); HEMOGLOBIN 14.3 GM/dL (11.7-16.9); MCH 29.4 pg (25.7-33.7); MCHC 32.7 g/dl (32.0-35.9); MEAN PLT VOLUME 7.4 fl (7.5-11.1); PLATELET COUNT 393 K/MM3 (134-434); RBC 4.88 M/mm3 (4.00-5.60); RDW 13.9 % (11.9-15.9); WHITE BLOOD COUNT 11.2 K/mm3 (4.0-10.0)
--- NOTE | 2017-09-21 09:35 | PN ---
Progress Note, Physician Chief Complaint: COVERAGE FOR MAS[facility] NO ACUTE ISSUES THIS AM TELE: NSR VPCs. - Current Medication List Current Medications: Active Medications Acetaminophen (Tylenol Suppository -) 650 mg [place] Q6H PRN PRN Reason: FEVER Last Admin: 09/17/17 20:34 Dose: 650 mg Atorvastatin Calcium (Lipitor -) 20 mg PO HS [facility] Last Admin: 09/20/17 23:01 Dose: Not Given Enalaprilat (Vasotec Injection -) 0.625 mg IVPB Q6H-IV [facility] Last Admin: 09/21/17 03:40 Dose: 0.625 mg Amino Acids (Clinimix -) 1,000 mls @ 42 mls/hr IV Q24H [facility] Last Admin: 09/20/17 17:49 Dose: 42 mls/hr CEFTRIAXONE 1 G/50 ML PREMIX (Ceftriaxone 1 Gm-D5w Bag) 50 mls @ 100 mls/hr IVPB DAILY [facility] Last Admin: 09/20/17 10:03 Dose: 100 mls/hr Insulin Aspart (Novolog Vial Sliding Scale -) 1 vial SQ TIDAC [facility] PRN Reason: Protocol Last Admin: 09/21/17 06:05 Dose: Not Given Isosorbide Mononitrate (Imdur -) 30 mg PO DAILY [facility] Last Admin: 09/20/17 10:04 Dose: Not Given Metoprolol Tartrate (Lopressor Injection -) 2.5 mg IVPUSH Q4H PRN PRN Reason: HYPERTENSION Olanzapine (Zyprexa -) 5 mg PO HS [facility] Last Admin: 09/20/17 23:01 Dose: Not Given Potassium Chloride (K-Dur -) 20 meq PO DAILY [facility] Last Admin: 09/20/17 10:04 Dose: Not Given - Objective Vital Signs: Vital Signs Temperature 97.8 F 09/21/17 05:55 Pulse Rate 87 09/21/17 05:55 Respiratory Rate 20 09/21/17 05:55 Blood Pressure 136/77 09/21/17 05:55 O2 Sat by Pulse Oximetry (%) 96 09/20/17 22:00 Constitutional: Yes: No Distress, Calm Cardiovascular: Yes: Regular Rate and Rhythm Respiratory: Yes: CTA Bilaterally (no rales) Gastrointestinal: Yes: Soft Edema: No Neurological: Yes: Alert, Oriented Labs: CBC, BMP 09/21/17 06:15 09/21/17 06:15 - ....Imaging EKG: Image Reviewed Assessment/Plan Problems (1) Congestive heart disease Assessment/Plan: BNP 8,765 initially No JVD. ECHO: normal LVEF CXR: no acute pathology. BUN/Cr, electrolytes, daily weight, Is ands Os. Pt is again not swallowing pills. Changed to IV metoprolol and enalapril. Would not diurese in setting of PNA and +Influenza Code(s): I50.9 - HEART FAILURE, UNSPECIFIED (2) Coronary artery disease Assessment/Plan: s/p CABG ?1998. s/p coronary angiogram 2016 (f/u results of study: ? coronary stent). TNI 0.17-->0.33-->0.15; CKBM relative index is low. TNI ikely elevated from demand stress from sepsis. No acute STT changes on EKG ECHO: normal LVEF. On metoprolol for BP and HR control; CAD. Resume ASA if no medical contraindications Code(s): I25.10 - ATHSCL HEART DISEASE OF [place] CORONARY ARTERY W/O ANG PCTRS (3) Influenza A Assessment/Plan: s/p Tamiflu. Code(s): J10.1 - FLU DUE TO OTH IDENT INFLUENZA VIRUS W OTH RESP MANIFEST (4) Sepsis and PNA Assessment/Plan: s/p antibiotics.. Code(s): A41.9 - SEPSIS, UNSPECIFIED ORGANISM (5) Renal insufficiency Assessment/Plan: improved; maintain hydration. Code(s): N28.9 - DISORDER OF KIDNEY AND URETER, UNSPECIFIED (6) Leukocytosis Assessment/Plan: secondary to PNA, flu Code(s): D72.829 - ELEVATED WHITE BLOOD CELL COUNT, UNSPECIFIED HYPERCHOLESTEROLEMIA, UNSPECIFIED (7) Dementia Code(s): F03.90 - UNSPECIFIED DEMENTIA WITHOUT BEHAVIORAL DISTURBANCE (8) PSVT (paroxysmal supraventricular tachycardia) Assessment/Plan: IV metoprolol around the clock until able to swallow regularly. Keep K 4-4.5, Mg 2-2.3. Code(s): I47.1 - SUPRAVENTRICULAR TACHYCARDIA
[2017-09-21] MEDS: CEFTRIAXONE 1 G/50 ML PREMIX 50 ML IVPB SCH (09:53)
[2017-09-21] MEDS: ISOSORBIDE MONONITRATE 30 MG TAB.SR.24H (FP) PO SCH (09:54)
[2017-09-21] MEDS: POTASSIUM CHLORIDE TABS 20 MEQ TABLET.ER (FP) PO SCH (09:54)
--- NOTE | 2017-09-21 13:21 | PN ---
Progress Note, Physician Chief Complaint: ASLEEP COMFORTABLE RESTRAINTS FOR SAFETY - Current Medication List Current Medications: Active Medications Acetaminophen (Tylenol Suppository -) 650 mg [place] Q6H PRN PRN Reason: FEVER Last Admin: 09/17/17 20:34 Dose: 650 mg Atorvastatin Calcium (Lipitor -) 20 mg PO HS [facility] Last Admin: 09/20/17 23:01 Dose: Not Given Enalaprilat (Vasotec Injection -) 0.625 mg IVPB Q6H-IV [facility] Last Admin: 09/21/17 09:54 Dose: 0.625 mg Amino Acids (Clinimix -) 1,000 mls @ 42 mls/hr IV Q24H [facility] Last Admin: 09/20/17 17:49 Dose: 42 mls/hr CEFTRIAXONE 1 G/50 ML PREMIX (Ceftriaxone 1 Gm-D5w Bag) 50 mls @ 100 mls/hr IVPB DAILY [facility] Last Admin: 09/21/17 09:53 Dose: 100 mls/hr Insulin Aspart (Novolog Vial Sliding Scale -) 1 vial SQ TIDAC [facility] PRN Reason: Protocol Last Admin: 09/21/17 11:34 Dose: Not Given Isosorbide Mononitrate (Imdur -) 30 mg PO DAILY [facility] Last Admin: 09/21/17 09:54 Dose: Not Given Metoprolol Tartrate (Lopressor Injection -) 2.5 mg IVPUSH Q4H PRN PRN Reason: HYPERTENSION Olanzapine (Zyprexa -) 5 mg PO HS [facility] Last Admin: 09/20/17 23:01 Dose: Not Given Potassium Chloride (K-Dur -) 20 meq PO DAILY [facility] Last Admin: 09/21/17 09:54 Dose: Not Given - Objective Vital Signs: Vital Signs Temperature 97.6 F 09/21/17 13:13 Pulse Rate 99 H 09/21/17 13:13 Respiratory Rate 22 09/21/17 13:13 Blood Pressure 134/87 09/21/17 13:13 O2 Sat by Pulse Oximetry (%) 96 09/21/17 09:52 Constitutional: Yes: No Distress Eyes: Yes: WNL HENT: Yes: WNL Neck: Yes: WNL Cardiovascular: Yes: WNL Respiratory: Yes: WNL Gastrointestinal: Yes: WNL Genitourinary: Yes: Incontinence Musculoskeletal: Yes: Muscle Weakness Extremities: Yes: WNL Edema: No Peripheral Pulses WNL: Yes Integumentary: Yes: WNL Wound/Incision: Yes: Clean/Dry Neurological: Yes: Confusion ...Motor Strength: LLE, RLE Psychiatric: Yes: Other Labs: CBC, BMP 09/21/17 06:15 09/21/17 06:15 Problem List - Problems (1) Congestive heart disease Code(s): I50.9 - HEART FAILURE, UNSPECIFIED (2) Coronary artery disease Code(s): I25.10 - ATHSCL HEART DISEASE OF [place] CORONARY ARTERY W/O ANG PCTRS (3) Dementia Code(s): F03.90 - UNSPECIFIED DEMENTIA WITHOUT BEHAVIORAL DISTURBANCE (4) Elevated troponin Code(s): R74.8 - ABNORMAL LEVELS OF OTHER SERUM ENZYMES (5) Hypercholesteremia Code(s): E78.00 - PURE HYPERCHOLESTEROLEMIA, UNSPECIFIED (6) Hypomagnesemia Code(s): E83.42 - HYPOMAGNESEMIA (7) Influenza A Code(s): J10.1 - FLU DUE TO OTH IDENT INFLUENZA VIRUS W OTH RESP MANIFEST (8) Leukocytosis Code(s): D72.829 - ELEVATED WHITE BLOOD CELL COUNT, UNSPECIFIED (9) PSVT (paroxysmal supraventricular tachycardia) Code(s): I47.1 - SUPRAVENTRICULAR TACHYCARDIA (10) Poor fluid intake Code(s): R63.8 - OTHER SYMPTOMS AND SIGNS CONCERNING FOOD AND FLUID INTAKE (11) Renal insufficiency Code(s): N28.9 - DISORDER OF KIDNEY AND URETER, UNSPECIFIED Assessment/Plan ASPIRATION PNEUMONIA WITH LEUKOCYTOSIS GTUBE NEXT WEEK OFF OF PLAVIX GI FOLLOW UP HEPARIN SQ DVT PROPHYLAXIS IV ABX NEBS ADVANCED DIRECTIVE
[2017-09-21] MEDS ORDERED: KCL 10 MEQ IVPB 10 MEQ/100 ML INFUS.BAG IVPB SCH (13:30)
[2017-09-21] MEDS: AMINO ACIDS 4.25%/D5W 1,000 ML IV SCH (16:42)
[2017-09-21] MEDS ORDERED: POTASSIUM CHLORIDE 10 MEQ in SODIUM CHLORIDE 100 ML IVPB ONE (16:45)
[2017-09-21] MEDS ORDERED: POTASSIUM ACETATE 10 MEQ in SODIUM CHLORIDE 100 ML IVPB ONE (16:45)
--- NOTE | 2017-09-21 21:11 | HOSP ---
Subjective - Review of Symptoms Events since last encounter: Notified by Rosa SHARP patient's diaper has been dry. Bladder scan shows 750cc's. Ordered thurman. Put out 1,000cc's. Send UA & UC. Physical Examination Vital Signs: Vital Signs Temperature 97.6 F 09/21/17 13:13 Pulse Rate 99 H 09/21/17 13:13 Respiratory Rate 22 09/21/17 13:13 Blood Pressure 134/87 09/21/17 13:13 O2 Sat by Pulse Oximetry (%) 96 09/21/17 09:52 Labs: CBC, BMP 09/21/17 06:15 09/21/17 06:15
[2017-09-21] MEDS: OLANZapine 5 MG TABLET PO SCH (22:04)
[2017-09-21] MEDS: HEPARIN NA (PORCINE) 5,000 UNITS/ML 1ML VIAL SQ SCH (22:04)
[2017-09-21] MEDS: ATORVASTATIN CA 20 MG TABLET (FP) PO SCH (22:04)
[2017-09-22 01:41] LABS: URINE APPEARANCE CLEAR; URINE BILIRUBIN NEGATIVE (NEGATIVE); URINE BLOOD NEGATIVE (NEGATIVE); URINE COLOR YELLOW; URINE GLUCOSE (UA) NEGATIVE (NEGATIVE); URINE KETONE NEGATIVE (NEGATIVE); URINE LEUK ESTERASE NEGATIVE (NEGATIVE); URINE NITRITE NEGATIVE (NEGATIVE); URINE UROBILINOGEN NEGATIVE mg/dL (0.2-1.0)
[2017-09-22 01:44] LABS: URINE PROTEIN 1+ (NEGATIVE)
[2017-09-22 01:45] LABS: URINE HYALINE CAST 1 /lpf; URINE MUCUS RARE
[2017-09-22] MEDS: ENALAPRILAT DIHYDRATE 1.25 MG/1 ML VIAL IVPB SCH ×4 (03:19→22:12)
[2017-09-22] MEDS: INSULIN SLIDING SCALE (NOVOLOG) 1 VIAL SQ SCH ×3 (06:00→16:31)
[2017-09-22 06:40] LABS: BASO % 0.4 % (0-2.0); EOS % 2.1 % (0-4.5); HEMOGLOBIN 12.9 GM/dL (11.7-16.9); LYMPH % 10.3 % (8-40); MCH 30.1 pg (25.7-33.7); MCHC 33.9 g/dl (32.0-35.9); MEAN CELL VOLUME 88.8 fl (80-96); MEAN PLT VOLUME 7.9 fl (7.5-11.1); MONO % 7.6 % (3.8-10.2); NEUT % 79.6 % (42.8-82.8); PLATELET COUNT 410 K/MM3 (134-434); RBC 4.28 M/mm3 (4.00-5.60); RDW 14.1 % (11.9-15.9); WHITE BLOOD COUNT 11.4 K/mm3 (4.0-10.0)
[2017-09-22 06:53] LABS: INR 1.18 (0.82-1.09); PROTHROMBIN TIME (PATIENT) 13.3 SEC (9.98-11.88)
[2017-09-22 06:58] LABS: ALBUMIN 2.4 g/dl (3.4-5.0); ANION GAP 8 (8-16); BLOOD UREA NITROGEN 20 mg/dL (7-18); CALCIUM 7.9 mg/dL (8.5-10.1); CHLORIDE 102 mmol/L (98-107); CO2 29 mmol/L (21-32); CREATININE 0.6 mg/dL (0.7-1.3); GLUCOSE,RANDOM 164 mg/dL (74-106); MAGNESIUM 1.8 mg/dL (1.8-2.4); POTASSIUM 3.4 mmol/L (3.5-5.1); SGOT/AST 34 U/L (15-37); SGPT/ALT 28 U/L (12-78); SODIUM 139 mmol/L (136-145); TOT PROT 6.5 g/dl (6.4-8.2)
[2017-09-22 06:59] LABS: ALK PHOS 173 U/L (45-117); BILIRUBIN,TOTAL 0.7 mg/dL (0.2-1.0)
[2017-09-22] MEDS: HEPARIN NA (PORCINE) 5,000 UNITS/ML 1ML VIAL SQ SCH ×2 (10:02→22:12)
[2017-09-22] MEDS: CEFTRIAXONE 1 G/50 ML PREMIX 50 ML IVPB SCH (10:03)
[2017-09-22] MEDS: ISOSORBIDE MONONITRATE 30 MG TAB.SR.24H (FP) PO SCH (10:10)
[2017-09-22] MEDS: POTASSIUM CHLORIDE TABS 20 MEQ TABLET.ER (FP) PO SCH (10:10)
--- NOTE | 2017-09-22 10:40 | PN ---
Progress Note, Physician Chief Complaint: awaiting for PEG placement overnight Thurman cath placed bc of minimal urine output bladder sono showed urinary retention thurman placed - Current Medication List Current Medications: Active Medications Acetaminophen (Tylenol Suppository -) 650 mg [place] Q6H PRN PRN Reason: FEVER Last Admin: 09/17/17 20:34 Dose: 650 mg Atorvastatin Calcium (Lipitor -) 20 mg PO HS [facility] Last Admin: 09/21/17 22:04 Dose: Not Given Enalaprilat (Vasotec Injection -) 0.625 mg IVPB Q6H-IV [facility] Last Admin: 09/22/17 10:09 Dose: 0.625 mg Heparin Sodium (Porcine) (Heparin -) 5,000 unit SQ BID [facility] Last Admin: 09/22/17 10:02 Dose: 5,000 unit Amino Acids (Clinimix -) 1,000 mls @ 42 mls/hr IV Q24H [facility] Last Admin: 09/21/17 16:42 Dose: 42 mls/hr CEFTRIAXONE 1 G/50 ML PREMIX (Ceftriaxone 1 Gm-D5w Bag) 50 mls @ 100 mls/hr IVPB DAILY [facility] Last Admin: 09/22/17 10:03 Dose: 100 mls/hr Insulin Aspart (Novolog Vial Sliding Scale -) 1 vial SQ TIDAC [facility] PRN Reason: Protocol Last Admin: 09/22/17 06:00 Dose: Not Given Isosorbide Mononitrate (Imdur -) 30 mg PO DAILY [facility] Last Admin: 09/22/17 10:10 Dose: Not Given Metoprolol Tartrate (Lopressor Injection -) 2.5 mg IVPUSH Q4H PRN PRN Reason: HYPERTENSION Olanzapine (Zyprexa -) 5 mg PO HS [facility] Last Admin: 09/21/17 22:04 Dose: Not Given Potassium Chloride (K-Dur -) 20 meq PO DAILY [facility] Last Admin: 09/22/17 10:10 Dose: Not Given - Objective Vital Signs: Vital Signs Temperature 97.5 F L 09/22/17 06:00 Pulse Rate 86 09/22/17 06:00 Respiratory Rate 20 09/22/17 06:00 Blood Pressure 141/82 09/22/17 06:00 O2 Sat by Pulse Oximetry (%) 97 09/21/17 21:00 Constitutional: Yes: Calm, Thin Cardiovascular: Yes: Regular Rate and Rhythm, S1, S2 Respiratory: Yes: CTA Bilaterally Gastrointestinal: Yes: Normal Bowel Sounds, Soft Genitourinary: Yes: Thurman Present Labs: CBC, BMP 09/22/17 05:35 09/22/17 05:35 INR, PTT INR 1.18 (0.82-1.09) H 09/22/17 05:35 Problem List - Problems (1) Poor fluid intake Assessment/Plan: jennifer rodriguez to see patient NPO Asa on hold for pEG on friday ent consult noted (2) Leukocytosis Assessment/Plan: iv rocephin blood cultures pending RUQ sono shows contracted GB with multiple gall stones] Microbiology 09/11/17 06:15 Urine - Urine Clean Catch Urine Culture - Final NO GROWTH OBTAINED no growth on blood cultures Microbiology 09/18/17 09:05 Blood - Peripheral Venous Blood Culture - Preliminary NO GROWTH OBTAINED AFTER 24 HOURS, INCUBATION TO CONTINUE FOR 4 DAYS. 09/18/17 08:10 Blood - Peripheral Venous Blood Culture - Preliminary NO GROWTH OBTAINED AFTER 24 HOURS, INCUBATION TO CONTINUE FOR 4 DAYS. Code(s): D72.829 - ELEVATED WHITE BLOOD CELL COUNT, UNSPECIFIED (3) Dementia Assessment/Plan: seen by psych started on zyprexa Code(s): F03.90 - UNSPECIFIED DEMENTIA WITHOUT BEHAVIORAL DISTURBANCE (4) Influenza A Assessment/Plan: isolation tamiflu course completed Code(s): J10.1 - FLU DUE TO OTH IDENT INFLUENZA VIRUS W OTH RESP MANIFEST (5) Congestive heart disease Assessment/Plan: echo normal LVEF Code(s): I50.9 - HEART FAILURE, UNSPECIFIED (6) Coronary artery disease Assessment/Plan: not taking oral meds iv meds aspirin on hold for peg awaiting peg Code(s): I25.10 - ATHSCL HEART DISEASE OF [place] CORONARY ARTERY W/O ANG PCTRS (7) Elevated troponin Assessment/Plan: trend troponins- downward cardio on board echo done BB ,statin aspirin on hold for peg Code(s): R74.8 - ABNORMAL LEVELS OF OTHER SERUM ENZYMES
--- NOTE | 2017-09-22 12:25 | PN ---
Progress Note, Physician History of Present Illness: 87-year-old male (b. [place]), with PMhistory of dyt-qzopfsn-hnlywxeni diabetes, CABG ( reports pt having the procedure ?1998; hx multiple MIs), s/ p coronary angiogram 2016 ([place]; per , was told he might need "a pacemaker"), hypertension, dementia (hx primarily given by ), now presents with productive cough with pleuritic chest pain and possibly confusion since last night. Had a low-grade fever for 100.9 this a.m. as per . Able to give some history and only states he has cough with chest pain. Denies sob, body aches, nausea, vomiting, headache, neck pain, abd pain, change to BM or dysuria - Current Medication List Current Medications: Active Medications Acetaminophen (Tylenol Suppository -) 650 mg [place] Q6H PRN PRN Reason: FEVER Last Admin: 09/17/17 20:34 Dose: 650 mg Atorvastatin Calcium (Lipitor -) 20 mg PO HS [facility] Last Admin: 09/21/17 22:04 Dose: Not Given Enalaprilat (Vasotec Injection -) 0.625 mg IVPB Q6H-IV [facility] Last Admin: 09/22/17 10:09 Dose: 0.625 mg Heparin Sodium (Porcine) (Heparin -) 5,000 unit SQ BID [facility] Last Admin: 09/22/17 10:02 Dose: 5,000 unit Amino Acids (Clinimix -) 1,000 mls @ 42 mls/hr IV Q24H [facility] Last Admin: 09/21/17 16:42 Dose: 42 mls/hr CEFTRIAXONE 1 G/50 ML PREMIX (Ceftriaxone 1 Gm-D5w Bag) 50 mls @ 100 mls/hr IVPB DAILY [facility] Last Admin: 09/22/17 10:03 Dose: 100 mls/hr Insulin Aspart (Novolog Vial Sliding Scale -) 1 vial SQ TIDAC [facility] PRN Reason: Protocol Last Admin: 09/22/17 12:09 Dose: Not Given Isosorbide Mononitrate (Imdur -) 30 mg PO DAILY [facility] Last Admin: 09/22/17 10:10 Dose: Not Given Metoprolol Tartrate (Lopressor Injection -) 2.5 mg IVPUSH Q4H PRN PRN Reason: HYPERTENSION Olanzapine (Zyprexa -) 5 mg PO HS [facility] Last Admin: 09/21/17 22:04 Dose: Not Given Potassium Chloride (K-Dur -) 20 meq PO DAILY [facility] Last Admin: 09/22/17 10:10 Dose: Not Given - Objective Vital Signs: Vital Signs Temperature 97.2 F L 09/22/17 10:00 Pulse Rate 93 H 09/22/17 10:00 Respiratory Rate 20 09/22/17 10:00 Blood Pressure 114/65 09/22/17 10:00 O2 Sat by Pulse Oximetry (%) 94 L 09/22/17 09:00 Eyes: Yes: WNL, Conjunctiva Clear, EOM Intact HENT: Yes: WNL, Atraumatic, Normocephalic Neck: Yes: WNL, Supple, Trachea Midline Cardiovascular: Yes: WNL, Regular Rate and Rhythm Respiratory: Yes: WNL, Regular, CTA Bilaterally Gastrointestinal: Yes: WNL, Normal Bowel Sounds Genitourinary: Yes: WNL Musculoskeletal: Yes: WNL Extremities: Yes: WNL Edema: No Integumentary: Yes: WNL Neurological: Yes: Alert ...Motor Strength: WNL Psychiatric: Yes: WNL Labs: CBC, BMP 09/22/17 05:35 09/22/17 05:35 INR, PTT INR 1.18 (0.82-1.09) H 09/22/17 05:35 Assessment/Plan Problems (1) Congestive heart disease Assessment/Plan: BNP 8,765 initially No JVD. ECHO: normal LVEF CXR: no acute pathology. BUN/Cr, electrolytes, daily weight, Is ands Os. Pt is again not swallowing pills. Changed to IV metoprolol and enalapril. Would not diurese in setting of PNA and +Influenza Code(s): I50.9 - HEART FAILURE, UNSPECIFIED (2) Coronary artery disease Assessment/Plan: s/p CABG ?1998. s/p coronary angiogram 2016 (f/u results of study: ? coronary stent). TNI 0.17-->0.33-->0.15; CKBM relative index is low. TNI ikely elevated from demand stress from sepsis. No acute STT changes on EKG ECHO: normal LVEF. On metoprolol for BP and HR control; CAD. Resume ASA if no medical contraindications Code(s): I25.10 - ATHSCL HEART DISEASE OF [place] CORONARY ARTERY W/O ANG PCTRS (3) Influenza A Assessment/Plan: s/p Tamiflu. Code(s): J10.1 - FLU DUE TO OTH IDENT INFLUENZA VIRUS W OTH RESP MANIFEST (4) Sepsis and PNA Assessment/Plan: s/p antibiotics.. Code(s): A41.9 - SEPSIS, UNSPECIFIED ORGANISM (5) Renal insufficiency Assessment/Plan: improved; maintain hydration. Code(s): N28.9 - DISORDER OF KIDNEY AND URETER, UNSPECIFIED (6) Leukocytosis Assessment/Plan: secondary to PNA, flu Code(s): D72.829 - ELEVATED WHITE BLOOD CELL COUNT, UNSPECIFIED HYPERCHOLESTEROLEMIA, UNSPECIFIED (7) Dementia Code(s): F03.90 - UNSPECIFIED DEMENTIA WITHOUT BEHAVIORAL DISTURBANCE (8) PSVT (paroxysmal supraventricular tachycardia) Assessment/Plan: IV metoprolol around the clock until able to swallow regularly. Keep K 4-4.5, Mg 2-2.3. Code(s): I47.1 - SUPRAVENTRICULAR TACHYCARDIA
[2017-09-22] MEDS ORDERED: ETOMIDATE 20 MG/10 ML AMPUL IVPUSH ONE (12:33)
[2017-09-22] MEDS ORDERED: PROPOFOL 20 ML ONE (12:33)
--- NOTE | 2017-09-22 12:55 | PROC ---
Endoscopy Procedure Endoscopy procedure completed. Please see scanned procedure report. New PEG
--- NOTE | 2017-09-22 16:02 | CON.GU ---
Consult Consult Specialty:: urology Referred by:: Mynor Reason for Consultation:: urinary retention - History of Present Illness History of Present Illness: Patient is a poor historian who is s/p a PEG. Patient is unable to give a history. The patient was found distended and a catheter was placed. 800 cc of urine was drained. There is no indication of previous urologic surgery or previous episodes of urinary retention. 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 Cardio/Vascular: Yes: CAD, HTN, [place] Psych: Yes: Other - Past Surgical History Past Surgical History: Yes: CABG Additional Surgical History: coronary angiogram 2016; reportedly did not require stent or other PCI - Smoking History Smoking history: Never smoked Have you smoked in the past 12 months: No - Social History Usual Living Arrangement: With Spouse ADL: Family Assistance Home Medications - Allergies Allergies/Adverse Reactions: Allergies Allergy/AdvReac Type Severity Reaction Status Date / Time No Known Allergies Allergy Verified 09/09/17 10:47 - Home Medications Home Medications: Ambulatory Orders Amlodipine Besylate [Norvasc -] 2.5 mg PO DAILY 09/09/17 Clopidogrel Bisulfate [Clopidogrel] 75 mg PO DAILY 09/09/17 Digoxin [Lanoxin -] 0.125 mg PO DAILY 09/09/17 Isosorbide Mononitrate [Imdur -] 30 mg PO DAILY 09/09/17 Acetaminophen [Tylenol .Regular Strength -] 650 mg PO Q6H PRN tablet 09/17/17 Aspirin Coated [Ecotrin -] 81 mg PO DAILY tablet.ec 09/17/17 Insulin Sliding Scale [Novolog Vial Sliding Scale -] 1 vial SQ TIDAC units Metoprolol Tartrate [Lopressor -] 12.5 mg PO BID tablet 09/17/17 Olanzapine [Zyprexa -] 5 mg PO HS tablet 09/17/17 Potassium Chloride [K-Dur -] 20 meq PO DAILY tablet.er 09/17/17 Physical Exam- Vital Signs: Vital Signs Temperature 97.4 F L 09/22/17 15:04 Pulse Rate 93 H 09/22/17 15:04 Respiratory Rate 20 09/22/17 15:04 Blood Pressure 123/66 09/22/17 15:04 O2 Sat by Pulse Oximetry (%) 95 09/22/17 13:31 Constitutional: Yes: Anxious, [place] Eyes: Yes: Conjunctiva Clear, EOM Intact HENT: Yes: WNL, Atraumatic, Normocephalic Neck: Yes: WNL, Supple, Trachea Midline Cardiovascular: Yes: Regular Rate and Rhythm Gastrointestinal: Yes: WNL (s/p peg placement) Renal/: Yes: WNL, Thurman Present (clear urine draining from thurman) Kidneys: Yes: WNL Pelvis: Yes: WNL, Bladder Non Palpable, Other Testicles: Yes: Other Penis: Yes: WNL Prostate Exam: Yes: Asymmetrical, Swollen Labs: CBC, BMP 09/22/17 05:35 09/22/17 05:35 Imaging - Results Ultrasound: Report Reviewed (large right renal cyst) Assessment/Plan imp bph urinary retention plan start patient on flomax 0.4 mg daily. This may be difficulty (since flomax is a 24 hr time release) with the PEG. if not possible consider Dosazosin 8 mg daily if this is OK with cardiology. The tablet may be easier to put down the PEG.
[2017-09-22] MEDS: AMINO ACIDS 4.25%/D5W 1,000 ML IV SCH (17:50)
[2017-09-22] MEDS: OLANZapine 5 MG TABLET PO SCH (22:12)
[2017-09-22] MEDS: ATORVASTATIN CA 20 MG TABLET (FP) PO SCH (22:12)
[2017-09-23] MEDS: ENALAPRILAT DIHYDRATE 1.25 MG/1 ML VIAL IVPB SCH ×2 (02:51→10:36)
[2017-09-23] MEDS: INSULIN SLIDING SCALE (NOVOLOG) 1 VIAL SQ SCH ×3 (06:01→17:56)
--- NOTE | 2017-09-23 09:41 | PN ---
Progress Note, Physician History of Present Illness: No events, fever, bleeding, discomfort reported overnight. PEG intact. No new blood work. - Current Medication List Current Medications: Active Medications Acetaminophen (Tylenol Suppository -) 650 mg [place] Q6H PRN PRN Reason: FEVER Last Admin: 09/17/17 20:34 Dose: 650 mg Atorvastatin Calcium (Lipitor -) 20 mg PO HS [facility] Last Admin: 09/22/17 22:12 Dose: 20 mg Enalaprilat (Vasotec Injection -) 0.625 mg IVPB Q6H-IV [facility] Last Admin: 09/23/17 02:51 Dose: 0.625 mg Heparin Sodium (Porcine) (Heparin -) 5,000 unit SQ BID [facility] Last Admin: 09/22/17 22:12 Dose: 5,000 unit Amino Acids (Clinimix -) 1,000 mls @ 42 mls/hr IV Q24H [facility] Last Admin: 09/22/17 17:50 Dose: 42 mls/hr CEFTRIAXONE 1 G/50 ML PREMIX (Ceftriaxone 1 Gm-D5w Bag) 50 mls @ 100 mls/hr IVPB DAILY [facility] Last Admin: 09/22/17 10:03 Dose: 100 mls/hr Insulin Aspart (Novolog Vial Sliding Scale -) 1 vial SQ TIDAC [facility] PRN Reason: Protocol Last Admin: 09/23/17 06:01 Dose: 2 units Isosorbide Mononitrate (Imdur -) 30 mg PO DAILY [facility] Last Admin: 09/22/17 10:10 Dose: Not Given Metoprolol Tartrate (Lopressor Injection -) 2.5 mg IVPUSH Q4H PRN PRN Reason: HYPERTENSION Olanzapine (Zyprexa -) 5 mg PO HS [facility] Last Admin: 09/22/17 22:12 Dose: 5 mg Potassium Chloride (K-Dur -) 20 meq PO DAILY [facility] Last Admin: 09/22/17 10:10 Dose: Not Given - Objective Vital Signs: Vital Signs Temperature 97.6 F 09/23/17 06:00 Pulse Rate 93 H 09/23/17 06:00 Respiratory Rate 20 09/23/17 06:00 Blood Pressure 128/56 09/23/17 06:00 O2 Sat by Pulse Oximetry (%) 94 L 09/22/17 20:55 Constitutional: Yes: No Distress, Calm Eyes: Yes: Conjunctiva Clear Gastrointestinal: Yes: Soft. No: Distention, Melena, Vomiting Neurological: Yes: Alert Labs: CBC, BMP 09/22/17 05:35 09/22/17 05:35 INR, PTT INR 1.18 (0.82-1.09) H 09/22/17 05:35 CBCD WBC 11.4 K/mm3 (4.0-10.0) H 09/22/17 05:35 RBC 4.28 M/mm3 (4.00-5.60) 09/22/17 05:35 Hgb 12.9 GM/dL (11.7-16.9) 09/22/17 05:35 Hct 38.0 % (35.4-49) 09/22/17 05:35 MCV 88.8 fl (80-96) 09/22/17 05:35 MCHC 33.9 g/dl (32.0-35.9) 09/22/17 05:35 RDW 14.1 % (11.9-15.9) 09/22/17 05:35 Plt Count 410 K/MM3 (134-434) 09/22/17 05:35 MPV 7.9 fl (7.5-11.1) 09/22/17 05:35 CMP Sodium 139 mmol/L (136-145) 09/22/17 05:35 Potassium 3.4 mmol/L (3.5-5.1) L 09/22/17 05:35 Chloride 102 mmol/L (98-107) 09/22/17 05:35 Carbon Dioxide 29 mmol/L (21-32) 09/22/17 05:35 Anion Gap 8 (8-16) 09/22/17 05:35 BUN 20 mg/dL (7-18) H 09/22/17 05:35 Creatinine 0.6 mg/dL (0.7-1.3) L 09/22/17 05:35 Creat Clearance w eGFR > 60 (>60) 09/22/17 05:35 Calcium 7.9 mg/dL (8.5-10.1) L 09/22/17 05:35 Total Bilirubin 0.7 mg/dL (0.2-1.0) D 09/22/17 05:35 AST 34 U/L (15-37) 09/22/17 05:35 ALT 28 U/L (12-78) 09/22/17 05:35 Alkaline Phosphatase 173 U/L (45-117) H D 09/22/17 05:35 Total Protein 6.5 g/dl (6.4-8.2) 09/22/17 05:35 Albumin 2.4 g/dl (3.4-5.0) L 09/22/17 05:35 Problem List - Problems (1) Dementia Code(s): F03.90 - UNSPECIFIED DEMENTIA WITHOUT BEHAVIORAL DISTURBANCE (2) Poor fluid intake Code(s): R63.8 - OTHER SYMPTOMS AND SIGNS CONCERNING FOOD AND FLUID INTAKE Assessment/Plan OK to use PEG as intended Aspiration precautions PEG care as per protocol Nutrition eval ordered.
[2017-09-23] MEDS: CEFTRIAXONE 1 G/50 ML PREMIX 50 ML IVPB SCH (10:35)
[2017-09-23] MEDS: ISOSORBIDE MONONITRATE 30 MG TAB.SR.24H (FP) PO SCH (10:36)
[2017-09-23] MEDS: HEPARIN NA (PORCINE) 5,000 UNITS/ML 1ML VIAL SQ SCH ×2 (10:36→22:26)
[2017-09-23] MEDS: POTASSIUM CHLORIDE TABS 20 MEQ TABLET.ER (FP) PO SCH (10:40)
--- NOTE | 2017-09-23 12:13 | PN ---
Progress Note, Physician Chief Complaint: s/p PEG placement patient awake alert appreicate urology note - Current Medication List Current Medications: Active Medications Acetaminophen (Tylenol Suppository -) 650 mg [place] Q6H PRN PRN Reason: FEVER Last Admin: 09/17/17 20:34 Dose: 650 mg Atorvastatin Calcium (Lipitor -) 20 mg PO HS [facility] Last Admin: 09/22/17 22:12 Dose: 20 mg Enalaprilat (Vasotec Injection -) 0.625 mg IVPB Q6H-IV [facility] Last Admin: 09/23/17 10:36 Dose: 0.625 mg Heparin Sodium (Porcine) (Heparin -) 5,000 unit SQ BID [facility] Last Admin: 09/23/17 10:36 Dose: 5,000 unit Amino Acids (Clinimix -) 1,000 mls @ 42 mls/hr IV Q24H [facility] Last Admin: 09/22/17 17:50 Dose: 42 mls/hr CEFTRIAXONE 1 G/50 ML PREMIX (Ceftriaxone 1 Gm-D5w Bag) 50 mls @ 100 mls/hr IVPB DAILY [facility] Last Admin: 09/23/17 10:35 Dose: 100 mls/hr Insulin Aspart (Novolog Vial Sliding Scale -) 1 vial SQ TIDAC [facility] PRN Reason: Protocol Last Admin: 09/23/17 06:01 Dose: 2 units Isosorbide Mononitrate (Imdur -) 30 mg PO DAILY [facility] Last Admin: 09/23/17 10:36 Dose: 30 mg Metoprolol Tartrate (Lopressor Injection -) 2.5 mg IVPUSH Q4H PRN PRN Reason: HYPERTENSION Olanzapine (Zyprexa -) 5 mg PO [facility] Last Admin: 09/22/17 22:12 Dose: 5 mg Potassium Chloride (K-Dur -) 40 meq PO DAILY [facility] - Objective Vital Signs: Vital Signs Temperature 97 F L 09/23/17 10:00 Pulse Rate 96 H 09/23/17 10:00 Respiratory Rate 20 09/23/17 10:00 Blood Pressure 120/70 09/23/17 10:00 O2 Sat by Pulse Oximetry (%) 94 L 09/23/17 09:00 Constitutional: Yes: Calm, Thin Cardiovascular: Yes: S1, S2 Respiratory: Yes: CTA Bilaterally Gastrointestinal: Yes: Soft, Other (abdominal binder and PEG) Genitourinary: Yes: Thurman Present Neurological: Yes: Alert, Confusion Labs: CBC, BMP 09/22/17 05:35 09/22/17 05:35 INR, PTT INR 1.18 (0.82-1.09) H 09/22/17 05:35 Problem List - Problems (1) Urinary retention with incomplete bladder emptying Assessment/Plan: thurman in place appreicate urology evaluation noted about flomax use will defer start of doxazosin to cardiology Code(s): R33.9 - RETENTION OF URINE, UNSPECIFIED (2) Poor fluid intake Assessment/Plan: s/p peg dietry evaluation regarding feeding once feeding starts via peg stop clinimix (3) Leukocytosis Assessment/Plan: iv rocephin course completed RUQ sono shows contracted GB with multiple gall stones] Microbiology 09/11/17 06:15 Urine - Urine Clean Catch Urine Culture - Final NO GROWTH OBTAINED no growth on blood cultures Microbiology 09/18/17 09:05 Blood - Peripheral Venous Blood Culture - Preliminary NO GROWTH OBTAINED AFTER 24 HOURS, INCUBATION TO CONTINUE FOR 4 DAYS. 09/18/17 08:10 Blood - Peripheral Venous Blood Culture - Preliminary NO GROWTH OBTAINED AFTER 24 HOURS, INCUBATION TO CONTINUE FOR 4 DAYS. Code(s): D72.829 - ELEVATED WHITE BLOOD CELL COUNT, UNSPECIFIED (4) Dementia Assessment/Plan: seen by psych started on zyprexa Code(s): F03.90 - UNSPECIFIED DEMENTIA WITHOUT BEHAVIORAL DISTURBANCE (5) Influenza A Assessment/Plan: isolation discontinued tamiflu course completed Code(s): J10.1 - FLU DUE TO OTH IDENT INFLUENZA VIRUS W OTH RESP MANIFEST (6) Congestive heart disease Assessment/Plan: acei and imdur Code(s): I50.9 - HEART FAILURE, UNSPECIFIED (7) Coronary artery disease Assessment/Plan: s/p peg po meds restart aspirin and plavix Code(s): I25.10 - ATHSCL HEART DISEASE OF [place] CORONARY ARTERY W/O ANG PCTRS (8) Elevated troponin Assessment/Plan: trend troponins- downward cardio on board echo done BB ,statin aspirin on hold for peg Code(s): R74.8 - ABNORMAL LEVELS OF OTHER SERUM ENZYMES Assessment/Plan will need snf [facility] planning
--- NOTE | 2017-09-23 14:26 | PN ---
Progress Note, Physician Chief Complaint: Pt is alert, not agitated. s/p PEG. History of Present Illness: Pt is an 87-year-old male (b. [place]), with PM history of non-insulin- dependent diabetes, CABG ( reports pt having the procedure ?1998; hx multiple MIs), s/p coronary angiogram 2016 ([place]; per , was told he might need "a pacemaker"), hypertension, dementia (hx primarily given by ), now presents with productive cough with pleuritic chest pain and possibly confusion since last night. Had a low-grade fever for 100.9 this a.m. as per . Able to give some history and only states he has cough with chest pain. Denies sob, body aches, nausea, vomiting, headache, neck pain, abd pain, change to BM or dysuria - Current Medication List Current Medications: Active Medications Acetaminophen (Tylenol Suppository -) 650 mg [place] Q6H PRN PRN Reason: FEVER Last Admin: 09/17/17 20:34 Dose: 650 mg Aspirin (Asa -) 81 mg GT DAILY [facility] Atorvastatin Calcium (Lipitor -) 20 mg PO HS [facility] Last Admin: 09/22/17 22:12 Dose: 20 mg Clopidogrel Bisulfate (Plavix -) 75 mg GT DAILY [facility] Enalapril Maleate (Vasotec -) 2.5 mg GT BID [facility] Heparin Sodium (Porcine) (Heparin -) 5,000 unit SQ BID [facility] Last Admin: 09/23/17 10:36 Dose: 5,000 unit Insulin Aspart (Novolog Vial Sliding Scale -) 1 vial SQ TIDAC [facility] PRN Reason: Protocol Last Admin: 09/23/17 06:01 Dose: 2 units Isosorbide Mononitrate (Imdur -) 30 mg PO DAILY [facility] Last Admin: 09/23/17 10:36 Dose: 30 mg Metoprolol Tartrate (Lopressor -) 25 mg GT DAILY [facility] Olanzapine (Zyprexa -) 5 mg PO HS [facility] Last Admin: 09/22/17 22:12 Dose: 5 mg Potassium Chloride (K-Dur -) 40 meq PO DAILY [facility] - Objective Vital Signs: Vital Signs Temperature 97 F L 09/23/17 10:00 Pulse Rate 96 H 09/23/17 10:00 Respiratory Rate 20 09/23/17 10:00 Blood Pressure 120/70 09/23/17 10:00 O2 Sat by Pulse Oximetry (%) 94 L 09/23/17 09:00 Constitutional: Yes: Thin Eyes: Yes: WNL HENT: Yes: WNL Neck: Yes: WNL Cardiovascular: Yes: S1 (split), S2 Respiratory: Yes: Regular Gastrointestinal: Yes: Soft, Other (s/p PEG) Genitourinary: No: Anuria Musculoskeletal: Yes: Muscle Weakness Extremities: Yes: Cool Edema: No Peripheral Pulses WNL: Yes Neurological: Yes: Weakness Psychiatric: Yes: Other (dementia) Labs: CBC, BMP 09/22/17 05:35 09/22/17 05:35 INR, PTT INR 1.18 (0.82-1.09) H 09/22/17 05:35 Problem List - Problems (1) Congestive heart disease Assessment/Plan: Now with PEG. Agree with changing vasotec to lisinopril. Give metoprolol tartrate bid for better 24 hour coverage. Code(s): I50.9 - HEART FAILURE, UNSPECIFIED (2) Coronary artery disease Assessment/Plan: s/p CABG ?1998. s/p coronary angiogram 2016 (f/u results of study: ? coronary stent). TNI 0.17-->0.33-->0.15; CKBM relative index is low. TNI ikely elevated from demand stress from sepsis. No acute STT changes on EKG ECHO: normal LVEF. On ASA and clopidogrel. On metoprolol for BP and HR control; CAD. Code(s): I25.10 - ATHSCL HEART DISEASE OF [place] CORONARY ARTERY W/O ANG PCTRS (3) Influenza A Assessment/Plan: s/p Tamiflu. Code(s): J10.1 - FLU DUE TO OTH IDENT INFLUENZA VIRUS W OTH RESP MANIFEST (4) Sepsis Assessment/Plan: s/p antibiotics and Tamiful.. Code(s): A41.9 - SEPSIS, UNSPECIFIED ORGANISM (5) Renal insufficiency Assessment/Plan: improved; maintain hydration. Code(s): N28.9 - DISORDER OF KIDNEY AND URETER, UNSPECIFIED (6) Leukocytosis Assessment/Plan: improving; off antibiotics. Code(s): D72.829 - ELEVATED WHITE BLOOD CELL COUNT, UNSPECIFIED (7) Hypercholesteremia Assessment/Plan: on atorvastatin; increased to 20 mg daily (LDL 92 mg/dL). Code(s): E78.00 - PURE HYPERCHOLESTEROLEMIA, UNSPECIFIED (8) Dementia Code(s): F03.90 - UNSPECIFIED DEMENTIA WITHOUT BEHAVIORAL DISTURBANCE (9) PSVT (paroxysmal supraventricular tachycardia) Assessment/Plan: IV metoprolol around the clock until able to swallow regularly. Keep K 4-4.5, Mg 2-2.3. Code(s): I47.1 - SUPRAVENTRICULAR TACHYCARDIA (10) Hypomagnesemia Assessment/Plan: repleted; presently 1.8. keep level 2-2.3; keep K+ 4-4.5. pT has PSVT. Code(s): E83.42 - HYPOMAGNESEMIA
[2017-09-23] MEDS ORDERED: METOPROLOL TARTRATE 25 MG TABLET (FP) PO SCH (14:45)
[2017-09-23] MEDS: POTASSIUM CHLORIDE ORAL LIQUID 20 MEQ/15 ML GT SCH (17:55)
[2017-09-23] MEDS: ATORVASTATIN CA 20 MG TABLET (FP) PO SCH (22:26)
[2017-09-23] MEDS: ENALAPRIL MALEATE 2.5 MG TABLET (FP) GT SCH (22:26)
[2017-09-23] MEDS: OLANZapine 5 MG TABLET PO SCH (22:26)
[2017-09-23] MEDS: METOPROLOL TARTRATE 25 MG TABLET (FP) GT SCH (22:26)
[2017-09-24] MEDS: INSULIN SLIDING SCALE (NOVOLOG) 1 VIAL SQ SCH ×3 (06:34→17:31)
[2017-09-24 07:09] LABS: EOS % 1.3 % (0-4.5); HEMATOCRIT 37.1 % (35.4-49); HEMOGLOBIN 12.5 GM/dL (11.7-16.9); LYMPH % 10.9 % (8-40); MCH 29.8 pg (25.7-33.7); MCHC 33.6 g/dl (32.0-35.9); MEAN CELL VOLUME 88.6 fl (80-96); MEAN PLT VOLUME 8.2 fl (7.5-11.1); MONO % 8.3 % (3.8-10.2); NEUT % 78.5 % (42.8-82.8); PLATELET COUNT 390 K/MM3 (134-434); RBC 4.18 M/mm3 (4.00-5.60); RDW 13.8 % (11.9-15.9); WHITE BLOOD COUNT 10.6 K/mm3 (4.0-10.0)
[2017-09-24 07:50] LABS: ANION GAP 9 (8-16); BILIRUBIN,TOTAL 0.8 mg/dL (0.2-1.0); BLOOD UREA NITROGEN 21 mg/dL (7-18); CALCIUM 8.6 mg/dL (8.5-10.1); CHLORIDE 100 mmol/L (98-107); CO2 29 mmol/L (21-32); CREATININE 0.9 mg/dL (0.7-1.3); GLUCOSE,RANDOM 162 mg/dL (74-106); POTASSIUM 4.1 mmol/L (3.5-5.1); SGPT/ALT 31 U/L (12-78); SODIUM 138 mmol/L (136-145)
[2017-09-24 07:53] LABS: ALBUMIN 2.3 g/dl (3.4-5.0); ALK PHOS 224 U/L (45-117); SGOT/AST 51 U/L (15-37); TOT PROT 6.5 g/dl (6.4-8.2)
[2017-09-24] MEDS ORDERED: PT OWN MED DRAWER 7, Y5N ONE (09:21)
[2017-09-24] MEDS ORDERED: METOPROLOL TARTRATE 25 MG TABLET (FP) GT SCH (10:00)
[2017-09-24] MEDS ORDERED: ISOSORBIDE MONONITRATE 30 MG TAB.SR.24H (FP) PO SCH (10:00)
--- NOTE | 2017-09-24 10:26 | DS ---
Physical Examination Vital Signs: Vital Signs Temperature 97.4 F L 09/24/17 06:00 Pulse Rate 86 09/24/17 06:00 Respiratory Rate 18 09/24/17 06:00 Blood Pressure 123/65 09/24/17 06:00 O2 Sat by Pulse Oximetry (%) 93 L 09/23/17 21:00 Findings/Remarks: S/P GTUBE DOING WELL Constitutional: Yes: No Distress Eyes: Yes: WNL HENT: Yes: WNL Neck: Yes: WNL Cardiovascular: Yes: WNL Respiratory: Yes: WNL, Other (GTUBE) Gastrointestinal: Yes: WNL Renal/: Yes: WNL Musculoskeletal: Yes: Muscle Weakness Extremities: Yes: WNL Edema: No Peripheral Pulses WNL: Yes Integumentary: Yes: WNL Wound/Incision: Yes: Clean/Dry Neurological: Yes: Unsteady Gait, Other ...Motor Strength: WNL Psychiatric: Yes: WNL Labs: CBC, BMP 09/24/17 05:35 09/24/17 05:35 Discharge Summary Reason For Visit: ELEVATED TROPONIN LEVELS Current Active Problems Congestive heart disease (Acute) Coronary artery disease (Acute) Dementia (Acute) Elevated troponin (Acute) Hypercholesteremia (Acute) Hypomagnesemia (Acute) Influenza A (Acute) Leukocytosis (Acute) Mild tongue swelling (Acute) PSVT (paroxysmal supraventricular tachycardia) (Acute) Poor fluid intake (Acute) Renal insufficiency (Acute) Sepsis (Acute) Urinary retention with incomplete bladder emptying (Acute) Procedures: Principal: CT SCAN Hospital Course: ADMITTED FOR METABOLIC TOXIC ENCEPHALOPATHY, POOR APPETITE, FTT, SEPSIS, UTI, URI, TREATED WITH ABX AND GTUBE PLACED. Condition: Fair - Instructions Diet, Activity, Other Instructions: GTUBE AND REPEAT SWALLOW EVAL IN 2 WEEKS Referrals: Wyatt Lee MD [Primary Care Provider] - Disposition: HALF-WAY FACILITY - Home Medications Comprehensive Discharge Medication List: Ambulatory Orders Amlodipine Besylate [Norvasc -] 2.5 mg PO DAILY 09/09/17 Clopidogrel Bisulfate [Clopidogrel] 75 mg PO DAILY 09/09/17 Digoxin [Lanoxin -] 0.125 mg PO DAILY 09/09/17 Isosorbide Mononitrate [Imdur -] 30 mg PO DAILY 09/09/17 Acetaminophen [Tylenol .Regular Strength -] 650 mg PO Q6H PRN tablet 09/17/17 Aspirin Coated [Ecotrin -] 81 mg PO DAILY tablet.ec 09/17/17 Insulin Sliding Scale [Novolog Vial Sliding Scale -] 1 vial SQ TIDAC units Metoprolol Tartrate [Lopressor -] 12.5 mg PO BID tablet 09/17/17 Olanzapine [Zyprexa -] 5 mg PO HS tablet 09/17/17 Potassium Chloride [K-Dur -] 20 meq PO DAILY tablet.er 09/17/17 Acetaminophen Suppository [Tylenol .Suppository -] 650 mg ID Q6H PRN supp.rect 09/24/17 Aspirin [ASA -] 81 mg GT DAILY tab.chew 09/24/17 Atorvastatin Ca [Lipitor] 20 mg PO HS tablet 09/24/17 Clopidogrel Bisulfate [Plavix -] 75 mg GT DAILY tablet 09/24/17 Enalapril Maleate [Vasotec -] 2.5 mg GT BID tablet 09/24/17 Metoprolol Tartrate [Lopressor -] 12.5 mg GT BID tablet 09/24/17 Metoprolol Tartrate [Lopressor -] 12.5 mg PO BID tablet 09/24/17 Metoprolol Tartrate [Lopressor -] 25 mg GT DAILY tablet 09/24/17 Potassium Chloride [Potassium Chloride Oral Liquid] 40 meq GT DAILY cup
--- NOTE | 2017-09-24 10:32 | PN ---
Progress Note, Physician History of Present Illness: 87-year-old male (b. [place]), with PMhistory of lbo-mopjjpg-keukyevro diabetes, CABG ( reports pt having the procedure ?1998; hx multiple MIs), s/ p coronary angiogram 2016 ([place]; per , was told he might need "a pacemaker"), hypertension, dementia (hx primarily given by ), now presents with productive cough with pleuritic chest pain and possibly confusion since last night. Had a low-grade fever for 100.9 this a.m. as per . Able to give some history and only states he has cough with chest pain. Denies sob, body aches, nausea, vomiting, headache, neck pain, abd pain, change to BM or dysuria - Current Medication List Current Medications: Active Medications Acetaminophen (Tylenol Suppository -) 650 mg [place] Q6H PRN PRN Reason: FEVER Last Admin: 09/17/17 20:34 Dose: 650 mg Aspirin (Asa -) 81 mg GT DAILY [facility] Atorvastatin Calcium (Lipitor -) 20 mg PO HS [facility] Last Admin: 09/23/17 22:26 Dose: 20 mg Clopidogrel Bisulfate (Plavix -) 75 mg GT DAILY [facility] Enalapril Maleate (Vasotec -) 2.5 mg GT BID [facility] Last Admin: 09/23/17 22:26 Dose: 2.5 mg Heparin Sodium (Porcine) (Heparin -) 5,000 unit SQ BID [facility] Last Admin: 09/23/17 22:26 Dose: 5,000 unit Insulin Aspart (Novolog Vial Sliding Scale -) 1 vial SQ TIDAC [facility] PRN Reason: Protocol Last Admin: 09/24/17 06:34 Dose: Not Given Metoprolol Tartrate (Lopressor -) 12.5 mg GT BID [facility] Last Admin: 09/23/17 22:26 Dose: 12.5 mg Olanzapine (Zyprexa -) 5 mg PO HS [facility] Last Admin: 09/23/17 22:26 Dose: 5 mg Potassium Chloride (Potassium Chloride Oral Liquid) 40 meq GT DAILY [facility] Last Admin: 09/23/17 17:55 Dose: 40 meq - Objective Vital Signs: Vital Signs Temperature 97.4 F L 09/24/17 06:00 Pulse Rate 86 09/24/17 06:00 Respiratory Rate 18 09/24/17 06:00 Blood Pressure 123/65 09/24/17 06:00 O2 Sat by Pulse Oximetry (%) 93 L 09/23/17 21:00 Eyes: Yes: WNL, Conjunctiva Clear, EOM Intact HENT: Yes: WNL, Atraumatic, Normocephalic Neck: Yes: WNL, Supple, Trachea Midline Cardiovascular: Yes: WNL, Regular Rate and Rhythm Respiratory: Yes: WNL, Regular, CTA Bilaterally Gastrointestinal: Yes: WNL, Normal Bowel Sounds Genitourinary: Yes: WNL Musculoskeletal: Yes: WNL Extremities: Yes: WNL Edema: No Integumentary: Yes: WNL ...Motor Strength: WNL Psychiatric: Yes: WNL Labs: CBC, BMP 09/24/17 05:35 09/24/17 05:35 INR, PTT INR 1.18 (0.82-1.09) H 09/22/17 05:35 Assessment/Plan Problems (1) Congestive heart disease Assessment/Plan: Now with PEG. Agree with changing vasotec to lisinopril. Give metoprolol tartrate bid for better 24 hour coverage. Code(s): I50.9 - HEART FAILURE, UNSPECIFIED (2) Coronary artery disease Assessment/Plan: s/p CABG ?1998. s/p coronary angiogram 2016 (f/u results of study: ? coronary stent). TNI 0.17-->0.33-->0.15; CKBM relative index is low. TNI ikely elevated from demand stress from sepsis. No acute STT changes on EKG ECHO: normal LVEF. On ASA and clopidogrel. On metoprolol for BP and HR control; CAD. Code(s): I25.10 - ATHSCL HEART DISEASE OF [place] CORONARY ARTERY W/O ANG PCTRS (3) Influenza A Assessment/Plan: s/p Tamiflu. Code(s): J10.1 - FLU DUE TO OTH IDENT INFLUENZA VIRUS W OTH RESP MANIFEST (4) Sepsis Assessment/Plan: s/p antibiotics and Tamiful.. Code(s): A41.9 - SEPSIS, UNSPECIFIED ORGANISM (5) Renal insufficiency Assessment/Plan: improved; maintain hydration. Code(s): N28.9 - DISORDER OF KIDNEY AND URETER, UNSPECIFIED (6) Leukocytosis Assessment/Plan: improving; off antibiotics. Code(s): D72.829 - ELEVATED WHITE BLOOD CELL COUNT, UNSPECIFIED (7) Hypercholesteremia Assessment/Plan: on atorvastatin; increased to 20 mg daily (LDL 92 mg/dL). Code(s): E78.00 - PURE HYPERCHOLESTEROLEMIA, UNSPECIFIED (8) Dementia Code(s): F03.90 - UNSPECIFIED DEMENTIA WITHOUT BEHAVIORAL DISTURBANCE (9) PSVT (paroxysmal supraventricular tachycardia) Assessment/Plan: IV metoprolol around the clock until able to swallow regularly. Keep K 4-4.5, Mg 2-2.3. Code(s): I47.1 - SUPRAVENTRICULAR TACHYCARDIA (10) Hypomagnesemia Assessment/Plan: repleted; presently 1.8. keep level 2-2.3; keep K+ 4-4.5. pT has PSVT. Code(s): E83.42 - HYPOMAGNESEMIA
[2017-09-24] MEDS: HEPARIN NA (PORCINE) 5,000 UNITS/ML 1ML VIAL SQ SCH ×2 (10:33→22:08)
[2017-09-24] MEDS: METOPROLOL TARTRATE 25 MG TABLET (FP) GT SCH ×2 (10:33→22:08)
[2017-09-24] MEDS: POTASSIUM CHLORIDE ORAL LIQUID 20 MEQ/15 ML GT SCH (10:34)
[2017-09-24] MEDS: ASPIRIN 81 MG CHEWABLE TABLETS GT SCH (10:34)
[2017-09-24] MEDS: ENALAPRIL MALEATE 2.5 MG TABLET (FP) GT SCH ×2 (10:34→22:08)
[2017-09-24] MEDS: CLOPIDOGREL BISULFATE 75 MG TABLET (FP) GT SCH (10:34)
--- NOTE | 2017-09-24 12:17 | PN ---
Progress Note, Physician History of Present Illness: No events, fever, bleeding, discomfort reported overnight. PEG intact. - Current Medication List Current Medications: Active Medications Acetaminophen (Tylenol Suppository -) 650 mg [place] Q6H PRN PRN Reason: FEVER Last Admin: 09/17/17 20:34 Dose: 650 mg Aspirin (Asa -) 81 mg GT DAILY [facility] Last Admin: 09/24/17 10:34 Dose: 81 mg Atorvastatin Calcium (Lipitor -) 20 mg PO HS [facility] Last Admin: 09/23/17 22:26 Dose: 20 mg Clopidogrel Bisulfate (Plavix -) 75 mg GT DAILY [facility] Last Admin: 09/24/17 10:34 Dose: 75 mg Enalapril Maleate (Vasotec -) 2.5 mg GT BID [facility] Last Admin: 09/24/17 10:34 Dose: 2.5 mg Heparin Sodium (Porcine) (Heparin -) 5,000 unit SQ BID [facility] Last Admin: 09/24/17 10:33 Dose: 5,000 unit Insulin Aspart (Novolog Vial Sliding Scale -) 1 vial SQ TIDAC [facility] PRN Reason: Protocol Last Admin: 09/24/17 11:31 Dose: Not Given Metoprolol Tartrate (Lopressor -) 12.5 mg GT BID [facility] Last Admin: 09/24/17 10:33 Dose: 12.5 mg Olanzapine (Zyprexa -) 5 mg PO HS [facility] Last Admin: 09/23/17 22:26 Dose: 5 mg Potassium Chloride (Potassium Chloride Oral Liquid) 40 meq GT DAILY [facility] Last Admin: 09/24/17 10:34 Dose: 40 meq - Objective Vital Signs: Vital Signs Temperature 97.4 F L 09/24/17 06:00 Pulse Rate 86 09/24/17 06:00 Respiratory Rate 18 09/24/17 06:00 Blood Pressure 123/65 09/24/17 06:00 O2 Sat by Pulse Oximetry (%) 93 L 09/23/17 21:00 Constitutional: Yes: Anxious Eyes: Yes: Conjunctiva Clear Gastrointestinal: Yes: Other (PEG and PEG site are intact) Labs: CBC, BMP 09/24/17 05:35 09/24/17 05:35 INR, PTT INR 1.18 (0.82-1.09) H 09/22/17 05:35 CBCD WBC 10.6 K/mm3 (4.0-10.0) H 09/24/17 05:35 RBC 4.18 M/mm3 (4.00-5.60) 09/24/17 05:35 Hgb 12.5 GM/dL (11.7-16.9) 09/24/17 05:35 Hct 37.1 % (35.4-49) 09/24/17 05:35 MCV 88.6 fl (80-96) 09/24/17 05:35 MCHC 33.6 g/dl (32.0-35.9) 09/24/17 05:35 RDW 13.8 % (11.9-15.9) 09/24/17 05:35 Plt Count 390 K/MM3 (134-434) 09/24/17 05:35 MPV 8.2 fl (7.5-11.1) 09/24/17 05:35 CMP Sodium 138 mmol/L (136-145) 09/24/17 05:35 Potassium 4.1 mmol/L (3.5-5.1) D 09/24/17 05:35 Chloride 100 mmol/L (98-107) 09/24/17 05:35 Carbon Dioxide 29 mmol/L (21-32) 09/24/17 05:35 Anion Gap 9 (8-16) 09/24/17 05:35 BUN 21 mg/dL (7-18) H 09/24/17 05:35 Creatinine 0.9 mg/dL (0.7-1.3) D 09/24/17 05:35 Creat Clearance w eGFR > 60 (>60) 09/24/17 05:35 Calcium 8.6 mg/dL (8.5-10.1) 09/24/17 05:35 Total Bilirubin 0.8 mg/dL (0.2-1.0) 09/24/17 05:35 AST 51 U/L (15-37) H D 09/24/17 05:35 ALT 31 U/L (12-78) 09/24/17 05:35 Alkaline Phosphatase 224 U/L (45-117) H D 09/24/17 05:35 Total Protein 6.5 g/dl (6.4-8.2) 09/24/17 05:35 Albumin 2.3 g/dl (3.4-5.0) L 09/24/17 05:35 Problem List - Problems (1) Dementia Code(s): F03.90 - UNSPECIFIED DEMENTIA WITHOUT BEHAVIORAL DISTURBANCE (2) Poor fluid intake Code(s): R63.8 - OTHER SYMPTOMS AND SIGNS CONCERNING FOOD AND FLUID INTAKE Assessment/Plan Aspiration precautions PEG care as per protocol Nutrition eval noted
[2017-09-24] MEDS: OLANZapine 5 MG TABLET PO SCH (22:08)
[2017-09-24] MEDS: ATORVASTATIN CA 20 MG TABLET (FP) PO SCH (22:08)
[2017-09-25] MEDS: INSULIN SLIDING SCALE (NOVOLOG) 1 VIAL SQ SCH ×2 (06:01→11:36)
[2017-09-25] MEDS ORDERED: INSULIN (NOVOLOG) ASPART 100 UNITS/ML 10ML VIAL ONE (08:37)
[2017-09-25] MEDS: POTASSIUM CHLORIDE ORAL LIQUID 20 MEQ/15 ML GT SCH (09:04)
[2017-09-25] MEDS: HEPARIN NA (PORCINE) 5,000 UNITS/ML 1ML VIAL SQ SCH (09:04)
[2017-09-25] MEDS: METOPROLOL TARTRATE 25 MG TABLET (FP) GT SCH (09:05)
[2017-09-25] MEDS: CLOPIDOGREL BISULFATE 75 MG TABLET (FP) GT SCH (09:05)
[2017-09-25] MEDS: ASPIRIN 81 MG CHEWABLE TABLETS GT SCH (09:05)
[2017-09-25] MEDS: ENALAPRIL MALEATE 2.5 MG TABLET (FP) GT SCH (09:05)
--- NOTE | 2017-09-25 09:19 | PN ---
Progress Note, Physician - Current Medication List Current Medications: Active Medications Acetaminophen (Tylenol Suppository -) 650 mg GA Q6H PRN PRN Reason: FEVER Last Admin: 09/17/17 20:34 Dose: 650 mg Aspirin (Asa -) 81 mg GT DAILY [facility] Last Admin: 09/25/17 09:05 Dose: 81 mg Atorvastatin Calcium (Lipitor -) 20 mg PO HS [facility] Last Admin: 09/24/17 22:08 Dose: 20 mg Clopidogrel Bisulfate (Plavix -) 75 mg GT DAILY [facility] Last Admin: 09/25/17 09:05 Dose: 75 mg Enalapril Maleate (Vasotec -) 2.5 mg GT BID [facility] Last Admin: 09/25/17 09:05 Dose: 2.5 mg Heparin Sodium (Porcine) (Heparin -) 5,000 unit SQ BID [facility] Last Admin: 09/25/17 09:04 Dose: 5,000 unit Insulin Aspart (Novolog Vial Sliding Scale -) 1 vial SQ TIDAC [facility] PRN Reason: Protocol Last Admin: 09/25/17 06:01 Dose: Not Given Metoprolol Tartrate (Lopressor -) 12.5 mg GT BID [facility] Last Admin: 09/25/17 09:05 Dose: 12.5 mg Olanzapine (Zyprexa -) 5 mg PO [facility] Last Admin: 09/24/17 22:08 Dose: 5 mg Potassium Chloride (Potassium Chloride Oral Liquid) 40 meq GT DAILY [facility] Last Admin: 09/25/17 09:04 Dose: 40 meq - Objective Vital Signs: Vital Signs Temperature 98.4 F 09/25/17 05:54 Pulse Rate 91 H 09/25/17 05:54 Respiratory Rate 20 09/25/17 05:54 Blood Pressure 125/70 09/25/17 05:54 O2 Sat by Pulse Oximetry (%) 96 09/24/17 21:00 Cardiovascular: Yes: S1, S2 Respiratory: Yes: Regular, CTA Bilaterally Gastrointestinal: Yes: Normal Bowel Sounds, Soft Neurological: Yes: Weakness Labs: CBC, BMP 09/24/17 05:35 09/24/17 05:35 INR, PTT INR 1.18 (0.82-1.09) H 09/22/17 05:35 Assessment/Plan - Problems (1) Urinary retention with incomplete bladder emptying Assessment/Plan: thurman in place appreciate urology evaluation noted about flomax use will defer start of doxazosin to cardiology Code(s): R33.9 - RETENTION OF URINE, UNSPECIFIED (2) Poor fluid intake Assessment/Plan: s/p peg dietary evaluation regarding feeding once feeding starts via peg stop clinimix (3) Leukocytosis Assessment/Plan: iv rocephin course completed RUQ sono shows contracted GB with multiple gall stones] Microbiology 09/11/17 06:15 Urine - Urine Clean Catch Urine Culture - Final NO GROWTH OBTAINED no growth on blood cultures Microbiology 09/18/17 09:05 Blood - Peripheral Venous Blood Culture - Preliminary NO GROWTH OBTAINED AFTER 24 HOURS, INCUBATION TO CONTINUE FOR 4 DAYS. 09/18/17 08:10 Blood - Peripheral Venous Blood Culture - Preliminary NO GROWTH OBTAINED AFTER 24 HOURS, INCUBATION TO CONTINUE FOR 4 DAYS. Code(s): D72.829 - ELEVATED WHITE BLOOD CELL COUNT, UNSPECIFIED (4) Dementia Assessment/Plan: seen by psych started on zyprexa Code(s): F03.90 - UNSPECIFIED DEMENTIA WITHOUT BEHAVIORAL DISTURBANCE (5) Influenza A Assessment/Plan: isolation discontinued tamiflu course completed Code(s): J10.1 - FLU DUE TO OTH IDENT INFLUENZA VIRUS W OTH RESP MANIFEST (6) Congestive heart disease Assessment/Plan: acei and imdur Code(s): I50.9 - HEART FAILURE, UNSPECIFIED (7) Coronary artery disease Assessment/Plan: s/p peg po meds restart aspirin and plavix Code(s): I25.10 - ATHSCL HEART DISEASE OF [place] CORONARY ARTERY W/O ANG PCTRS (8) Elevated troponin Assessment/Plan: trend troponins- downward cardio on board echo done BB ,statin aspirin on hold for peg Code(s): R74.8 - ABNORMAL LEVELS OF OTHER SERUM ENZYMES Assessment/Plan will need snf placement- [facility] planning
[2017-09-25 09:37] VITALS: BP 114/56; PULSE 89; TEMP 98
== END 2017-09-25 14:52 | DRG 871 ==
LOC: JER 09:40 → JERBED 12:50 → J4S 09-10 13:51
PROVIDERS: ADMIT Family Medicine; ATTEND Family Medicine
PROC: 0T9B70Z Drainage of Bladder with Drainage Device, Via Natural or Artificial Opening (ICD-10-PCS; 2017-09-21)
PROC: 0DJ08ZZ Inspection of Upper Intestinal Tract, Via Natural or Artificial Opening Endoscopic (ICD-10-PCS; 2017-09-22)
PROC: 0DH63UZ Insertion of Feeding Device into Stomach, Percutaneous Approach (ICD-10-PCS; principal; 2017-09-22 11:30)
DX: A41.9 Sepsis, unspecified organism (principal); E43 Unspecified severe protein-calorie malnutrition; G92 Toxic encephalopathy; J69.0 Pneumonitis due to inhalation of food and vomit; R64 Cachexia; Z68.1 Body mass index [BMI] 19.9 or less, adult; I47.1 Supraventricular tachycardia; I50.32 Chronic diastolic (congestive) heart failure; I24.8 Other forms of acute ischemic heart disease; J09.X9 Influenza due to identified novel influenza A virus with other manifestations; Z95.1 Presence of aortocoronary bypass graft; I11.0 Hypertensive heart disease with heart failure; I25.10 Atherosclerotic heart disease of native coronary artery without angina pectoris; I25.2 Old myocardial infarction; I44.0 Atrioventricular block, first degree; I49.9 Cardiac arrhythmia, unspecified; R05 Cough; D72.829 Elevated white blood cell count, unspecified; F03.90 Unspecified dementia, unspecified severity, without behavioral disturbance, psychotic disturbance, mood disturbance, and anxiety; Z79.84 Long term (current) use of oral hypoglycemic drugs; E11.9 Type 2 diabetes mellitus without complications; E83.42 Hypomagnesemia; E78.00 Pure hypercholesterolemia, unspecified; R62.7 Adult failure to thrive; N28.9 Disorder of kidney and ureter, unspecified; K80.20 Calculus of gallbladder without cholecystitis without obstruction; R33.9 Retention of urine, unspecified
CPT/HCPCS: 36415; 70450-TC; 71045-TC; 76705-TC; 80048; 80053; 80061; 80162; 81003; 81015; 82550; 82553; 82962; 83036; 83721; 83735; 83880; 84443; 84484; 85025; 85027; 85610; 87040; 87086; 87491; 87591; 87804; 93005; 93010; 93306-TC; 97116-GP; 97161-GP; 99283-25; J1644